=== PATIENT | male | born 1960 | race Caucasian/White ===

== ENCOUNTER 2020-03-01 09:05 | Outpatient (REF) | payer OTHER, SELFPAY ==
--- NOTE | 2020-03-01 09:21 | US_ITS ---
EXAMINATION: US SCROTUM CLINICAL INFORMATION: Left testicle pain. COMPARISON: None TECHNIQUE: A sonogram of the scrotum was performed assessing estrada-scale appearance and color Doppler flow. Spectral Doppler analysis of the arterial and venous flow were performed in the testes bilaterally. FINDINGS: RIGHT: Right testicle measures 4.5 x 2.3 x 3.1 cm, volume 16 mL. No focal testicular parenchymal lesions are visualized. Spectral Doppler analysis of the arterial and venous flow is normal in the right testis. Right epididymal head is normal in size. There is a small 3 mm right epididymal head cyst. Right epididymal Doppler flow is normal. There is a small right hydrocele. There is no right varicocele. LEFT: Left testicle measures 3.3 x 2.1 x 2.8 cm, volume 10 mL. No focal testicular parenchymal lesions are visualized. Spectral Doppler analysis of the arterial and venous flow is normal in the left testis. Left epididymal head is normal in size. There is a small 3 mm left epididymal head cyst measuring 3 mm. No left hydrocele is seen. Left epididymal Doppler flow is normal. There is a small left hydrocele. There is a left varicocele. US/US scrotum IMPRESSION: Left varicocele. Small bilateral hydroceles, left greater than right. Small bilateral epididymal head cysts.
== END 2020-03-01 09:06 | disposition home or self-care (01) ==
LOC: HO.HMGCX 09:05
PROVIDERS: PCP Internal Medicine; Visit Provider Nurse Practitioner Family
DX: N50.812 Left testicular pain (principal)
CPT/HCPCS: 76870

== ENCOUNTER → 2020-03-03 09:05 | Outpatient (BNVA) | payer OTHER, SELFPAY | PROVIDERS: PCP Internal Medicine; Visit Provider Urology | DX: I86.1 Scrotal varices (principal); N50.812 Left testicular pain | CPT/HCPCS: 99212 ==

== ENCOUNTER 2020-03-13 09:53 | Day surgery (SDC) | payer OTHER, SELFPAY ==
[2020-03-13] VITALS (16 sets, daily range): BP systolic 87–127; BP diastolic 45–79; PULSE 56–84; RESP 16–20; TEMP 36.1–36.6; O2SAT 94–98; BMI 31.0
--- NOTE | 2020-03-13 11:43 | MHC.SHP ---
Pre-Procedural Eval Section A The patient is an INPATIENT: No Changes since office visit: No Cold of Flu in the past 2 weeks, No New Medical Problems, No Changes in Medication and No Patient answered all questions The History & Physical has been completed within 30 days and I have reviewed it.: Yes Section B Chief Complaint: Left Testicular Pain Allergies: Allergies Allergy/AdvReac Type Severity Reaction Status Date / Time No Known Allergies Allergy Unverified 03/01/20 08:40 [No Known Allergies*] Plan Patient has been examined and remains a candidate for the planned procedure
--- NOTE | 2020-03-13 13:10 | P.CONAN_ITS ---
FORMERLY [facility], [facility] Social History Social History Smoking Status: Former smoker Use of substances other than those prescribed or required for medical reasons: No Advance Directives: No Advance Directives Information Provided: Yes Meds Allergies Allergy/AdvReac Type Severity Reaction Status Date / Time No Known Allergies Allergy Unverified 03/01/20 08:40 [No Known Allergies*] Home Medications Medication Instructions Recorded Confirmed Type albuterol sulfate 90 mcg/actuation 0 mcg INHALATION 03/01/20 History aerosol inhaler amoxicillin 500 mg tablet 500 mg PO Q8H 03/01/20 History azithromycin 250 mg tablet mg PO DIRECTED 03/01/20 History betamethasone dipropionate 0.05 % applic TOPICAL DAILY 03/01/20 History topical cream bupropion HCl 100 mg tablet,12 hr 100 mg PO BID 03/01/20 History sustained-release clobetasol 0.05 % topical ointment 1 applic TOPICAL BID 03/01/20 History duloxetine 30 mg capsule,delayed 90 mg PO BEDTIME 03/01/20 History release flu vacc [id number] 6mos up(PF) ml IM 03/01/20 History fluticasone propionate 50 2 spray INTRANASAL DAILY 03/01/20 History mcg/actuation nasal spray,suspension hydrocortisone 2.5 % topical cream applic TOPICAL 03/01/20 History hydrocortisone 2.5 % topical TOPICAL DAILY 03/01/20 History ointment ibuprofen 800 mg tablet 800 mg PO TID 03/01/20 History lamotrigine 100 mg tablet 100 mg PO DAILY 03/01/20 History lamotrigine 200 mg tablet 200 mg PO DAILY 03/01/20 History lorazepam 0.5 mg tablet 0.5 mg PO BID PRN 03/01/20 History methylprednisolone 4 mg tablets in mg PO 03/01/20 History a dose pack prednisone 10 mg tablet 0 mg PO 03/01/20 History tadalafil 20 mg tablet 20 mg PO 03/01/20 History triamcinolone acetonide 0.1 % applic TOPICAL 03/01/20 History topical cream Exam Exam Date and Time: March 13, 2020 1310 Height,Weight and Vital Signs: Height 5 ft 9 in Weight 95.254 kg Last Vital Signs Temp 96.9 F 03/13/20 10:59 Pulse 73 03/13/20 10:59 Resp 18 03/13/20 10:59 BP 124/72 03/13/20 10:59 Pulse Ox 98 03/13/20 10:59 Airway Mallampati Class: II TM Dist: >3cm Neck ROM: Full Assessment and Plan Assessment Anesthesia Assessment: Anesthesia Plan Discussed and Chart Reviewed Final Anesthetic Review NPO: Yes ASA Class: II Final Preanesthetic Review: No Changes in Pt Med Stat, Meds/Allgs Chart Reviewed, Consent Obtained/Reviewed and Anes Risks/Benef Reviewed Patient Risk: Low Procedure Risk: Low Assessment/Block/Sedation in SS: Assess/Block/Sedation-SS Anesthetic Plan Anesthetic Plan: GA Disposition: Standard PACU
--- NOTE | 2020-03-13 13:50 | PM.OP ---
Brief Operative Note Date of Service: 03/13/20 Pre-op diagnosis: 1. left varicocele 2. left testicular pain Post-op diagnosis: same Procedure: 1. left varicocelectomy 2. left denervation of the cord Surgeon: Horace Dudley MD Anesthesia: GLMA Estimated blood loss (mL): 0 Pathology: none sent Condition: stable Disposition: same day
--- NOTE | 2020-03-13 13:51 | W.PM.OPN ---
Operative Note Operative Note Date of Service: 03/13/20 Narrative: PreOperative Diagnosis: 1. Left varicocele, 2. Left testicular pain persistent Post Operative Diagnosis: same Procedure: 1. left varicocelectomy 2. denervation of the left cord Surgeon: Dr Horace Dudley Anesthesia: general Indications for procedure: this is a 59-year-old male. Persistent pain on left testicle. On visits to the office was given a cord block which addressed the pain on the left side for 8-10 hours. Given the findings and response to a cord block there is an 85% chance that had has pain can be controlled with then evaluation of the left cord. In addition he has a left varicocele that male may not be contributing to pain. These procedures will be performed with the operative microscope. Risks and benefits including but not limited to loss of testicle have been discussed. Procedure: After informed consent was verified the patient was brought to the operating room and placed in a supine position. anesthesia was administered per protocol. The patient was prepped and draped in sterile fashion. Safety pause time-out was observed. Site was confirmed. A 1 and 1/2 inch subinguinal incision on the left side was marked. Skin was infiltrated with local anesthetic. Sharp dissection was used through the skin into the subcutaneous tissue. Subcutaneous tissue was dissected down until the cord was found. The cord was elevated and isolated using a Julio drain. It was then placed on top of a blade handle. The operative microscope was brought into position. Using the operative microscope dissection was started. The surrounding invagination of the cremasteric fibers were divided 1st longitudinally and then circumferentially using bipolar cautery and sharp dissection. The cord itself was divided 2 packets. The vas deferens with this associated small vessels. And the rest of the cord along with the fat -around these vessels. Focus was 1st brought to the vas deferens. This packet was thinned down till there were remaining veins in a presume small artery. The vas itself was isolated and using a sharp blade the sheath for a 1 cm distance was scraped to remove surface nerves as part of the denervation procedure. The 2nd packet was examined and muscle fibers divided. There were noted to be 2 large veins. There was noted to be a 3rd structure with a thick wall. Using the Doppler this confirmed to be a cord artery. This was dissected free and isolated. The veins were dissected free and using 4-0 silk ties were isolated and divided. At the completion of the dissection there was a vas deferens with associated vessels and lymphatics. There was also a 2nd cord packet containing the artery and 2 lymphatics. All veins had been divided in the non vas deferens packet. The incision was irrigated. The cord replaced. The deep tissues were closed using interrupted 3-0 Vicryl ties. The skin was closed using a running 4-0 in subcuticular Maxon. Dressing applied. He tolerated the procedure well was extubated in operating room and transferred in stable condition to the recovery area. Recommend ice to area today and 3 days rest before commencing activity. This is the end of the dictation by Pathology: None Drains: none
[2020-03-13] MEDS: Acetaminophen 325 MG TABLET 650 MG PO (14:13)
[2020-03-13] MEDS: oxyCODONE HCl Immed Release 5 MG TABLET PO (14:13)
[2020-03-13] MEDS: ondansetron HCL 4 MG/2 ML VIAL IVPUSH (15:17)
== END 2020-03-13 16:30 | disposition home or self-care (01) ==
PROVIDERS: PCP Internal Medicine; Visit Provider Urology
PROC: (CPT 55530; principal; 2020-03-13 11:50)
PROC: (CPT 55530; 2020-03-13 11:50)
DX: N50.812 Left testicular pain (principal); I86.1 Scrotal varices; N41.1 Chronic prostatitis; Z79.899 Other long term (current) drug therapy; Z79.52 Long term (current) use of systemic steroids; Z79.51 Long term (current) use of inhaled steroids; Z87.891 Personal history of nicotine dependence
CPT/HCPCS: 55530; J1100; J2250; J2405; J3010

== ENCOUNTER 2020-04-19 10:19 | Emergency (ER) | payer OTHER, SELFPAY ==
--- NOTE | 2020-04-19 10:28 | US_ITS ---
EXAMINATION: US SCROTUM CLINICAL INFORMATION: Left testicular pain. COMPARISON: None TECHNIQUE: A sonogram of the scrotum was performed assessing estrada-scale appearance and color Doppler flow. Spectral Doppler analysis of the arterial and venous flow were performed in the testes bilaterally. FINDINGS: RIGHT: Right testicle measures 4.2 x 2.3 x 2.8 cm, volume 13.8 mL. No focal testicular parenchymal lesions are visualized. Spectral Doppler analysis of the arterial and venous flow is normal in the right testis. Right epididymal head is normal in size. There is a small right epididymal head cyst that measures 3 mm. No right hydrocele or varicocele is seen. Right epididymal Doppler flow is normal. LEFT: Left testicle measures 3.6 x 2.6 x 2.8 cm, volume 13.4 mL. No focal testicular parenchymal lesions are visualized. Spectral Doppler analysis of the arterial and venous flow is seen in the left testis however color flow appears slightly decreased compared to the right side. Left epididymal head is normal in size. There is a large left varicocele. There is a small left hydrocele.. Left epididymal Doppler flow is normal. US/US scrotum doppler IMPRESSION: Normal-appearing testicles. Arterial and venous flow is documented to the left testicle however color flow appears slightly decreased on the left compared to the right side. If there is clinical suspicion of torsion, nuclear medicine scan would be recommended. Large left varicocele. Small left hydrocele.
[2020-04-19 10:37] VITALS: BP 131/76; PULSE 103; RESP 16; TEMP 36.2; O2SAT 97; BMI 32.8
--- NOTE | 2020-04-19 10:58 | ED_ITS ---
HPI - Male Genitourinary General Chief complaint: Urogenital-Male Stated complaint: testicular pain Time Seen by Provider: 04/19/20 10:27 Source: patient Mode of arrival: ambulatory Limitations: no limitations History of Present Illness HPI Narrative: 59 y/o male with history of persistent left testicular pain with history of varicocele s/p left varicocelectomy & denervation of the left cord on 03/13/[address] Dudley who presents to the ER with 1 week of worsening left testicular pain, swelling and difficulty voiding. He states the pain has been worsening each day. It started in his left testicle, now involves his entire scrotum, pelvis and low back. He feels like he can't completely empty his bladder and it hurts to pee. He denies fever, chills, N/V, diarrhea, hematuria, penile discharge. MD Complaint: testicle pain and testicle swelling Onset (ago): week(s) (1) Duration: constant Location: left testicle Radiation: abdomen Severity: moderate Severity scale (1-10): 6 Quality: aching and burning Relieving factors: none Exacerbating factors: urination Context: recent surgery Associated symptoms: Reports swelling, urinary retention and dysuria Related Data Sexually active: No Home Medications Medication Instructions Recorded Confirmed albuterol sulfate 90 mcg/actuation 0 mcg INHALATION 03/01/20 aerosol inhaler amoxicillin 500 mg tablet 500 mg PO Q8H 03/01/20 azithromycin 250 mg tablet mg PO DIRECTED 03/01/20 betamethasone dipropionate 0.05 % applic TOPICAL DAILY 03/01/20 topical cream bupropion HCl 100 mg tablet,12 hr 100 mg PO BID 03/01/20 sustained-release clobetasol 0.05 % topical ointment 1 applic TOPICAL BID 03/01/20 duloxetine 30 mg capsule,delayed 90 mg PO BEDTIME 03/01/20 release flu vacc [id number] 6mos up(PF) ml IM 03/01/20 fluticasone propionate 50 2 spray INTRANASAL DAILY 03/01/20 mcg/actuation nasal spray,suspension hydrocortisone 2.5 % topical cream applic TOPICAL 03/01/20 hydrocortisone 2.5 % topical TOPICAL DAILY 03/01/20 ointment ibuprofen 800 mg tablet 800 mg PO TID 03/01/20 lamotrigine 100 mg tablet 100 mg PO DAILY 03/01/20 lamotrigine 200 mg tablet 200 mg PO DAILY 03/01/20 lorazepam 0.5 mg tablet 0.5 mg PO BID PRN 03/01/20 methylprednisolone 4 mg tablets in mg PO 03/01/20 a dose pack prednisone 10 mg tablet 0 mg PO 03/01/20 tadalafil 20 mg tablet 20 mg PO 03/01/20 triamcinolone acetonide 0.1 % applic TOPICAL 03/01/20 topical cream Previous Rx's Medication Instructions Recorded tramadol 50 mg PO Q6H PRN #14 tab 03/13/20 ciprofloxacin HCl 500 mg PO Q12H #14 tab 04/19/20 oxycodone-acetaminophen [Percocet] 1 tab PO Q6H PRN #10 tab 04/19/20 Allergies Allergy/AdvReac Type Severity Reaction Status Date / Time No Known Allergies Allergy Unverified 03/01/20 08:40 [No Known Allergies*] Review of Systems Review of Systems: Constitutional: No Fever, No Chills ENT/Mouth: No sore throat, No Rhinorrhea, No Swallowing Difficulty Eyes: No Eye Pain, No Swelling, No Redness Cardiovascular: No Chest Pain, No SOB, No Orthopnea, No Edema Respiratory: No Cough, No Sputum, No Wheezing, No dyspnea Gastrointestinal: No Nausea, No Vomiting, No Diarrhea, No abdominal Pain, No Hematochezia, No Melena Genitourinary: + Dysuria, No Urinary Frequency, No Hematuria Musculoskeletal: No joint pain, No Myalgias Skin: No Skin Lesions, No rash Neuro: No Weakness, No Numbness, No Dizziness, No Headache Psych: No Anxiety/Panic, No Depression Heme/Lymph: No Bruising, No Lymphadenopathy Endocrine: No Polyuria, No Polydipsia PMFSH Social History Social History Smoking Status: Former smoker Smoked in Last 30 Days: No Use of substances other than those prescribed or required for medical reasons: No Advance Directives: No Advance Directives Information Provided: Yes Physical Exam Vital Signs: Vital Signs: Last Vital Signs Temp 97.2 F 04/19/20 10:37 Pulse 83 04/19/20 12:07 Resp 18 04/19/20 12:07 BP 115/70 04/19/20 12:07 Pulse Ox 96 04/19/20 12:07 Body Mass Index 32.8 Appearance: Alert. Oriented X3. No acute distress. Eyes: Pupils equal, round and reactive to light. ENT: Pharynx normal. Neck: Normal inspection. Neck supple. CVS: Normal heart rate and rhythm. Pulses normal. Respiratory: No respiratory distress. Breath sounds normal. Abdomen: Obses, Soft with suprapubic tenderness, normal +BS x4 Genitalis: left varicocele that extends poseriorly, tender, enlarged and tender epidydimus on the left. normal penis, circumcised. Skin: Skin warm and dry. Normal skin color. Normal skin turgor. No rashes. Extremities: No lower extremity edema. Neuro: Oriented X 3. No motor deficit. No sensory deficit. Course Course Course Narrative: 59 y/o male with history of left varicocelectomy & denervation of the left cord on 03/13 presenting with worsening testicular pain x1 week with difficulty voiding x2 days. US and UA pending. Reevaluation(s) Reevaluation #1: US shows Normal-appearing testicles. Arterial and venous flow is documented to the left testicle however color flow appears slightly decreased on the left compared to the right side. If there is clinical suspicion of torsion, nuclear medicine scan would be recommended. Large left varicocele. Small left hydrocele. Doubt testicular torision given his presentation. UA negative. PVR residual Results were relayed to Dr. Dudley who would like to start antibiotics, give meds for pain control and have him follow up in the office early next week. He was informed of the results and the plan, he agrees. Stable for d/c. [facility] - Male Genitourinary Lab Data Result diagrams: 04/19/20 12:08 04/19/20 12:08 Labs: Lab Results 04/19/20 04/19/20 04/19/20 Range/Units 12:00 12:08 12:08 WBC 7.6 (4.8-10.8) X10*3/uL RBC 4.53 L (4.60-5.80) X10*6/uL Hgb 14.0 (14.0-18.0) g/dl Hct 41.3 L (42-52) % MCV 91.2 (80-98) fL MCH 30.9 (27.0-33.0) pg MCHC 33.9 (31.0-36.0) g/dl RDW 11.6 (11.0-16.0) % Plt Count 299 (160-400) X10*3/uL MPV 9.4 (9.4-12.4) fL Immature Gran % (Auto) 0.3 (0.0-0.4) % Neut % (Auto) 56.7 (45-73) % Lymph % (Auto) 29.9 (20-40) % Stephenson % (Auto) 9.3 (2-11) % Eos % (Auto) 3.1 (0-4) % Baso % (Auto) 0.7 (0-2) % Lymph # (Auto) 2.3 (1.2-4.9) X10*3/uL [place] # (Auto) 0.7 (0.1-1.2) X10*3/uL Eos # (Auto) 0.2 (0.0-0.4) X10*3/uL Baso # (Auto) 0.1 (0.0-0.2) X10*3/uL Abs Immat Gran (auto) 0.02 (0.00-0.03) X10*3/uL Absolute Neuts (auto) 4.3 (2.0-8.3) X10*3/uL Absolute Nucleated RBC 0.000 (0.0-0.012) X10*3/uL Nucleated RBC % (auto) 0.0 (0.0-0.2) /100WBC Sodium 139 (135-145) mmol/L Potassium 4.3 (3.3-5.1) mmol/l Chloride 103 (96-108) mmol/L Carbon Dioxide 30 H (22-29) mmol/L Anion Gap 10 L (12-20) BUN 10 (9-16) mg/dL Creatinine 0.94 (0.5-1.4) mg/dL Estim Creat Clear Calc 101.4 Estimated GFR > 60 Random Glucose 88 (60-115) mg/dL Calcium 9.2 (8.4-10.2) mg/dL Magnesium 2.2 (1.6-2.6) mg/dL Total Bilirubin 0.5 (0.0-1.0) mg/dL Direct Bilirubin 0.2 (0.0-0.5) mg/dL AST 16 (5-37) U/L ALT 21 (0-40) U/L Alkaline Phosphatase 68 (39-117) U/L Total Protein 6.8 (6.5-8.0) g/dL Albumin 4.2 (3.5-5.0) g/dL Urine Color YELLOW Urine Appearance CLEAR Urine pH 7.0 (5.0-8.0) Ur Specific [place] 1.020 (1.005-1.025) Urine Protein NEG (NEG-TRACE) MG/DL Urine Glucose (UA) NEG (NEG) MG/DL Urine Ketones NEG (NEG) MG/DL Urine Blood NEG (NEG) Urine Nitrite NEG (NEG) Ur Leukocyte Esterase NEG (NEG) Discharge Plan Discharge Clinical Impression: Epididymitis, Varicocele Patient Disposition: Home, Self-Care Instructions: Varicocele (ED), Testicle Pain (ED) Additional Instructions: Ultrasound today showed large left varicocele. Your urine test today was normal. Your lab workup was also unremarkable. Dr. Dudley would like to see you in the office early next week, call to make an appointment. Prescriptions: New ciprofloxacin HCl 500 mg tablet 500 mg PO Q12H Qty: 14 RF: 0 oxycodone-acetaminophen [Percocet] 5-325 mg tablet 1 tab PO Q6H PRN (Reason: pain) Qty: 10 RF: 0 No Action tramadol 50 mg tablet 50 mg PO Q6H PRN (Reason: pain) Qty: 14 RF: 0 clobetasol 0.05 % ointment 1 applic topical BID RF: 0 fluticasone propionate 50 mcg/actuation spray,suspension 2 spray intranasal DAILY RF: 0 flu vacc [id number] 6mos up(PF) 60 mcg (15 mcg x 4)/0.5 mL syringe IM RF: 0 lamotrigine 200 mg tablet 200 mg PO DAILY RF: 0 bupropion HCl 100 mg tablet sustained-release 12 hr 100 mg PO BID RF: 0 betamethasone dipropionate 0.05 % cream topical DAILY RF: 0 prednisone 10 mg tablet 0 mg PO RF: 0 duloxetine 30 mg capsule,delayed release(DR/EC) 90 mg PO BEDTIME RF: 0 amoxicillin 500 mg tablet 500 mg PO Q8H RF: 0 ibuprofen 800 mg tablet 800 mg PO TID RF: 0 hydrocortisone 2.5 % ointment topical DAILY RF: 0 albuterol sulfate 90 mcg/actuation HFA aerosol inhaler 0 mcg inhalation RF: 0 azithromycin 250 mg tablet PO DIRECTED RF: 0 lorazepam 0.5 mg tablet 0.5 mg PO BID PRN (Reason: anxiety) RF: 0 tadalafil 20 mg tablet 20 mg PO RF: 0 triamcinolone acetonide 0.1 % cream topical RF: 0 hydrocortisone 2.5 % cream topical RF: 0 methylprednisolone 4 mg tablets,dose pack PO RF: 0 lamotrigine 100 mg tablet 100 mg PO DAILY RF: 0
[2020-04-19 12:07] VITALS: BP 115/70; PULSE 83; RESP 18; O2SAT 96
[2020-04-19 12:18] LABS: Glucose Urine UA NEG (NEG); Leukocyte Esterase Urine NEG (NEG); Nitrite Urine NEG (NEG); Urine Blood NEG (NEG); Urine Ketones NEG (NEG); Urine Protein NEG (NEG-TRACE)
[2020-04-19 12:19] LABS: Appearance Urine CLEAR; Color Urine YELLOW
[2020-04-19 12:25] LABS: Basophils Absolute Auto 0.1 X10*3/uL (0.0-0.2); Basophils Percent Auto 0.7 % (0-2); Eosinophils Absolute Auto 0.2 X10*3/uL (0.0-0.4); Eosinophils Percent Auto 3.1 % (0-4); Hematocrit 41.3 % (42-52); Imm Gran Abs Auto 0.02 X10*3/uL (0.00-0.03); Imm Gran Pct Auto 0.3 % (0.0-0.4); Lymphocytes Absolute Auto 2.3 X10*3/uL (1.2-4.9); Lymphocytes Percent Auto 29.9 % (20-40); MANUAL DIFF FLAG NO; Mean Corpuscular HGB Conc 33.9 g/dl (31.0-36.0); Mean Corpuscular Hemoglobin 30.9 pg (27.0-33.0); Mean Corpuscular Volume 91.2 fL (80-98); Mean Platelet Volume 9.4 fL (9.4-12.4); Monocytes Absolute Auto 0.7 X10*3/uL (0.1-1.2); Monocytes Percent Auto 9.3 % (2-11); Neutrophils Absolute Auto 4.3 X10*3/uL (2.0-8.3); Neutrophils Percent Auto 56.7 % (45-73); Platelet Count 299 X10*3/uL (160-400); Red Blood Count 4.53 X10*6/uL (4.60-5.80); Red Cell Distribution Width 11.6 % (11.0-16.0); White Blood Count 7.6 X10*3/uL (4.8-10.8)
[2020-04-19 13:02] LABS: Alanine Aminotransferase 21 U/L (0-40); Albumin Level 4.2 g/dL (3.5-5.0); Alkaline Phosphatase 68 U/L (39-117); Anion Gap 10 (12-20); Aspartate Amino Transferase 16 U/L (5-37); Bilirubin Direct 0.2 mg/dL (0.0-0.5); Bilirubin Total 0.5 mg/dL (0.0-1.0); Blood Urea Nitrogen 10 mg/dL (9-16); Calcium 9.2 mg/dL (8.4-10.2); Carbon Dioxide 30 mmol/L (22-29); Chloride 103 mmol/L (96-108); Creatinine Clr Calc Pharmacy 101.4; Estimated Glomerular Filt Rate > 60; Glucose Random 88 mg/dL (60-115); Magnesium 2.2 mg/dL (1.6-2.6); Potassium 4.3 mmol/l (3.3-5.1); Sodium 139 mmol/L (135-145); Total Protein 6.8 g/dL (6.5-8.0)
[2020-04-20 20:17] LABS: C. trachomatis RNA TMA NOT DETECTED (NOT DETECTED); N. gonorrhoeae RNA TMA NOT DETECTED (NOT DETECTED)
== END 2020-04-19 13:37 | disposition home or self-care (01) ==
PROVIDERS: Physician Assistant; Emergency Provider Emergency Medicine; PCP Internal Medicine
DX: N45.1 Epididymitis (principal); I86.1 Scrotal varices
CPT/HCPCS: 36415; 51798; 76870; 80048; 80076; 81003; 83735; 85025; 87491; 87591; 93975; 99284

== ENCOUNTER 2020-04-19 15:21 | Emergency (ER) | payer OTHER, SELFPAY ==
[2020-04-19 15:34] VITALS: BP 149/75; PULSE 106; RESP 16; TEMP 36.5; O2SAT 93; BMI 32.8
[2020-04-19 16:19] VITALS: BP 129/68; PULSE 23; RESP 124; TEMP 37.1; O2SAT 95
--- NOTE | 2020-04-19 16:26 | ED.ALLEREA ---
HPI - Allergic Reaction General Chief complaint: Allergic Reaction Stated complaint: med reaction Time Seen by Provider: 04/19/20 16:24 Source: patient Mode of arrival: ambulatory Limitations: no limitations History of Present Illness HPI narrative: 59-year-old male walked into the emergency department with allergic reaction, patient was seen earlier today with left testicular pain, workup showed patient had varicocele with epididymitis, UA not reflect infection however after discussing the case with Dr. Dudley from Urology who requested to cover the patient with several and he will see him next week. Patient took the 1st pill of Cipro and the 1st pill of oxycodone then started to have allergic reaction, itching, rash, wheezing, difficulty breathing, no voice change, no stridor. Related Data Home Medications Medication Instructions Recorded Confirmed albuterol sulfate 90 mcg/actuation 0 mcg INHALATION 03/01/20 aerosol inhaler amoxicillin 500 mg tablet 500 mg PO Q8H 03/01/20 azithromycin 250 mg tablet mg PO DIRECTED 03/01/20 betamethasone dipropionate 0.05 % applic TOPICAL DAILY 03/01/20 topical cream bupropion HCl 100 mg tablet,12 hr 100 mg PO BID 03/01/20 sustained-release clobetasol 0.05 % topical ointment 1 applic TOPICAL BID 03/01/20 duloxetine 30 mg capsule,delayed 90 mg PO BEDTIME 03/01/20 release flu vacc [id number] 6mos up(PF) ml IM 03/01/20 fluticasone propionate 50 2 spray INTRANASAL DAILY 03/01/20 mcg/actuation nasal spray,suspension hydrocortisone 2.5 % topical cream applic TOPICAL 03/01/20 hydrocortisone 2.5 % topical TOPICAL DAILY 03/01/20 ointment ibuprofen 800 mg tablet 800 mg PO TID 03/01/20 lamotrigine 100 mg tablet 100 mg PO DAILY 03/01/20 lamotrigine 200 mg tablet 200 mg PO DAILY 03/01/20 lorazepam 0.5 mg tablet 0.5 mg PO BID PRN 03/01/20 methylprednisolone 4 mg tablets in mg PO 03/01/20 a dose pack prednisone 10 mg tablet 0 mg PO 03/01/20 tadalafil 20 mg tablet 20 mg PO 03/01/20 triamcinolone acetonide 0.1 % applic TOPICAL 03/01/20 topical cream Previous Rx's Medication Instructions Recorded tramadol 50 mg PO Q6H PRN #14 tab 03/13/20 ciprofloxacin HCl 500 mg PO Q12H #14 tab 04/19/20 oxycodone-acetaminophen [Percocet] 1 tab PO Q6H PRN #10 tab 04/19/20 Allergies Allergy/AdvReac Type Severity Reaction Status Date / Time No Known Allergies Allergy Verified 04/19/20 15:41 [No Known Allergies*] Review of Systems Review of Systems: All other systems are reviewed and are negative Constitutional: Reports as per HPI and Reports no additional constitutional complaints Eyes: Reports as per HPI and Reports no additional eye complaints Reports system reviewed and no additional complaints, except as documented Cardiovascular: Reports as per HPI and Reports no additional cardiovascular complaints Respiratory: Reports as per HPI and Reports no additional respiratory complaints Gastrointestinal: Reports as per HPI and Reports no additional gastrointestinal complaints Genitourinary: Reports no additional female genitourinary complaints Musculoskeletal: Reports no additional musculoskeletal complaints Skin/Breast: Reports system reviewed and no additional complaints, except as docu Psychiatric: Reports no additional psychiatric complaints Endocrine: Reports no additional endocrine complaints Hematologic/Lymphatic: Reports no additional hematologic/lymphatic complaints Allergic/Immunologic: Reports no additional allergic/immunologic complaints Reports system reviewed and no additional complaints, except as documented and Reports Abnormal speech present [facility] Past Medical History Medical History Asthma Varicocele present on ultrasound of scrotum Social History Social History Smoking Status: Former smoker Advance Directives: No Advance Directives Information Provided: Yes Physical Exam Vital Signs: Vital Signs: Last Vital Signs Temp 97.7 F 04/19/20 15:34 Pulse 102 H 04/19/20 16:53 Resp 16 04/19/20 15:34 BP 149/75 H 04/19/20 15:34 Pulse Ox 93 04/19/20 15:34 Body Mass Index 32.8 Vital signs have been reviewed as normal and appeared to be correct. Blood pressure on the high range. Tachycardic. Respiration rate normal. Temperature normal. Oxygen saturation normal. Appearance: Alert. Oriented X3. No acute distress. Head: Normal external exam. Normocephalic. Atraumatic. No Sharp signs noted. No raccoon eyes noted Eyes: PERRLA. EOMI. Conjunctiva and sclera normal. Eyelids normal. ENT: EAC normal. TM's Normal. Pharynx normal. Uvula midline. Moist mucous membranes. No trismus noted. No drooling noted. No muffled voice noted. Neck: Normal inspection. Neck supple. FROM. No adenopathy. Thyroid Normal. No meningeal signs. No neck mass noted. CVS: Tachycardic, Normal heart rate rhythm. Heart sound normal. No murmurs noted. Pulses normal throughout. Respiratory: No respiratory distress. Painless inspiration. Breath sounds normal. Mild expiratory wheezes/no rales/rhonchi noted. Chest nontender. No accessory muscle usage noted or decreased air movement noted. Abdomen: Soft and nontender. Bowel sounds normal in all 4 quadrants. No distention noted. No organomegaly noted. No visible injury noted. Back: No CVA tenderness. Full range of motion noted. Skin: Skin warm and dry. Normal skin color. Normal skin turgor. Diffuse hives on 4 extremities and trunk./lesions/lacerations noted. Extremities: No lower extremity edema. Extremities exhibit normal range of motion. Extremities nontender. Neuro: Oriented X 3. No motor deficit. No sensory deficit. Reflexes normal. MDM - Allergic Reaction MDM Narrative Medical decision making narrative: Assessment and plan. 59-year-old male who was seen here today for left testicular pain and diagnosed with varicocele/epididymitis on the left side, patient declined any a risk for STDs, patient also has very clear UA not indicated for infection, clinically patient do not need antibiotic coverage with a clear UA patient was advised to drink plenty of fluids and use NSAIDs for pain. Patient is a ready having an appointment with next week. Discharge Plan Discharge Clinical Impression: Allergic reaction, Adverse reaction to drug Patient Disposition: Home, Self-Care Instructions: General Allergic Reaction (ED) Additional Instructions: Drink plenty of fluids, use Motrin 200 mg by mouth every 6 hours if needed for pain. Keep your appointment with Dr. Dudley as scheduled next week. Do not take ciprofloxacin seen because you are allergic to it. Prescriptions: No Action tramadol 50 mg tablet 50 mg PO Q6H PRN (Reason: pain) Qty: 14 RF: 0 ciprofloxacin HCl 500 mg tablet 500 mg PO Q12H Qty: 14 RF: 0 oxycodone-acetaminophen [Percocet] 5-325 mg tablet 1 tab PO Q6H PRN (Reason: pain) Qty: 10 RF: 0 clobetasol 0.05 % ointment 1 applic topical BID RF: 0 fluticasone propionate 50 mcg/actuation spray,suspension 2 spray intranasal DAILY RF: 0 flu vacc [id number] 6mos up(PF) 60 mcg (15 mcg x 4)/0.5 mL syringe IM RF: 0 lamotrigine 200 mg tablet 200 mg PO DAILY RF: 0 bupropion HCl 100 mg tablet sustained-release 12 hr 100 mg PO BID RF: 0 betamethasone dipropionate 0.05 % cream topical DAILY RF: 0 prednisone 10 mg tablet 0 mg PO RF: 0 duloxetine 30 mg capsule,delayed release(DR/EC) 90 mg PO BEDTIME RF: 0 amoxicillin 500 mg tablet 500 mg PO Q8H RF: 0 ibuprofen 800 mg tablet 800 mg PO TID RF: 0 hydrocortisone 2.5 % ointment topical DAILY RF: 0 albuterol sulfate 90 mcg/actuation HFA aerosol inhaler 0 mcg inhalation RF: 0 azithromycin 250 mg tablet PO DIRECTED RF: 0 lorazepam 0.5 mg tablet 0.5 mg PO BID PRN (Reason: anxiety) RF: 0 tadalafil 20 mg tablet 20 mg PO RF: 0 triamcinolone acetonide 0.1 % cream topical RF: 0 hydrocortisone 2.5 % cream topical RF: 0 methylprednisolone 4 mg tablets,dose pack PO RF: 0 lamotrigine 100 mg tablet 100 mg PO DAILY RF: 0 Referrals: Horace Dudley MD [Physician] - 2 days
[2020-04-19] MEDS: diphenhydrAMINE HCL 50 MG/ML VIAL 25 MG IVPUSH (16:39)
[2020-04-19] MEDS: 0.9 % Sodium Chloride 1,000 ML 999 ML IVCONT (16:40)
[2020-04-19] MEDS: Famotidine/PF 20 MG/2 ML VIAL IVPUSH (16:43)
[2020-04-19] MEDS: Albuterol/Iprat 2.5/0.5MG 3 ML AMPUL.NEB INHALE (16:49)
[2020-04-19 16:53] VITALS: PULSE 102; O2SAT 93
[2020-04-19 18:04] VITALS: BP 113/69; PULSE 95; RESP 16; TEMP 37.1; O2SAT 96
== END 2020-04-19 18:20 | disposition home or self-care (01) ==
PROVIDERS: Emergency Provider Emergency Medicine; PCP Internal Medicine
DX: L50.9 Urticaria, unspecified (principal); T36.8X5A Adverse effect of other systemic antibiotics, initial encounter; Y92.009 Unspecified place in unspecified non-institutional (private) residence as the place of occurrence of the external cause
CPT/HCPCS: 96365; 96375; 99284; J1200; J2930

== ENCOUNTER → 2020-04-25 14:50 | Outpatient (BNVA) | payer OTHER, SELFPAY | PROVIDERS: PCP Internal Medicine; Visit Provider Urology | DX: Z13.89 Encounter for screening for other disorder (principal) | CPT/HCPCS: 99212; Q3014 ==

== ENCOUNTER → 2020-05-26 14:18 | Outpatient (BNVA) | payer OTHER, SELFPAY | PROVIDERS: Visit Provider Urology | DX: N41.9 Inflammatory disease of prostate, unspecified (principal); N50.812 Left testicular pain | CPT/HCPCS: 99212; Q3014 ==

== ENCOUNTER 2020-08-09 08:03 | Outpatient (REF) | payer OTHER, SELFPAY ==
[2020-08-09 09:19] LABS: Glucose Urine UA NEG (NEG); Leukocyte Esterase Urine NEG (NEG); Nitrite Urine NEG (NEG); PH 6.5 (5.0-8.0); Specific Gravity - Urine 1.025 (1.005-1.025); Urine Blood NEG (NEG); Urine Ketones NEG (NEG); Urine Protein NEG (NEG-TRACE)
[2020-08-09 09:20] LABS: Appearance Urine HAZY; Color Urine YELLOW
[2020-08-09 09:38] LABS: Cholesterol 172 mg/dL; HDL Cholesterol 39 mg/dL; LDL Cholesterol Calculated 113 mg/dl; Triglycerides 102 mg/dL
== END 2020-08-09 08:04 | disposition home or self-care (01) ==
LOC: HO.LAB 08:03
PROVIDERS: PCP Internal Medicine; Visit Provider Internal Medicine
DX: Z00.00 Encounter for general adult medical examination without abnormal findings (principal); E78.00 Pure hypercholesterolemia, unspecified
CPT/HCPCS: 36415; 80061; 81003

== ENCOUNTER 2020-09-11 08:45 | Outpatient (REF) | payer OTHER, SELFPAY ==
--- NOTE | ~2020-09-11 | XR_ITS ---
EXAMINATION: XR SHOULDER, LEFT CLINICAL INFORMATION: Pain COMPARISON: None TECHNIQUE: AP external rotation, Grashey, scapular Y, and axillary views of the left shoulder. FINDINGS: There is a soft tissue calcification superior to the greater tuberosity likely calcific bursitis. No visible acute fracture or dislocation seen. The glenohumeral joint space is maintained normal. There is loss of left AC joint space. The soft tissues are normal. XR/XR shoulder LT min 2V IMPRESSION: Likely calcific bursitis left shoulder. No visible acute fracture or dislocation seen.
== END 2020-09-11 08:46 | disposition home or self-care (01) ==
LOC: HO.HMGCX 08:45
PROVIDERS: PCP Internal Medicine; Visit Provider Hospitalist
DX: M25.512 Pain in left shoulder (principal)
CPT/HCPCS: 73030

== ENCOUNTER → 2020-09-29 12:57 | Outpatient (BNVA) | payer OTHER, SELFPAY | PROVIDERS: PCP Internal Medicine | DX: N52.9 Male erectile dysfunction, unspecified (principal); N41.9 Inflammatory disease of prostate, unspecified; I86.1 Scrotal varices | CPT/HCPCS: 51798; 99212 ==

== ENCOUNTER → 2020-12-19 10:49 | Outpatient (BNVA) | payer OTHER, SELFPAY | PROVIDERS: PCP Hospitalist; Visit Provider Orthopaedic Surgery | DX: M75.40 Impingement syndrome of unspecified shoulder (principal) | CPT/HCPCS: 99202 ==

== ENCOUNTER → 2020-12-29 11:45 | Outpatient (BNVA) | payer OTHER, SELFPAY | PROVIDERS: Visit Provider Urology | DX: I86.1 Scrotal varices (principal); N50.812 Left testicular pain | CPT/HCPCS: Q3014 ==

== ENCOUNTER 2021-01-05 13:34 | Outpatient (REF) | payer OTHER, SELFPAY ==
--- NOTE | ~2021-01-05 | US_ITS ---
EXAMINATION: US SCROTUM CLINICAL INFORMATION: Hydrocele, unspecified. COMPARISON: Ultrasound scrotum 04/19/2020. TECHNIQUE: A sonogram of the scrotum was performed assessing estrada-scale appearance and color Doppler flow. Spectral Doppler analysis of the arterial and venous flow were performed in the testes bilaterally. FINDINGS: RIGHT: Right testicle measures 4.6 x 2.3 x 2.9 cm, volume 16.0 mL. No focal testicular parenchymal lesions are visualized. Spectral Doppler analysis of the arterial and venous flow is normal in the right testis. There are 3 mm and 4 mm cysts in the right epididymal head. Small right hydrocele. Right epididymal Doppler flow is normal. LEFT: Left testicle measures 4.1 x 2.1 x 2.8 cm, volume 12.6 mL. No focal testicular parenchymal lesions are visualized. Spectral Doppler analysis of the arterial and venous flow is normal in the left testis. 3 mm cyst in the left epididymal head. Left epididymal Doppler flow is normal. Small left hydrocele. There are prominent paratesticular veins bilaterally, 3 to 4 mm, which may represent small varicoceles. US/US scrotum IMPRESSION: Small bilateral hydroceles. Bilateral epididymal head cysts.
== END 2021-01-05 13:35 | disposition home or self-care (01) ==
LOC: HO.HMGCX 13:34
PROVIDERS: PCP Internal Medicine; Visit Provider Urology
DX: N43.3 Hydrocele, unspecified (principal); I86.1 Scrotal varices
CPT/HCPCS: 76870

== ENCOUNTER → 2021-01-17 14:05 | Outpatient (BNVA) | payer OTHER, SELFPAY | PROVIDERS: PCP Internal Medicine; Visit Provider Urology | DX: N52.9 Male erectile dysfunction, unspecified (principal); I86.1 Scrotal varices | CPT/HCPCS: Q3014 ==

== ENCOUNTER 2021-03-12 10:25 | Day surgery (SDC) | payer OTHER, SELFPAY ==
[2021-03-05 12:17] VITALS: BMI 31.0
[2021-03-12] VITALS (9 sets, daily range): BP systolic 107–133; BP diastolic 66–85; PULSE 65–85; RESP 14–16; TEMP 36.1–36.7; O2SAT 94–99
[2021-03-12] MEDS: Albuterol Sulfate (0.083%) 2.5 MG/3 ML VIAL.NEB INHALE (11:05)
[2021-03-12] MEDS: Lactated Ringers 1,000 ML 50 ML IVCONT (11:12)
--- NOTE | 2021-03-12 11:46 | HO.ANESPROP2 ---
HPI - Anesthesia Eval Consult details Narrative: 60 yo male patient for Left varicocelectomy, recurrent PMFSH Active Problems Active Problems: All Active Problems (Updated 03/05/21 @ 12:11 by Jennifer Babin RN) Testicular pain, left (Acute) Varicocele (Acute) Acute epididymitis (Acute) Prostatitis (Acute) Hypercholesterolemia (Acute) Annual physical exam (Acute) Shoulder pain (Acute) Bilateral shoulder bursitis (Acute) Rotator cuff impingement syndrome (Acute) Erectile dysfunction (Acute) Major depression (Acute) Eczema craquele (Acute) Past Medical History Medical History (Updated 03/05/21 @ 12:11 by Jennifer Babin RN) Asthma Chronic prostatitis Eczema craquele Erectile dysfunction due to arterial insufficiency History of varicocele Major depression Nocturia Varicocele present on ultrasound of scrotum Family History Family History Mother No problems noted. Father No problems noted. 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 [employer] Allergies Allergy/AdvReac Type Severity Reaction Status Date / Time No Known Allergies Allergy Verified 01/17/21 14:10 [No Known Allergies*] Active Medications: Current Medications Lactated Ringer's (Lr) 1,000 mls @ 50 mls/hr IVCONT .Q20H ARTURO Last Admin: 03/12/21 11:12 Dose: 50 mls/hr Documented by: Cefazolin Sodium/Dextrose (Ancef) 2 gm in 50 mls @ 100 mls/hr IV PREOP ONE Stop: 03/12/21 11:48 Home Medications Medication Instructions Recorded Confirmed Last Taken Type betamethasone dipropionate 0.05 % applic TOPICAL DAILY 03/01/20 09/11/20 Unknown History topical cream clobetasol 0.05 % topical ointment 1 applic TOPICAL BID 03/01/20 08/07/20 Unknown History duloxetine 30 mg capsule,delayed 90 mg PO BEDTIME 03/01/20 08/07/20 Unknown History release flu vacc [id number] 6mos up(PF) ml IM 03/01/20 08/07/20 Unknown History fluticasone propionate 50 2 spray INTRANASAL DAILY 03/01/20 08/07/20 Unknown History mcg/actuation nasal spray,suspension lorazepam 0.5 mg tablet 0.5 mg PO BID PRN 03/01/20 09/11/20 Unknown History methylprednisolone 4 mg tablets in mg PO 03/01/20 08/07/20 Unknown History a dose pack albuterol sulfate 90 mcg/actuation 2 inh INHALATION Q6-8H PRN g 01/17/21 Unknown History aerosol inhaler azithromycin 250 mg tablet 250 mg PO DIRECTED 01/17/21 Unknown History bupropion HCl 150 mg tablet,12 hr 150 mg PO BID 01/17/21 Unknown History sustained-release lamotrigine 200 mg tablet 200 mg PO DAILY 01/17/21 Unknown History tadalafil 20 mg tablet 20 mg PO DAILY PRN tab 01/17/21 Unknown History Exam Exam Date and Time: March 12, 2021 1146 Height,Weight and Vital Signs: Height 5 ft 9 in Weight 95.254 kg Last Vital Signs Temp 97.0 F 03/12/21 10:40 Pulse 74 03/12/21 11:08 Resp 16 03/12/21 10:40 BP 133/83 03/12/21 10:40 Pulse Ox 98 03/12/21 10:40 Airway Mallampati Class: III TM Dist: >3cm Neck ROM: Full Heart: RRR Lungs: CTAB Assessment and Plan Assessment Anesthesia Assessment: Anesthesia Plan Discussed and Chart Reviewed Final Anesthetic Review Family History of Problems with Anesthesia: No History of Problems with Anesthesia: No NPO: Yes ASA Class: II Final Preanesthetic Review: No Changes in Pt Med Stat, Meds/Allgs Chart Reviewed, Consent Obtained/Reviewed and Anes Risks/Benef Reviewed Patient Risk: Low Procedure Risk: Low Assessment/Block/Sedation in SS: Assess/Block/Sedation-SS Anesthetic Plan Anesthetic Plan: GA Disposition: Standard PACU
--- NOTE | 2021-03-12 12:30 | P.HPSUR_ITS ---
Pre-Procedural Eval Section A Date of Service: 03/12/21 Section B Chief Complaint: Scrotal varicocele Details of Present Illness: Left scrotal varicocele. Microscopic subinguinal varicocelectomy Relevant Family History (Specify if Yes): No Relevant Social History: None Present Medications: see Short Stay Collaborative assessment Medical History: No relevant PMH History of Previous Operations: Relevant previous surgery/procedure and date(s) Allergies: Allergies Allergy/AdvReac Type Severity Reaction Status Date / Time No Known Allergies Allergy Verified 01/17/21 14:10 [No Known Allergies*] Review of Systems Sugical H&P ROS: Negative: Constitution, Cardiovascular, Respiratory, Neurological, Psychiatric, Hem-Onc, Allergic/Immunologic, Gastrointestinal, Genitourinary, Musculoskeletal, Integumentary, Endocrine and Eyes/Ear s/Nose/Throat Exam Surgical H&P Exam: Normal: HEENT, Normal: Heart, Normal: Lungs, Normal: Extremities, Normal: Abdomen, Normal: Skin and Normal: Neurological Plan Diagnosis/Plan: Unchanged (Left microscopic subinguinal varicocelectomy) I have reviewed the history and physical and performed a pertinent physical examination on my patient. No changes have occurred unless specified.
--- NOTE | 2021-03-12 14:48 | W.PM.OPN ---
Operative Note Operative Note Date of Service: 03/12/21 Narrative: PreOperative Diagnosis: Left persistent testicular varicocele Post Operative Diagnosis: Same Procedure: Left microscopic varicocelectomy Surgeon: Dr Horace Dudley Anesthesia: General Indications for procedure: Persistent left varicocele associated with crumbling left testicular discomfort. Prior denervation procedure. Wished to undergo formal varicocelectomy. Is aware that primary risk is one of testicular loss with devascularization. Procedure: After informed consent was verified the patient was brought to the operating room and placed in a supine position. Anesthesia was administered per protocol. The patient was shaved and prepped and draped in a sterile fashion. Safety pause time-out was performed. Antibiotics had been given. The left inguinal canal was palpated. The prior skin incision was palpated. The incision was infiltrated with local anesthetic. Using a 15 blade skin was incised and dissection was performed in the subcutaneous tissue. Dissection was performed until inguinal cord was isolated. There was some degree of scarring over the top of the cord. Palpation was performed on the symphysis pubis in order to maintain landmarks. After the cord was isolated. The cord was delivered through the incision to the skin surface. A tongue depressor was then used to elevate the cord from the incision. The operating microscope was brought into place. Dissection was then performed on the cord. Muscle fibers surrounding the cord were all dissected. This was performed using bipolar cautery and scissors. The overlying tissue was removed and the cord packets exposed. Fascia was cauterized and dissected from the packet. Working circumferentially around the packet from superior to lateral structures were gently dissected and veins were tied using 4-0 silk suture. The cord itself was identified and had some degree of inflammation from prior procedure. A small vessel could be seen with the cord consistent cord artery. A number of lymphatic channels were left. Medially a large vein was isolated and the testicular artery identified using a Doppler and preserved. When this was complete the cord was examined. The tongue depressor was removed and the cord allowed to sit in its normal position. The area was irrigated with saline. Reapproximation of deep tissue was performed using interrupted 3-0 Vicryl. Skin was reapposed using a 4-0 running Monocryl. Incisions were closed with Dermabond He tolerated the procedure well and was extubated in operating room and transferred in stable condition to the recovery area.
[2021-03-12] MEDS: Acetaminophen 325 MG TABLET 650 MG PO (15:09)
== END 2021-03-12 15:45 | disposition home or self-care (01) ==
PROVIDERS: PCP Internal Medicine; Visit Provider Urology
PROC: (CPT 55530; principal; 2021-03-12 12:50)
DX: I86.1 Scrotal varices (principal); N52.01 Erectile dysfunction due to arterial insufficiency; N41.9 Inflammatory disease of prostate, unspecified; R35.1 Nocturia; J45.909 Unspecified asthma, uncomplicated; F32.9 Major depressive disorder, single episode, unspecified; Z79.899 Other long term (current) drug therapy; F17.200 Nicotine dependence, unspecified, uncomplicated
CPT/HCPCS: 55530; 94640; J0690; J1100; J2405; J3010

== ENCOUNTER 2021-04-16 06:35 | Day surgery (SDC) | payer OTHER, SELFPAY ==
[2021-04-10 10:35] VITALS: BMI 30.5
[2021-04-16 06:44] VITALS: BMI 29.8
[2021-04-16 06:46] VITALS: BP 117/79; PULSE 87; RESP 16; TEMP 36; O2SAT 94
[2021-04-16] MEDS: Lactated Ringers 1,000 ML 50 ML IVCONT (06:55)
--- NOTE | 2021-04-16 07:22 | HO.ANESPROP2 ---
[facility] Active Problems Active Problems: All Active Problems (Updated 03/05/21 @ 12:11 by Jennifer Babin RN) Testicular pain, left (Acute) Varicocele (Acute) Acute epididymitis (Acute) Prostatitis (Acute) Hypercholesterolemia (Acute) Annual physical exam (Acute) Shoulder pain (Acute) Bilateral shoulder bursitis (Acute) Rotator cuff impingement syndrome (Acute) Erectile dysfunction (Acute) Major depression (Acute) Eczema craquele (Acute) Past Medical History Medical History Asthma Chronic prostatitis Eczema craquele Erectile dysfunction due to arterial insufficiency History of varicocele Major depression Nocturia Varicocele present on ultrasound of scrotum Functional capacity: independent ambulation Family History Family History Mother No problems noted. Father No problems noted. Family history of problems with anesthesia: No Surgical History Surgical History (Updated 03/05/21 @ 12:10 by Jennifer Babin RN) H/O colonoscopy Hx of sinus surgery S/P scrotal varicocelectomy History of Problems with Anesthesia: No Social History Social History (Updated 01/17/21 @ 14:11 by GUZMAN Acosta) Alcohol intake: never Patient Tobacco Use Status: Former Tobacco user Tobacco use type: Cigarette Use of substances other than those prescribed or required for medical reasons: No Are you DNR?: No Advance Directives: No Advance Directives Information Provided: Yes Recently lost weight without trying: No Nutrition Risks: No Nutritional Risk Current occupational status: retired 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 occupation: [employer]er [id number] Allergies Allergy/AdvReac Type Severity Reaction Status Date / Time No Known Allergies Allergy Verified 01/17/21 14:10 [No Known Allergies*] Active Medications: Current Medications Sodium Biphosphate/Sodium Phosphate (Sodium Phosphate,[place]-Dibasic 133 Ml Enema) 133 ml NC ONCE PRN PRN Reason: Poor Colonoscopy Prep Results Home Medications Medication Instructions Recorded Confirmed Last Taken Type betamethasone dipropionate 0.05 % applic TOPICAL DAILY 03/01/20 09/11/20 Unknown History topical cream clobetasol 0.05 % topical ointment 1 applic TOPICAL BID 03/01/20 08/07/20 Unknown History duloxetine 30 mg capsule,delayed 90 mg PO BEDTIME 03/01/20 08/07/20 Unknown History release flu vacc [id number] 6mos up(PF) ml IM 03/01/20 08/07/20 Unknown History fluticasone propionate 50 2 spray INTRANASAL DAILY 03/01/20 08/07/20 Unknown History mcg/actuation nasal spray,suspension lorazepam 0.5 mg tablet 0.5 mg PO BID PRN 03/01/20 09/11/20 Unknown History methylprednisolone 4 mg tablets in mg PO 03/01/20 08/07/20 Unknown History a dose pack albuterol sulfate 90 mcg/actuation 2 inh INHALATION Q6-8H PRN g 01/17/21 Unknown History aerosol inhaler azithromycin 250 mg tablet 250 mg PO DIRECTED 01/17/21 Unknown History bupropion HCl 150 mg tablet,12 hr 150 mg PO BID 01/17/21 Unknown History sustained-release lamotrigine 200 mg tablet 200 mg PO DAILY 01/17/21 Unknown History tadalafil 20 mg tablet 20 mg PO DAILY PRN tab 01/17/21 Unknown History Exam Exam Date and Time: April 16, 2021 0722 Height,Weight and Vital Signs: Height 5 ft 9 in Weight 91.626 kg Last Vital Signs Temp 96.8 F 04/16/21 06:46 Pulse 87 04/16/21 06:46 Resp 16 04/16/21 06:46 BP 117/79 04/16/21 06:46 Pulse Ox 94 04/16/21 06:46 Airway Mallampati Class: IV TM Dist: >3cm Neck ROM: Full Heart: RRR Lungs: CTA Assessment and Plan Final Anesthetic Review Family History of Problems with Anesthesia: No History of Problems with Anesthesia: No ASA Class: II Final Preanesthetic Review: No Changes in Pt Med Stat Patient Risk: Low Procedure Risk: Low Anesthetic Plan Anesthetic Plan: MAC: Disposition: Standard PACU
[2021-04-16 08:21] VITALS: BP 106/54; PULSE 90; RESP 16; TEMP 36.4; O2SAT 96
--- NOTE | 2021-04-16 08:24 | PM.OP ---
Brief Operative Note Date of Service: 04/16/21 Pre-op diagnosis: Screening Post-op diagnosis: other (Colon polyp) Procedure: Colonoscopy to the cecum and TI with bx/removal of polyp Surgeon: Fermin Lopez Anesthesia: MAC Was an Second Vp Hr Assessment used for this Procedure?: No Estimated blood loss (mL): 2.0 Pathology: other (A. Polyp at 20cm) Condition: stable Disposition: PACU
[2021-04-16 08:36] VITALS: BP 121/49; PULSE 84; RESP 16; TEMP 36.4; O2SAT 95
--- NOTE | 2021-04-16 09:05 | OP_ITS ---
SURGEON: Fermin Lopez MD INDICATIONS: The patient presents for evaluation of personal history of colon polyps and colorectal cancer screening. Full consent has been obtained from him for this, including risks of bleeding and perforation. PREOPERATIVE DIAGNOSIS: POSTOPERATIVE DIAGNOSIS: PROCEDURE PERFORMED: Colonoscopy to the cecum and terminal ileum with biopsy and removal of polyp. ESTIMATED BLOOD LOSS: COMPLICATIONS: ANESTHESIA: Medication used, monitored anesthesia care. ASSISTANTS: SPECIMENS: PREOPERATIVE DIAGNOSES: Colorectal cancer screening and personal history of colon polyps. POSTOPERATIVE DIAGNOSES: Colorectal cancer screening and personal history of colon polyps, colon polyp, mild diverticulosis, and internal and external hemorrhoids. DESCRIPTION OF PROCEDURE: The patient was placed in the left lateral decubitus position. The digital rectal exam revealed a small external hemorrhoid. The Olympus video pediatric colonoscope was entered into the rectum and advanced easily to the cecum. Once in the cecum, I did identify normal-appearing cecal pouch with appendiceal orifice and a normal-appearing ileocecal valve. The terminal ileum was cannulated and appeared normal. Scope was withdrawn back in the colon. The entire cecum and ileocecal valve appeared normal. The scope was slowly withdrawn, assessing all mucosal surfaces carefully. Preparation was excellent. At 20 cm was a flat approximately 5 or 6 mm probable hyperplastic polyp, which was biopsied and completely removed with the cold biopsy forceps. I did not visualize any other polyps, colitis, nor angiodysplasia. There was a mild amount of sigmoid diverticulosis. In the rectum, scope was retroflexed visualizing small internal hemorrhoids, but no other pathology. The rectal mucosa appeared normal. The scope was straightened and withdrawn from the patient. He tolerated the procedure well, and was returned to the recovery area in stable condition. IMPRESSION: 1. Small colon polyp, status post biopsy removal. 2. Mild diverticulosis. 3. Internal and external hemorrhoids. PLAN: The results of the biopsies will be checked. I would recommend a repeat colonoscopy in 5 years for further surveillance. He will otherwise see me on a p.r.n. basis. MD MIKALA Walton/PITER / [id number] MTDD
--- NOTE | 2021-04-16 13:35 | HO.POSTANES ---
Post Anesthesia Evaluation Post Anesthesia Evaluation Vital Signs: Vital Signs Temp Pulse Resp BP Pulse Ox 04/16/21 08:36 97.6 F 84 16 121/49 L 95 04/16/21 08:21 97.6 F 90 16 106/54 L 96 04/16/21 06:46 96.8 F 87 16 117/79 94 Anesthesia: Monitored Mental Status: Awake Pain Control: Satisfactory Nausea/Vomiting: None Hydration: Adequate Anesthesia-Related Issues: No Anes. Related Issues
== END 2021-04-16 09:35 | disposition home or self-care (01) ==
PROVIDERS: PCP Internal Medicine; Visit Provider Internal Medicine
PROC: 0DJD8ZZ Inspection of Lower Intestinal Tract, Via Natural or Artificial Opening Endoscopic (ICD-10-PCS; CPT 45378; principal; 2021-04-16 07:30)
DX: Z12.11 Encounter for screening for malignant neoplasm of colon (principal); Z86.010 Personal history of colon polyps; K63.5 Polyp of colon; K57.30 Diverticulosis of large intestine without perforation or abscess without bleeding; K64.8 Other hemorrhoids; K64.4 Residual hemorrhoidal skin tags; K21.9 Gastro-esophageal reflux disease without esophagitis; J45.909 Unspecified asthma, uncomplicated; F32.9 Major depressive disorder, single episode, unspecified; Z79.899 Other long term (current) drug therapy; Z87.891 Personal history of nicotine dependence
CPT/HCPCS: 45380; 88305

== ENCOUNTER 2021-04-20 10:52 | Outpatient (REF) | payer OTHER, SELFPAY ==
--- NOTE | ~2021-04-20 | XR_ITS ---
EXAMINATION: XR SHOULDER, RIGHT CLINICAL INFORMATION: Muscle strain COMPARISON: None TECHNIQUE: Three views of the right shoulder. XR/XR shoulder RT min 2V FINDINGS/IMPRESSION: No acute fracture or dislocation. Moderate degenerative changes of the acromioclavicular joint with loss of joint space and degenerative spurring. Glenohumeral joint space is maintained. Soft tissues are unremarkable.
== END 2021-04-20 10:53 | disposition home or self-care (01) ==
LOC: HO.HMGCX 10:52
PROVIDERS: PCP Internal Medicine; Visit Provider Internal Medicine
DX: S46.911D Strain of unspecified muscle, fascia and tendon at shoulder and upper arm level, right arm, subsequent encounter (principal)
CPT/HCPCS: 73030

== ENCOUNTER 2021-05-17 08:04 | Outpatient (REF) | payer OTHER, SELFPAY ==
--- NOTE | ~2021-05-17 | XR_ITS ---
EXAMINATION: XR SINUSES CLINICAL INFORMATION: Right-sided pain. COMPARISON: None. TECHNIQUE: 4 views submitted. FINDINGS: The maxillary sphenoid and ethmoid sinuses are grossly clear. Cannot exclude some mild thickening in the frontal sinuses. There is certainly no air-fluid level here. XR/XR sinus min 3V IMPRESSION: Cannot exclude some frontal sinus mucosal thickening. Sinuses are otherwise grossly clear. No air-fluid level.
== END 2021-05-17 08:05 | disposition home or self-care (01) ==
LOC: HO.XRAY 08:04
PROVIDERS: PCP Internal Medicine; Visit Provider Otolaryngology
DX: J32.9 Chronic sinusitis, unspecified (principal)
CPT/HCPCS: 70220

== ENCOUNTER → 2021-05-29 13:14 | Outpatient (BNVA) | payer OTHER, SELFPAY | PROVIDERS: PCP Internal Medicine; Visit Provider Urology | DX: I86.1 Scrotal varices (principal); N41.1 Chronic prostatitis; N40.1 Benign prostatic hyperplasia with lower urinary tract symptoms; N13.8 Other obstructive and reflux uropathy; R35.1 Nocturia | CPT/HCPCS: 51798; 99212 ==

== ENCOUNTER 2022-04-02 10:09 | Outpatient (REF) | payer OTHER, SELFPAY | END 2022-04-02 10:10 | disposition home or self-care (01) | LOC: HO.LAB 10:09 | PROVIDERS: Visit Provider Nurse Practitioner Family | DX: N50.812 Left testicular pain (principal) | CPT/HCPCS: 87086 ==

== ENCOUNTER 2022-04-02 10:35 | Outpatient (REF) | payer OTHER, SELFPAY ==
--- NOTE | ~2022-04-02 | US_ITS ---
EXAMINATION: US SCROTUM CLINICAL INFORMATION: Left testicle pain. COMPARISON: Previous exams from 2019 and 2020 TECHNIQUE: A sonogram of the scrotum was performed assessing estrada-scale appearance and color Doppler flow. Spectral Doppler analysis of the arterial and venous flow were performed in the testes bilaterally. FINDINGS: RIGHT: Right testicle measures 4.6 x 2.1 x 3 cm, volume 15 mL. No focal testicular parenchymal lesions are visualized. Spectral Doppler analysis of the arterial and venous flow is normal in the right testis. Right epididymal head is normal in size. Small right epididymal head cysts measuring 2 x 3 mm. Small right hydrocele. Right varicocele. Right epididymal Doppler flow is normal. LEFT: Left testicle measures 2.9 x 1.6 x 2 cm, volume 5 mL. Echotexture is slightly heterogeneous. No focal testicular parenchymal lesions are visualized. Spectral Doppler analysis of the arterial and venous flow is normal in the left testis. Left epididymal head is normal in size. There is a 2 mm left epididymal head cyst. Small left hydrocele. Left varicocele. Left epididymal Doppler flow is normal. US/US scrotum IMPRESSION: No evidence of torsion. The left testicle is smaller than the right and slightly heterogeneous in echotexture. No focal testicular lesion seen. Bilateral small hydroceles. Bilateral varicoceles. Small bilateral head cysts.
== END 2022-04-02 10:36 | disposition home or self-care (01) ==
LOC: HO.US 10:35
PROVIDERS: Visit Provider Nurse Practitioner Family
DX: N50.812 Left testicular pain (principal)
CPT/HCPCS: 76870

== ENCOUNTER 2022-04-25 10:59 | Outpatient (REF) | payer OTHER, SELFPAY ==
[2022-04-25 11:21] LABS: Mean Corpuscular HGB Conc 33.3 g/dl (31.0-36.0); Mean Corpuscular Hemoglobin 30.4 pg (27.0-33.0); Mean Corpuscular Volume 91.1 fL (80.0-98.0); Mean Platelet Volume 9.4 fL (9.4-12.4); Platelet Count 334 X10*3/uL (160-400); Red Blood Count 4.94 X10*6/uL (4.60-5.80); Red Cell Distribution Width 11.2 % (11.0-16.0); White Blood Count 6.1 X10*3/uL (4.8-10.8)
[2022-04-25 12:32] LABS: Alanine Aminotransferase 23 U/L (0-40); Albumin Level 4.5 g/dL (3.5-5.0); Alkaline Phosphatase 78 U/L (39-117); Anion Gap 11 (12-20); Aspartate Amino Transferase 17 U/L (5-37); Bilirubin Direct 0.2 mg/dL (0.0-0.5); Bilirubin Total 0.7 mg/dL (0.0-1.0); Blood Urea Nitrogen 13 mg/dL (9-16); Calcium 9.9 mg/dL (8.4-10.2); Carbon Dioxide 30 mmol/L (22-29); Chloride 103 mmol/L (96-108); Cholesterol 197 mg/dL; Estimated Glomerular Filt Rate > 60; Glucose Random 109 mg/dL (60-115); HDL Cholesterol 44 mg/dL; LDL Cholesterol Calculated 133 mg/dl; Potassium 4.8 mmol/L (3.3-5.1); Sodium 139 mmol/L (135-145); Thyroid Stimulating Hormone 1.15 uIU/mL (0.32-4.0); Triglycerides 103 mg/dL
[2022-04-26 16:36] LABS: Prostate Specific Antigen Scr 0.66 ng/mL (<0.05-4.0)
== END 2022-04-25 11:00 | disposition home or self-care (01) ==
LOC: HO.LAB 10:59
PROVIDERS: PCP Internal Medicine; Visit Provider Internal Medicine
DX: Z12.5 Encounter for screening for malignant neoplasm of prostate (principal); E78.00 Pure hypercholesterolemia, unspecified; N41.9 Inflammatory disease of prostate, unspecified
CPT/HCPCS: 36415; 80048; 80061; 80076; 84153; 84443; 85027

== ENCOUNTER 2022-05-06 14:13 | Outpatient (REF) | payer OTHER, SELFPAY ==
--- NOTE | ~2022-05-06 | XR_ITS ---
EXAMINATION: XR CHEST CLINICAL INFORMATION: Dyspnea COMPARISON: 05/01/2017 TECHNIQUE: 2 views of the chest were obtained. FINDINGS: The cardiomediastinal silhouette is within normal limits. The lungs are well expanded. There is no focal consolidation, edema, or effusion. Mild bronchial wall thickening present. No pneumothorax. Multilevel dorsal spine degeneration. XR/XR chest 2V IMPRESSION: Bronchial wall thickening can be seen with a small airway process such as asthma or atypical/viral infections. No focal consolidation.
== END 2022-05-06 14:14 | disposition home or self-care (01) ==
LOC: HO.XRAY 14:13
PROVIDERS: PCP Internal Medicine; Visit Provider Internal Medicine
DX: J45.909 Unspecified asthma, uncomplicated (principal); R06.00 Dyspnea, unspecified
CPT/HCPCS: 71046; 99202

== ENCOUNTER 2022-05-17 09:00 | Outpatient (REF) | payer OTHER, SELFPAY ==
--- NOTE | 2022-05-17 12:02 | PFT_ITS ---
Forced vital capacity is 95%, FEV1 101%, FEV1/FVC ratio is 80. [id number] is 124% and MVV 90%. Post bronchodilator therapy, there is no significant change. Total lung capacity 97%. Residual volume 103%. Diffusion capacity 103%. CONCLUSION: Normal pulmonary function test, and there is no evidence of obstructive or restrictive pulmonary disorder. MD LISSY Villarreal/PITER / [phone]
== END 2022-05-17 09:01 | disposition home or self-care (01) ==
LOC: HO.RESP 09:00
PROVIDERS: PCP Internal Medicine; Visit Provider Internal Medicine
DX: J45.909 Unspecified asthma, uncomplicated (principal); R06.00 Dyspnea, unspecified
CPT/HCPCS: 94060; 94727; 94729

== ENCOUNTER 2022-05-18 20:06 | Emergency (ER) | payer OTHER, SELFPAY ==
--- NOTE | ~2022-05-18 | CT_ITS ---
EXAMINATION: CT HEAD WITHOUT CONTRAST CLINICAL INFORMATION: Head pain. Status post fall. COMPARISON: None TECHNIQUE: Contiguous axial imaging was performed from the skull base to vertex without intravenous administration of contrast. This CT examination was performed using dose optimization techniques as appropriate, variously including the following: *Automated exposure control *Adjustment of mA and/or kV according to patient size (this includes techniques or standardized protocols for targeted exams where dose is matched to indication/reason for exam; i.e. extremities or head) *Use of iterative reconstruction technique DLP: 706.92 mGy-cm FINDINGS: There is no evidence of acute intracranial hemorrhage or territorial infarction. No abnormal mass effect or midline shift is seen. Alfonso to white matter differentiation is well preserved. No extra-axial fluid collections are identified. No significant volume loss. No hydrocephalus. There is no abnormal attenuation within the brain parenchyma. The osseous structures and soft tissues are normal. The mastoid air cells and visualized portions of the paranasal sinuses are well aerated. CT/CT head/brain wo IV con IMPRESSION: No acute intracranial pathology.
[2022-05-18 20:17] VITALS: BP 120/76; PULSE 90; RESP 18; TEMP 36.4; O2SAT 95; BMI 28.8
[2022-05-18 20:22] VITALS: BP 130/60; PULSE 100; O2SAT 96
--- NOTE | 2022-05-18 20:28 | ECG_ITS ---
Test Reason : SYNCOPE Blood Pressure : / mmHG Vent. Rate : 091 BPM Atrial Rate : 091 BPM P-R Int : 132 ms QRS Dur : 074 ms QT Int : 340 ms P-R-T Axes : 047 036 058 degrees QTc Int : 418 ms Normal sinus rhythm Normal ECG When compared with ECG of 09-MAY-2017 00:46, No significant change was found Referred By: Juan Roberts Electronically Signed By:KAR FAN MD
[2022-05-18 21:22] LABS: MANUAL DIFF FLAG NO
[2022-05-18 21:24] LABS: Basophils Percent Auto 0.2 % (0-2); Eosinophils Absolute Auto 0.1 X10*3/uL (0.0-0.4); Eosinophils Percent Auto 0.9 % (0-4); Hematocrit 39.6 % (42.0-52.0); Hemoglobin 13.6 g/dl (14.0-18.0); Imm Gran Abs Auto 0.02 X10*3/uL (0.00-0.03); Imm Gran Pct Auto 0.3 % (0.0-0.4); Lymphocytes Absolute Auto 0.4 X10*3/uL (1.2-4.9); Lymphocytes Percent Auto 6.3 % (20-40); Mean Corpuscular HGB Conc 34.3 g/dl (31.0-36.0); Mean Corpuscular Hemoglobin 30.4 pg (27.0-33.0); Mean Corpuscular Volume 88.4 fL (80.0-98.0); Monocytes Absolute Auto 0.5 X10*3/uL (0.1-1.2); Monocytes Percent Auto 7.2 % (2-11); Neutrophils Absolute Auto 5.5 x10*3/uL (2.0-8.3); Neutrophils Percent Auto 85.1 % (45-73); Platelet Count 253 X10*3/uL (160-400); Red Blood Count 4.48 X10*6/uL (4.60-5.80); Red Cell Distribution Width 11.3 % (11.0-16.0); White Blood Count 6.5 X10*3/uL (4.8-10.8)
--- NOTE | 2022-05-18 21:38 | ED_ITS ---
HPI - General Adult General Chief complaint: Fall Stated complaint: anxiety Time Seen by Provider: 05/18/22 20:17 Source: patient Mode of arrival: EMS Limitations: no limitations History of Present Illness HPI narrative: Patient with History of anxiety/panic attacks while at rest room waiting for the food got anxious after having small amount of soup went to the bathroom hyperventilating started vomiting and passed out and fell hitting his head to the ground patient vomited 2 times after arrival patient been feeling much better now also has small abrasion on the right knee. No chest pain or palpitation patient does get panic attacks very often but never passed out like this Related Data Home Medications Medication Instructions Recorded Confirmed betamethasone dipropionate 0.05 % applic topical DAILY 03/01/20 04/02/22 topical cream clobetasol 0.05 % topical ointment 1 applic topical BID 03/01/20 04/02/22 flu vacc [id number] 6mos up(PF) 60 ml IM 03/01/20 04/02/22 mcg(15 mcgx4)/0.5 mL IM syringe fluticasone propionate 50 2 spray intranasal DAILY 03/01/20 04/02/22 mcg/actuation nasal spray,suspension lorazepam 0.5 mg tablet 0.5 mg PO BID PRN anxiety 03/01/20 04/02/22 lamotrigine 200 mg tablet 200 mg PO DAILY 01/17/21 04/02/22 tadalafil 20 mg tablet 20 mg PO DAILY PRN 01/17/21 04/02/22 bupropion HCl 100 mg tablet,12 hr 100 mg PO BID 05/29/21 04/02/22 sustained-release budesonide-formoterol HFA 160 2 puff inhalation BID 02/19/22 04/02/22 mcg-4.5 mcg/actuation aerosol inhaler (Symbicort) [id number] 50 1 cap PO Q12H PRN 05/06/22 mg-325 mg-40 mg capsule Previous Rx's Medication Instructions Recorded tamsulosin 0.4 mg capsule (Flomax) 0.4 mg PO DAILY #90 caps 04/26/22 meloxicam 15 mg tablet 15 mg PO DAILY 30 days #30 tabs 05/10/22 prednisone 20 mg tablet 20 mg PO DAILY 5 days #5 tabs 05/10/22 sulfamethoxazole 800 1 tab PO BID 14 days #28 tabs 05/10/22 mg-trimethoprim 160 mg tablet (Bactrim DS) albuterol sulfate 90 mcg/actuation 2 inh inhalation Q6-8H PRN 05/13/22 aerosol inhaler shortness of breath or wheezing 1 month #8.5 grams Allergies Allergy/AdvReac Type Severity Reaction Status Date / Time levofloxacin Allergy Severe Difficulty Verified 05/10/22 11:08 Breathing Review of Systems Review of Systems: Yes all other systems are reviewed and are negative [facility] Past Medical History Medical History Allergic rhinitis Asthma Chronic prostatitis Dyspnea Eczema craquele Erectile dysfunction due to arterial insufficiency History of varicocele Major depression Nocturia Varicocele present on ultrasound of scrotum Surgical History H/O colonoscopy Hx of sinus surgery S/P scrotal varicocelectomy Family History Family History Mother No problems noted. Father No problems noted. Social History Social History Alcohol intake: never Patient Tobacco Use Status: Former Tobacco user Tobacco use type: Cigarette Smoked in Last 30 Days: No e-Cigarette/Vaping Use: Never Used Use of substances other than those prescribed or required for medical reasons: No Advance Directives: No Advance Directives Information Provided: No service: No Current occupational status: retired Current occupation: [employer] at [employer] Cognitive needs: No Hearing needs: No Vision needs: No Physical Exam ED Vital Signs: Vital Signs - 24 hr 05/18/22 20:17 05/18/22 22:55 05/18/22 23:08 Temperature 97.6 F 98.3 F Pulse Rate 90 91 Respiratory Rate 18 16 16 Blood Pressure 120/76 97/67 Pulse Oximetry 95 97 Oxygen Delivery Method Room Air Room Air BMI result Body Mass Index 28.8 Appearance: Alert. Oriented X3. No acute distress. Anxious Eyes: PERRLA, No Nystagmus ENT: Pharynx normal. Oral Mucosa moist Neck: Normal inspection. Neck supple. CVS: Normal heart rate and rhythm. Pulses normal. Respiratory: No respiratory distress. Equal air entry bilateral, no wheezing/rales/rhonchi Abdomen: Soft and nontender. Bowel sounds are present, no mass palpable, no CVA tenderness Skin: Skin warm and dry. Normal skin color. Normal skin turgor. Extremities: No lower extremity edema. No calf tenderness right knee superficial abrasion good range of movement Neuro: Oriented X 3. No motor deficit. No sensory deficit.No cerebellar signs , cranial nerves II-XII intact Medications Administered Discontinued Medications Generic Name Dose Route Start Last Admin Trade Name Freq PRN Reason Stop Dose Admin Bacitracin 1 appl 05/18/22 22:44 05/18/22 23:08 Bacitracin Oint 14 Gm Tube TOPICAL 05/18/22 22:45 1 appl ONCE ONE Administration Protocol Medical Decision Making Medical Decision Making [facility] Narrative: Patient with panic attack with vasovagal syncope workup negative feeling much better will discharge patient home Differential Diagnosis Cardiac arrhythmias/ACS/vasovagal/panic attack Lab Data [facility] Lab Attestation statement: I reviewed the patient's lab results. 05/18/22 21:18 05/18/22 21:18 Labs: Lab Results 05/18/22 05/18/22 05/18/22 Range/Units 21:18 21:18 21:18 WBC 6.5 (4.8-10.8) X10*3/uL RBC 4.48 L (4.60-5.80) X10*6/uL Hgb 13.6 L (14.0-18.0) g/dl Hct 39.6 L (42.0-52.0) % MCV 88.4 (80.0-98.0) fL MCH 30.4 (27.0-33.0) pg MCHC 34.3 (31.0-36.0) g/dl RDW 11.3 (11.0-16.0) % Plt Count 253 (160-400) X10*3/uL MPV 9.0 L (9.4-12.4) fL Immature Gran % (Auto) 0.3 (0.0-0.4) % Neut % (Auto) 85.1 H (45-73) % Lymph % (Auto) 6.3 L (20-40) % [place] % (Auto) 7.2 (2-11) % Eos % (Auto) 0.9 (0-4) % Baso % (Auto) 0.2 (0-2) % Lymph # (Auto) 0.4 L (1.2-4.9) X10*3/uL [place] # (Auto) 0.5 (0.1-1.2) X10*3/uL Eos # (Auto) 0.1 (0.0-0.4) X10*3/uL Baso # (Auto) 0.0 (0.0-0.2) X10*3/uL Abs Immat Gran (auto) 0.02 (0.00-0.03) X10*3/uL Absolute Neuts (auto) 5.5 (2.0-8.3) x10*3/uL Absolute Nucleated RBC 0.000 (0.0-0.012) X10*3/uL Nucleated RBC % (auto) 0.0 (0.0-0.2) /100WBC Sodium 136 (135-145) mmol/L Potassium 4.4 (3.3-5.1) mmol/L Chloride 100 (96-108) mmol/L Carbon Dioxide 27 (22-29) mmol/L Anion Gap 13 (12-20) BUN 18 H (9-16) mg/dL Creatinine 1.10 (0.5-1.4) mg/dL Estim Creat Clear Calc 79.5 Estimated GFR > 60 Random Glucose 128 H (60-115) mg/dL Calcium 9.3 D (8.4-10.2) mg/dL Total Bilirubin 0.8 (0.0-1.0) mg/dL AST 18 (5-37) U/L ALT 24 (0-40) U/L Alkaline Phosphatase 56 (39-117) U/L Troponin I High Sens < 3.5 (<3.5-35.0) ng/L Total Protein 6.0 L (6.5-8.0) g/dL Albumin 4.0 (3.5-5.0) g/dL Independent Interpretation I performed an independent interpretation of an: EKG Interpretation: Normal sinus rhythm heart rate 91 beats per minute normal axis normal interval no acute ST changes no acute ischemia Discharge Plan Discharge Clinical Impression: Panic attack, Vasovagal syncope Patient Disposition: Home, Self-Care Instructions: Syncope (ED), Panic Attack (ED) Additional Instructions: Continue to take your lorazepam for anxiety Follow-up with PCP as needed Prescriptions: No Action tamsulosin [Flomax] 0.4 mg capsule 0.4 mg PO DAILY Qty: 90 1RF prednisone 20 mg tablet 20 mg PO DAILY 5 Days Qty: 5 0RF meloxicam 15 mg tablet 15 mg PO DAILY 30 Days Qty: 30 0RF sulfamethoxazole-trimethoprim [Bactrim DS] 800-160 mg tablet 1 tab PO BID 14 Days Qty: 28 0RF albuterol sulfate 90 mcg/actuation HFA aerosol inhaler 2 inh inhalation Q6-8H PRN (Reason: shortness of breath or wheezing) 30 Days Qty: 8.5 0RF clobetasol 0.05 % ointment 1 applic topical BID fluticasone propionate 50 mcg/actuation spray,suspension 2 spray intranasal DAILY flu vacc [id number] 6mos up(PF) 60 mcg (15 mcg x 4)/0.5 mL syringe IM betamethasone dipropionate 0.05 % cream topical DAILY lorazepam 0.5 mg tablet 0.5 mg PO BID PRN (Reason: anxiety) tadalafil 20 mg tablet 20 mg PO DAILY PRN budesonide-formoterol [Symbicort] 160-4.5 mcg/actuation HFA aerosol inhaler 2 puff inhalation BID bupropion HCl 100 mg tablet sustained-release 12 hr 100 mg PO BID lamotrigine 200 mg tablet 200 mg PO DAILY [id number]-jvqiqvq-iimwehsx 50-325-40 mg capsule 1 cap PO Q12H PRN Interventions: ED Discharge Assessment Last Done: 05/18/22 23:09 Discharge Date/Time: 05/18/22 23:11
[2022-05-18 21:44] LABS: Alanine Aminotransferase 24 U/L (0-40); Alkaline Phosphatase 56 U/L (39-117); Anion Gap 13 (12-20); Aspartate Amino Transferase 18 U/L (5-37); Bilirubin Total 0.8 mg/dL (0.0-1.0); Blood Urea Nitrogen 18 mg/dL (9-16); Calcium 9.3 mg/dL (8.4-10.2); Carbon Dioxide 27 mmol/L (22-29); Chloride 100 mmol/L (96-108); Creatinine Clr Calc Pharmacy 79.5; Estimated Glomerular Filt Rate > 60; Glucose Random 128 mg/dL (60-115); Potassium 4.4 mmol/L (3.3-5.1); Sodium 136 mmol/L (135-145)
[2022-05-18 21:52] LABS: Troponin-I High Sensitivity < 3.5 ng/L (<3.5-35.0)
[2022-05-18 22:55] VITALS: BP 97/67; PULSE 91; RESP 16; TEMP 36.8
[2022-05-18 23:08] VITALS: RESP 16; O2SAT 97
[2022-05-18] MEDS: Bacitracin Oint 14 GM TUBE 1 APPL TOPICAL (23:08)
--- NOTE | 2022-05-18 23:09 | PC.NURSE ---
Pt HUMPHREYS x4 and ambulatory. Rn applied bacitracin to L knee per Mar. Pt verbalized understanding of discharge instructions.
== END 2022-05-18 23:11 | disposition home or self-care (01) ==
PROVIDERS: Emergency Provider Internal Medicine; PCP Internal Medicine
DX: R55 Syncope and collapse (principal); F41.9 Anxiety disorder, unspecified; Z79.899 Other long term (current) drug therapy; Z87.891 Personal history of nicotine dependence
CPT/HCPCS: 36415; 70450; 80053; 84484; 85025; 93005; 99284

== ENCOUNTER 2022-05-20 07:13 | Outpatient (REF) | payer OTHER, SELFPAY ==
[2022-05-20 09:00] LABS: Prostate Specific Antigen 0.62 ng/mL (<0.05-4.0)
== END 2022-05-20 07:14 | disposition home or self-care (01) ==
LOC: HO.LAB 07:13
PROVIDERS: PCP Internal Medicine; Visit Provider Urology
DX: Z12.5 Encounter for screening for malignant neoplasm of prostate (principal); N40.1 Benign prostatic hyperplasia with lower urinary tract symptoms; N41.9 Inflammatory disease of prostate, unspecified; N13.8 Other obstructive and reflux uropathy
CPT/HCPCS: 36415; 84153

== ENCOUNTER → 2022-05-31 08:47 | Outpatient (BNVA) | payer OTHER, SELFPAY | PROVIDERS: PCP Internal Medicine; Visit Provider Urology | DX: N41.1 Chronic prostatitis (principal); N40.1 Benign prostatic hyperplasia with lower urinary tract symptoms; R35.0 Frequency of micturition; N52.01 Erectile dysfunction due to arterial insufficiency; Z79.899 Other long term (current) drug therapy | CPT/HCPCS: 99212 ==

== ENCOUNTER → 2022-06-03 10:32 | Outpatient (BNVA) | payer OTHER, SELFPAY | PROVIDERS: PCP Internal Medicine; Visit Provider Internal Medicine | DX: J44.9 Chronic obstructive pulmonary disease, unspecified (principal); J30.9 Allergic rhinitis, unspecified; F41.9 Anxiety disorder, unspecified; Z79.899 Other long term (current) drug therapy | CPT/HCPCS: 99212 ==

== ENCOUNTER 2022-06-14 08:13 | Emergency (ER) | payer OTHER, SELFPAY ==
--- NOTE | ~2022-06-14 | XR_ITS ---
EXAMINATION: XR CHEST CLINICAL INFORMATION: Shortness of breath. COMPARISON: 05/06/2022 chest radiographs. TECHNIQUE: Frontal view of the chest was obtained. FINDINGS: No significant abnormality is noted involving the heart, lungs, mediastinum, bony thorax or soft tissues. XR/XR chest 1V IMPRESSION: No acute cardiopulmonary process.
[2022-06-14 08:34] VITALS: BP 121/85; PULSE 90; RESP 18; TEMP 35.8; O2SAT 98; BMI 28.8
--- NOTE | 2022-06-14 08:34 | ECG_ITS ---
Test Reason : CHEST TIGHTNESS Blood Pressure : / mmHG Vent. Rate : 079 BPM Atrial Rate : 079 BPM P-R Int : 140 ms QRS Dur : 066 ms QT Int : 358 ms P-R-T Axes : 060 037 063 degrees QTc Int : 410 ms Normal sinus rhythm Normal ECG When compared with ECG of 18-MAY-2022 20:51, No significant change was found Referred By: Generic ED Physician Electronically Signed By:Cristobal Gastelum
--- NOTE | 2022-06-14 09:38 | ED_ITS ---
HPI - Asthma General Chief Complaint: Asthma Stated Complaint: Asthma Time Seen by Provider: 06/14/22 09:34 Source: patient Mode of arrival: ambulatory Limitations: no limitations History of Present Illness HPI Narrative: 61-year-old male with a history of asthma, anxiety, depression who presents with complaints of shortness of breath the last 2 weeks with dry cough. No fevers, chills, palpitations, dizziness, leg swelling or leg pain. Patient reports today he felt more short of breath and had some left-sided chest discomfort while driving. This was described as a aching pain and is now resolved. Patient reports about a month ago he was seen by Dr. Trivedi his firearms model maker. He tells me that his pulmonary function tests were good and so they discontinued his Symbicort and albuterol. Approximately 4-5 days later he started to have symptoms of cough and wheezing. He did restart all of his inhalers 1 week ago. He does take Symbicort and albuterol. Patient also concerned that he may have GERD and describes this as belching, discomfort in his throat like something is stuck. Takes OTC tums No recent travel or sick contact Related Data Home Medications Medication Instructions Recorded Confirmed betamethasone dipropionate 0.05 % applic topical DAILY 03/01/20 05/31/22 topical cream lamotrigine 200 mg tablet 200 mg PO DAILY 01/17/21 05/31/22 budesonide-formoterol HFA 160 2 puff inhalation BID 02/19/22 05/31/22 mcg-4.5 mcg/actuation aerosol inhaler (Symbicort) aqlhlhhowv-dqricvn-zljokrlw 50 1 cap PO Q12H PRN 05/06/22 05/31/22 mg-325 mg-40 mg capsule clobetasol 0.05 % topical cream g topical 05/31/22 05/31/22 propranolol 10 mg tablet 10 - 20 mg PO DAILY PRN panic 05/31/22 05/31/22 attack Previous Rx's Medication Instructions Recorded sulfamethoxazole 800 1 tab PO BID 14 days #28 tabs 05/10/22 mg-trimethoprim 160 mg tablet (Bactrim DS) albuterol sulfate 90 mcg/actuation 2 inh inhalation Q6-8H PRN 05/13/22 aerosol inhaler shortness of breath or wheezing 1 month #8.5 grams tadalafil 20 mg tablet 20 mg PO ONCE PRN sexual activity 05/31/22 30 days #30 tabs tadalafil 5 mg tablet 5 mg PO DAILY sexual activity 90 05/31/22 days #90 tabs terazosin 5 mg capsule 5 mg PO BEDTIME 30 days #30 caps 05/31/22 bupropion HCl 100 mg tablet,12 hr 100 mg PO BID #180 tabs 06/10/22 sustained-release omeprazole 40 mg capsule,delayed 40 mg PO DAILY #14 caps 06/14/22 release prednisone 20 mg tablet 40 mg PO DAILY #10 tabs 06/14/22 Allergies Allergy/AdvReac Type Severity Reaction Status Date / Time levofloxacin Allergy Severe Difficulty Verified 06/03/22 10:39 Breathing Review of Systems Review of Systems: Yes all other systems are reviewed and are negative Constitutional: Constitutional: Reports no additional constitutional complaints, Denies body ache(s), Denies chills, Denies fever(s), Denies headache(s) and Denies weakness Eyes: Eyes: Reports no additional eye complaints and Denies change in vision ENT: Reports system reviewed and no additional complaints, except as documented, Denies dizziness, Denies headache(s), Denies nasal congestion, Denies nasal discharge and Denies neck pain Cardiovascular: Cardiovascular: Reports no additional cardiovascular complaints, Reports chest pain, Denies leg edema and Reports dyspnea Respiratory: Respiratory: Reports no additional respiratory complaints, Reports cough, Reports dyspnea and Reports wheezing Gastrointestinal: Gastrointestinal: Reports no additional gastrointestinal complaints, Denies abdominal pain, Denies diarrhea, Denies nausea and Denies vomiting Genitourinary: Genitourinary: Denies urinary incontinence Musculoskeletal: Musculoskeletal: Reports no additional musculoskeletal complaints, Denies back pain, Denies arthralgias, Denies joint swelling, Denies neck pain, Denies numbness and Denies tingling Integumentary/Breasts: Skin/Breast: Reports system reviewed and no additional complaints, except as docu and Denies rash Neurologic: Reports system reviewed and no additional complaints, except as documented, Denies Abnormal speech present, Denies dizziness, Denies headache(s), Denies numbness, Denies tingling and Denies weakness Allergic/Immunologic: Allergic/Immunologic: Reports wheezing PMFSH Past Medical History Attestation statement: The following information was validated with the patient. Source: old records reviewed and nursing notes reviewed Medical History Allergic rhinitis Anxiety Asthma Chronic prostatitis Dyspnea Eczema craquele Erectile dysfunction due to arterial insufficiency History of varicocele Major depression Nocturia Varicocele present on ultrasound of scrotum Surgical History H/O colonoscopy Hx of sinus surgery S/P scrotal varicocelectomy Family History Family History Mother No problems noted. Father No problems noted. 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 [employer] Cognitive needs: No Hearing needs: No Vision needs: No Physical Exam Vital Signs: Vital Signs: Last Vital Signs Temp 97.9 F 06/14/22 11:37 Pulse 89 06/14/22 13:43 Resp 20 06/14/22 13:43 BP 131/87 06/14/22 11:37 Pulse Ox 98 06/14/22 13:43 O2 Del Method 06/14/22 13:43 BMI result Body Mass Index 28.8 Const: General: cooperative, healthy appearing, comfortable and no acute distress Orientation/consciousness: patient oriented x3 Limitations: no limitations HEENT: Head: Yes normal to inspection Ears: hearing grossly normal bilaterally General nose exam: Normal external nose present Face and sinus: Yes normal facial exam Mouth: Normal oral and palatal mucosa present Throat: Yes posterior oropharynx normal Eyes: General: appearance normal, both eyes and all related structures Pupils: Equal, round and reactive pupils present Neck: Neck: Yes normal visual inspection Chest: Chest palpation & inspection: normal inspection of the chest Resp: Effort & Inspection: normal respiratory effort Auscultation: wheezes (mild ) expiratory wheezes Cardio: Rate: regular rate Rhythm: regular rhythm Peripheral pulses: Peripheral pulses 2+ throughout GI: Inspection: Yes normal to inspection Palpation (GI): Soft to palpation and nontender Auscultation: normal bowel sounds Back/Spine/Pelvis: Thoracic/Lumbar Spine: thoracic and lumbar spine normal to inspection Skin: General skin exam: no rashes or lesions noted Neuro: General: patient oriented x3, no focal motor deficits and normal sensation to monofilament Cranial nerves: Yes Equal, round and reactive pupils present Cognition (Neuro): normal cognition Speech: No Abnormal speech present Gait exam (Neuro): Normal gait present Motor exam (neuro): 5/5 motor strength present throughout Extrem: General: Yes normal to inspection, Yes no pedal edema and Yes no calf tenderness Course Course Course Narrative: Viral testing is negative. A chest x-ray shows no acute finding. Troponin x2 are negative. EKG shows no ischemic changes. Patient still has some mild expiratory his saturations are normal. Likely asthma exacerbation as his inhalers were recently discontinued. Patient did restart these by himself about a week ago so I recommended continuing this. Using the albuterol as needed. Will at prednisone for several days. Patient also with some likely underlying GERD. Will give PPI for 14 days. Recommend patient follow-up with primary care. Reviewed worrisome signs and symptoms of when to return to the emergency room. Comfortable plan for discharge home. Medications Administered Discontinued Medications Generic Name Dose Route Start Last Admin Trade Name Freq PRN Reason Stop Dose Admin Albuterol Sulfate 5 mg/ 0 mg 06/14/22 09:48 06/14/22 10:21 Ipratropium [place] 0.5 mg INHALE 06/14/22 09:49 1 each ONCE ONE Administration Medical Decision Making Medical Decision Making [facility] Narrative: 61-year-old male with history of asthma here with cough and wheezing and shortness of breath over the last 2 weeks with some chest discomfort and increasing shortness of breath today while driving prompting him to seek care in the emergency room. Chest pain now resolved. Patient reports a month ago all of his asthma medications were discontinued by his firearms model maker as they felt that he was doing well. The patient reports he did resume his Symbicort and albuterol about 1 week ago but having continued symptoms. Also complaining of GERD symptoms described as belching, sore throat and things get stuck Will obtain labs, EKG, chest x-ray, viral testing Differential Diagnosis Differential Diagnoses: The differential diagnosis associated with the pre sentation includes Asthma exacerbation Less likely PE, ACS -perc score 0 Lab Data [facility] Lab Attestation statement: I reviewed the patient's lab results. 06/14/22 10:07 06/14/22 10:07 Labs: Lab Results 06/14/22 06/14/22 06/14/22 Range/Units 10:07 10:07 10:07 WBC 5.0 (4.8-10.8) X10*3/uL RBC 4.63 (4.60-5.80) X10*6/uL Hgb 14.2 (14.0-18.0) g/dl Hct 41.6 L (42.0-52.0) % MCV 89.8 (80.0-98.0) fL MCH 30.7 (27.0-33.0) pg MCHC 34.1 (31.0-36.0) g/dl RDW 11.5 (11.0-16.0) % Plt Count 276 (160-400) X10*3/uL MPV 9.0 L (9.4-12.4) fL Immature Gran % (Auto) 0.2 (0.0-0.4) % Neut % (Auto) 60.0 (45-73) % Lymph % (Auto) 26.6 (20-40) % [place] % (Auto) 10.8 (2-11) % Eos % (Auto) 1.6 (0-4) % Baso % (Auto) 0.8 (0-2) % Lymph # (Auto) 1.3 (1.2-4.9) X10*3/uL [place] # (Auto) 0.5 (0.1-1.2) X10*3/uL Eos # (Auto) 0.1 (0.0-0.4) X10*3/uL Baso # (Auto) 0.0 (0.0-0.2) X10*3/uL Abs Immat Gran (auto) 0.01 (0.00-0.03) X10*3/uL Absolute Neuts (auto) 3.0 (2.0-8.3) x10*3/uL Absolute Nucleated RBC 0.000 (0.0-0.012) X10*3/uL Nucleated RBC % (auto) 0.0 (0.0-0.2) /100WBC PT 11.7 (10.0-13.1) SEC INR 1.0 (0.9-1.1) Sodium 140 (135-145) mmol/L Potassium 4.4 (3.3-5.1) mmol/L Chloride 106 (96-108) mmol/L Carbon Dioxide 25 (22-29) mmol/L Anion Gap 13 (12-20) BUN 19 H (9-16) mg/dL Creatinine 0.80 (0.5-1.4) mg/dL Estim Creat Clear Calc 109.4 Estimated GFR > 60 Random Glucose 108 (60-115) mg/dL Calcium 9.3 (8.4-10.2) mg/dL Total Bilirubin 0.6 (0.0-1.0) mg/dL Direct Bilirubin 0.2 (0.0-0.5) mg/dL AST 15 (5-37) U/L ALT 17 (0-40) U/L Alkaline Phosphatase 88 (39-117) U/L Troponin I High Sens (<3.5-35.0) ng/L B-Natriuretic Peptide (<100) pg/mL Total Protein 6.6 (6.5-8.0) g/dL Albumin 4.4 (3.5-5.0) g/dL Influenza Type A (PCR) (Negative) Influenza Type B (PCR) (Negative) RSV RNA Qual (PCR) (Negative) SARS-CoV-2 RNA (RT-PCR) (Negative) 06/14/22 06/14/22 06/14/22 Range/Units 10:07 10:07 10:07 WBC (4.8-10.8) X10*3/uL RBC (4.60-5.80) X10*6/uL Hgb (14.0-18.0) g/dl Hct (42.0-52.0) % MCV (80.0-98.0) fL MCH (27.0-33.0) pg MCHC (31.0-36.0) g/dl RDW (11.0-16.0) % Plt Count (160-400) X10*3/uL MPV (9.4-12.4) fL Immature Gran % (Auto) (0.0-0.4) % Neut % (Auto) (45-73) % Lymph % (Auto) (20-40) % [place] % (Auto) (2-11) % Eos % (Auto) (0-4) % Baso % (Auto) (0-2) % Lymph # (Auto) (1.2-4.9) X10*3/uL [place] # (Auto) (0.1-1.2) X10*3/uL Eos # (Auto) (0.0-0.4) X10*3/uL Baso # (Auto) (0.0-0.2) X10*3/uL Abs Immat Gran (auto) (0.00-0.03) X10*3/uL Absolute Neuts (auto) (2.0-8.3) x10*3/uL Absolute Nucleated RBC (0.0-0.012) X10*3/uL Nucleated RBC % (auto) (0.0-0.2) /100WBC PT (10.0-13.1) SEC INR (0.9-1.1) Sodium (135-145) mmol/L Potassium (3.3-5.1) mmol/L Chloride (96-108) mmol/L Carbon Dioxide (22-29) mmol/L Anion Gap (12-20) BUN (9-16) mg/dL Creatinine (0.5-1.4) mg/dL Estim Creat Clear Calc Estimated GFR Random Glucose (60-115) mg/dL Calcium (8.4-10.2) mg/dL Total Bilirubin (0.0-1.0) mg/dL Direct Bilirubin (0.0-0.5) mg/dL AST (5-37) U/L ALT (0-40) U/L Alkaline Phosphatase (39-117) U/L Troponin I High Sens < 3.5 (<3.5-35.0) ng/L B-Natriuretic Peptide < 10 (<100) pg/mL Total Protein (6.5-8.0) g/dL Albumin (3.5-5.0) g/dL Influenza Type A (PCR) NEGATIVE (Negative) Influenza Type B (PCR) NEGATIVE (Negative) RSV RNA Qual (PCR) NEGATIVE (Negative) SARS-CoV-2 RNA (RT-PCR) NEGATIVE (Negative) 06/14/22 Range/Units 12:42 WBC (4.8-10.8) X10*3/uL RBC (4.60-5.80) X10*6/uL Hgb (14.0-18.0) g/dl Hct (42.0-52.0) % MCV (80.0-98.0) fL MCH (27.0-33.0) pg MCHC (31.0-36.0) g/dl RDW (11.0-16.0) % Plt Count (160-400) X10*3/uL MPV (9.4-12.4) fL Immature Gran % (Auto) (0.0-0.4) % Neut % (Auto) (45-73) % Lymph % (Auto) (20-40) % [place] % (Auto) (2-11) % Eos % (Auto) (0-4) % Baso % (Auto) (0-2) % Lymph # (Auto) (1.2-4.9) X10*3/uL [place] # (Auto) (0.1-1.2) X10*3/uL Eos # (Auto) (0.0-0.4) X10*3/uL Baso # (Auto) (0.0-0.2) X10*3/uL Abs Immat Gran (auto) (0.00-0.03) X10*3/uL Absolute Neuts (auto) (2.0-8.3) x10*3/uL Absolute Nucleated RBC (0.0-0.012) X10*3/uL Nucleated RBC % (auto) (0.0-0.2) /100WBC PT (10.0-13.1) SEC INR (0.9-1.1) Sodium (135-145) mmol/L Potassium (3.3-5.1) mmol/L Chloride (96-108) mmol/L Carbon Dioxide (22-29) mmol/L Anion Gap (12-20) BUN (9-16) mg/dL Creatinine (0.5-1.4) mg/dL Estim Creat Clear Calc Estimated GFR Random Glucose (60-115) mg/dL Calcium (8.4-10.2) mg/dL Total Bilirubin (0.0-1.0) mg/dL Direct Bilirubin (0.0-0.5) mg/dL AST (5-37) U/L ALT (0-40) U/L Alkaline Phosphatase (39-117) U/L Troponin I High Sens < 3.5 (<3.5-35.0) ng/L B-Natriuretic Peptide (<100) pg/mL Total Protein (6.5-8.0) g/dL Albumin (3.5-5.0) g/dL Influenza Type A (PCR) (Negative) Influenza Type B (PCR) (Negative) RSV RNA Qual (PCR) (Negative) SARS-CoV-2 RNA (RT-PCR) (Negative) Independent Interpretation I performed an independent interpretation of an: EKG and Plain X-Ray Interpretation: Independently reviewed the EKG shows normal sinus rhythm with rate of 79, normal NH, normal QRS, normal QT Independently reviewed the CXR and agree with radiologist report Radiology Impression Discussion of test interpretation with radiology: I have reviewed the radiologist's reading. Radiologist Impression: [place] [id number] XRay Report Signed Patient: Froilan Bartlett MR#: [id number] : 1960 Acct:[id number] Age/Sex: 61 / M ADM Date: 06/14/22 Loc: .ED Attending Dr: Ordering Physician: Generic ED Physician Date of Service: 06/14/22 Procedure(s): XR chest 1V Accession Number(s): [id number] cc: Generic ED Physician~ EXAMINATION: XR CHEST CLINICAL INFORMATION: Shortness of breath. COMPARISON: 05/06/2022 chest radiographs. TECHNIQUE: Frontal view of the chest was obtained. FINDINGS: No significant abnormality is noted involving the heart, lungs, mediastinum, bony thorax or soft tissues. XR/XR chest 1V IMPRESSION: No acute cardiopulmonary process. ? Discharge Plan Discharge Clinical Impression: Asthma exacerbation Patient Disposition: Home, Self-Care Instructions: Asthma (ED) Additional Instructions: Your blood work, EKG and chest x-ray are reassuring. Your viral testing is all negative Start your medications today Continue your asthma medication Follow-up up with firearms model maker Prescriptions: New omeprazole 40 mg capsule,delayed release(DR/EC) 40 mg PO DAILY Qty: 14 0RF prednisone 20 mg tablet 40 mg PO DAILY Qty: 10 0RF No Action sulfamethoxazole-trimethoprim [Bactrim DS] 800-160 mg tablet 1 tab PO BID 14 Days Qty: 28 0RF albuterol sulfate 90 mcg/actuation HFA aerosol inhaler 2 inh inhalation Q6-8H PRN (Reason: shortness of breath or wheezing) 30 Days Qty: 8.5 0RF bupropion HCl 100 mg tablet sustained-release 12 hr 100 mg PO BID Qty: 180 1RF betamethasone dipropionate 0.05 % cream topical DAILY budesonide-formoterol [Symbicort] 160-4.5 mcg/actuation HFA aerosol inhaler 2 puff inhalation BID lamotrigine 200 mg tablet 200 mg PO DAILY propranolol 10 mg tablet 10 - 20 mg PO DAILY PRN (Reason: panic attack) clobetasol 0.05 % cream topical tadalafil 20 mg tablet 20 mg PO ONCE PRN (Reason: sexual activity) 30 Days Qty: 30 0RF Rx Instructions: 60 minutes prior activity terazosin 5 mg capsule 5 mg PO BEDTIME 30 Days Qty: 30 1RF tadalafil 5 mg tablet 5 mg PO DAILY 90 Days Qty: 90 1RF wmflcbwccc-oihngxz-unsfywhe 50-325-40 mg capsule 1 cap PO Q12H PRN Referrals: Adrienne Trivedi MD [Physician] - 1 week Interventions: ED Discharge Assessment Last Done: 06/14/22 13:43 Discharge Date/Time: 06/14/22 13:44
[2022-06-14 10:13] LABS: MANUAL DIFF FLAG NO
[2022-06-14 10:18] LABS: Basophils Percent Auto 0.8 % (0-2); Eosinophils Absolute Auto 0.1 X10*3/uL (0.0-0.4); Eosinophils Percent Auto 1.6 % (0-4); Hematocrit 41.6 % (42.0-52.0); Hemoglobin 14.2 g/dl (14.0-18.0); Imm Gran Abs Auto 0.01 X10*3/uL (0.00-0.03); Imm Gran Pct Auto 0.2 % (0.0-0.4); Lymphocytes Absolute Auto 1.3 X10*3/uL (1.2-4.9); Lymphocytes Percent Auto 26.6 % (20-40); Mean Corpuscular HGB Conc 34.1 g/dl (31.0-36.0); Mean Corpuscular Hemoglobin 30.7 pg (27.0-33.0); Mean Corpuscular Volume 89.8 fL (80.0-98.0); Monocytes Absolute Auto 0.5 X10*3/uL (0.1-1.2); Monocytes Percent Auto 10.8 % (2-11); Platelet Count 276 X10*3/uL (160-400); Red Blood Count 4.63 X10*6/uL (4.60-5.80); Red Cell Distribution Width 11.5 % (11.0-16.0)
[2022-06-14 10:23] VITALS: RESP 18; O2SAT 95
[2022-06-14 10:23] LABS: Prothrombin Time 11.7 SEC (10.0-13.1)
[2022-06-14 10:41] LABS: Alanine Aminotransferase 17 U/L (0-40); Albumin Level 4.4 g/dL (3.5-5.0); Alkaline Phosphatase 88 U/L (39-117); Anion Gap 13 (12-20); Aspartate Amino Transferase 15 U/L (5-37); Bilirubin Direct 0.2 mg/dL (0.0-0.5); Bilirubin Total 0.6 mg/dL (0.0-1.0); Blood Urea Nitrogen 19 mg/dL (9-16); Calcium 9.3 mg/dL (8.4-10.2); Carbon Dioxide 25 mmol/L (22-29); Chloride 106 mmol/L (96-108); Creatinine Clr Calc Pharmacy 109.4; Estimated Glomerular Filt Rate > 60; Glucose Random 108 mg/dL (60-115); Potassium 4.4 mmol/L (3.3-5.1); Sodium 140 mmol/L (135-145); Total Protein 6.6 g/dL (6.5-8.0)
[2022-06-14 10:46] LABS: B Type Natriuretic Peptide < 10 pg/mL (<100)
[2022-06-14 10:57] LABS: Troponin-I High Sensitivity < 3.5 ng/L (<3.5-35.0)
[2022-06-14 11:00] LABS: Influenza A PCR NEGATIVE (Negative); Influenza B PCR NEGATIVE (Negative); Resp Syncy Virus RNA Qual PCR NEGATIVE (Negative); SARS COV2 PCR INHOUSE NEGATIVE (Negative)
[2022-06-14 11:37] VITALS: BP 131/87; PULSE 80; RESP 18; TEMP 36.6; O2SAT 100
[2022-06-14 13:11] LABS: Troponin-I High Sensitivity < 3.5 ng/L (<3.5-35.0)
[2022-06-14 13:43] VITALS: PULSE 89; RESP 20; O2SAT 98
== END 2022-06-14 13:44 | disposition home or self-care (01) ==
PROVIDERS: Nurse Practitioner Family; Emergency Provider Emergency Medicine; PCP Internal Medicine
DX: J45.901 Unspecified asthma with (acute) exacerbation (principal); Z20.822 Contact with and (suspected) exposure to COVID-19; Z20.828 Contact with and (suspected) exposure to other viral communicable diseases; R06.02 Shortness of breath; E78.00 Pure hypercholesterolemia, unspecified; Z87.891 Personal history of nicotine dependence; Z79.899 Other long term (current) drug therapy
CPT/HCPCS: 0241U; 36415; 71045; 80048; 80076; 83880; 84484; 85025; 85610; 93005; 99284

== ENCOUNTER 2022-07-22 10:12 | Day surgery (SDC) | payer OTHER, SELFPAY ==
[2022-07-17 12:32] VITALS: BMI 29.3
[2022-07-22 11:42] VITALS: BP 111/70; PULSE 68; RESP 15; TEMP 36; O2SAT 98
--- NOTE | 2022-07-22 13:22 | HO.ANESPROP2 ---
HPI - Anesthesia Eval Consult details Narrative: for left epididymectomy PMFSH Active Problems Active Problems: All Active Problems (Updated 07/22/22 @ 11:32 by Juli Pitts RN) Testicular pain, left (Acute) Varicocele (Acute) Acute epididymitis (Acute) Prostatitis (Acute) Hypercholesterolemia (Acute) Annual physical exam (Acute) Shoulder pain (Acute) Bilateral shoulder bursitis (Acute) Rotator cuff impingement syndrome (Acute) Erectile dysfunction (Acute) Right shoulder strain (Acute) Lumbar spine pain (Acute) Asthma exacerbation (Acute) Annual physical exam (Acute) Chronic pelvic pain in male (Acute) Anxiety (Acute) Dyspnea (Acute) Allergic rhinitis (Acute) Asthma (Acute) Major depression (Acute) Eczema craquele (Acute) Past Medical History Medical History Allergic rhinitis Anxiety Asthma Chronic prostatitis Dyspnea Eczema craquele Erectile dysfunction due to arterial insufficiency GERD (gastroesophageal reflux disease) History of varicocele Major depression Nocturia Varicocele present on ultrasound of scrotum Family History Family History Mother No problems noted. Father No problems noted. 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[employer] Cognitive needs: No Hearing needs: No Vision needs: No Meds Allergies Allergy/AdvReac Type Severity Reaction Status Date / Time levofloxacin Allergy Severe Difficulty Verified 07/22/22 11:34 Breathing Active Medications: Current Medications Lactated Ringer's (Lr) 1,000 mls @ 50 mls/hr IVCONT .Q20H [facility] Home Medications Medication Instructions Recorded Confirmed Last Taken Type betamethasone dipropionate 0.05 % applic topical DAILY 03/01/20 05/31/22 Unknown History topical cream lamotrigine 200 mg tablet 200 mg PO DAILY 01/17/21 05/31/22 Unknown History budesonide-formoterol HFA 160 2 puff inhalation BID 02/19/22 05/31/22 Unknown History mcg-4.5 mcg/actuation aerosol inhaler (Symbicort) kehtxcoshz-tjziqrv-hlihswyc 50 1 cap PO Q12H PRN 05/06/22 05/31/22 Unknown History mg-325 mg-40 mg capsule clobetasol 0.05 % topical cream g topical 05/31/22 05/31/22 Unknown History propranolol 10 mg tablet 10 - 20 mg PO DAILY PRN panic 05/31/22 05/31/22 Unknown History attack Exam Exam Date and Time: July 22, 2022 1322 Height,Weight and Vital Signs: Height 5 ft 9 in Weight 90.265 kg Last Vital Signs Temp 96.8 F 07/22/22 11:42 Pulse 68 07/22/22 11:42 Resp 15 07/22/22 11:42 BP 111/70 07/22/22 11:42 Pulse Ox 98 07/22/22 11:42 O2 Del Method Room Air 07/22/22 11:42 Airway Mallampati Class: II TM Dist: >3cm Neck ROM: Full Heart: ok Lungs: ok Assessment and Plan Assessment Anesthesia Assessment: Anesthesia Plan Discussed and Chart Reviewed Final Anesthetic Review Family History of Problems with Anesthesia: No History of Problems with Anesthesia: No NPO: Yes ASA Class: II Final Preanesthetic Review: No Changes in Pt Med Stat, Meds/Allgs Chart Reviewed, Consent Obtained/Reviewed and Anes Risks/Benef Reviewed Patient Risk: Intermediate Procedure Risk: Low Anesthetic Plan Anesthetic Plan: GA and Agree w/ Assess. and Plan Disposition: Standard PACU
--- NOTE | 2022-07-22 13:37 | MHC.SHP ---
Pre-Procedural Eval Section A Date of Service: 07/22/22 The patient is an INPATIENT: No Changes since office visit: No Cold of Flu in the past 2 weeks, No New Medical Problems, No Changes in Medication and No Patient answered all questions The History & Physical has been completed within 30 days and I have reviewed it.: No Section B Chief Complaint: Epididymitis Relevant Social History: None Present Medications: see Short Stay Collaborative assessment Medical History: No relevant PMH History of Previous Operations: No relevant previous surgery Allergies: Allergies Allergy/AdvReac Type Severity Reaction Status Date / Time levofloxacin Allergy Severe Difficulty Verified 07/22/22 11:34 Breathing Review of Systems Sugical H&P ROS: Negative: Constitution, Cardiovascular, Respiratory, Neurological, Psychiatric, Hem-Onc, Allergic/Immunologic, Gastrointestinal, Genitourinary, Musculoskeletal, Integumentary, Endocrine and Eyes/Ears/Nose/Throat Exam Surgical H&P Exam: Normal: HEENT, Normal: Heart, Normal: Lungs, Normal: Extremities, Normal: Abdomen, Normal: Skin and Normal: Neurological Plan Diagnosis/Plan: Unchanged ( left epididymectomy) I have reviewed the history and physical and performed a pertinent physical examination on my patient. No changes have occurred unless specified. Time Spent With Patient Time: Total time managing care of this patient today ____ minutes.
--- NOTE | 2022-07-22 14:44 | W.PM.OPN ---
Operative Note Operative Note Date of Service: 07/22/22 Narrative: PreOperative Diagnosis:? persistent left orchalgia Post Operative Diagnosis:? persistent left orchalgia Procedure:? left epididymectomy Surgeon: Dr Horace Dudley Anesthesia:? general Indications for procedure: prior left inguinal denervation procedure.? Persistent left orchalgia particularly on epididymal structures around the testicle.? Plan for left epididymectomy.? He is aware of potential of loss of vascular supply to the testicle and loss of testicle. Procedure: After informed consent was verified the patient was brought to the operating room and placed in a supine position.? Anesthesia was administered per protocol.? The patient was prepped and draped in a sterile fashion.? Safety pause time-out was performed.? Antibiotics being given. 10 cc lidocaine block placed in left scrotal cord. ? Incision made on left? scrotal horizontal incision.? This was taken down onto the testicle itself.? Hydrocele sac was opened. The testicle was delivered through the incision.? Mobilization was continued to allow the testicle and cord structures a to be mobile.? We were able to palpate the head of the epididymis and Vasa.? Dissection was performed carefully around the head of the epididymis.? Stay suture was placed through the head of the epididymis to give us traction.? The epididymis was carefully dissected from the testicle.? The feeding vessels were isolated and controlled with suture.? The dissection was continued and the epididymis released around the curve of the testicle and extended along with the convoluted portion of the Vasa.? The Vasa was followed up to its proximal portion.? A suture was placed through the paravasal tissue around the Vasa before division.? Once the head of the epididymis with laser attachments had been handed off for pathology any bleeding areas were cauterized.? The testicle was replaced back into the scrotum.? Closure was performed using 2-0 Vicryl for deep structures and interrupted 4-0 chromic sutures to reapposed the skin. ? dressing was applied with scrotal support. The patient tolerated the procedure well, was extubated in operating room? And transferred in stable condition recovery area. Pathology: ?epididymis with? Vasa Drains: none
[2022-07-22 14:49] VITALS: BP 107/74; PULSE 77; RESP 14; TEMP 36.2; O2SAT 93
[2022-07-22 14:54] VITALS: BP 104/70; PULSE 69; RESP 14; O2SAT 94
[2022-07-22 14:59] VITALS: BP 111/92; PULSE 82; RESP 16; O2SAT 94
[2022-07-22 15:04] VITALS: BP 106/69; PULSE 60; RESP 16; O2SAT 96
[2022-07-22 15:19] VITALS: BP 124/49; PULSE 67; RESP 18; TEMP 36.6; O2SAT 96
== END 2022-07-22 15:58 | disposition home or self-care (01) ==
PROVIDERS: PCP Internal Medicine; Visit Provider Urology
PROC: (CPT 54860; principal; 2022-07-22 12:10)
DX: N45.1 Epididymitis (principal); N50.812 Left testicular pain; N52.01 Erectile dysfunction due to arterial insufficiency; N41.1 Chronic prostatitis; R35.1 Nocturia; R06.00 Dyspnea, unspecified; L30.8 Other specified dermatitis; F32.A Depression, unspecified; J45.909 Unspecified asthma, uncomplicated; Z79.51 Long term (current) use of inhaled steroids; Z79.899 Other long term (current) drug therapy; Z88.1 Allergy status to other antibiotic agents; Z87.891 Personal history of nicotine dependence
CPT/HCPCS: 54860; 88304; J0131; J0690; J2795; J3010

== ENCOUNTER → 2022-10-03 08:15 | Outpatient (BNVA) | payer OTHER, SELFPAY | PROVIDERS: PCP Internal Medicine; Visit Provider Urology | DX: R68.82 Decreased libido (principal); N50.812 Left testicular pain | CPT/HCPCS: 99212 ==

== ENCOUNTER 2022-10-03 09:39 | Outpatient (REF) | payer OTHER, SELFPAY ==
[2022-10-11 15:48] LABS: Testosterone, Free 35.1 pg/mL (35.0-155.0); Testosterone, Total 439 ng/dL (250-1100)
== END 2022-10-03 09:40 | disposition home or self-care (01) ==
LOC: HO.10HDL 09:39
PROVIDERS: Visit Provider Urology
DX: E11.69 Type 2 diabetes mellitus with other specified complication (principal); N52.1 Erectile dysfunction due to diseases classified elsewhere; R68.82 Decreased libido; R10.2 Pelvic and perineal pain; N41.9 Inflammatory disease of prostate, unspecified; N50.812 Left testicular pain; Z79.899 Other long term (current) drug therapy
CPT/HCPCS: 36415; 84402; 84403

== ENCOUNTER 2022-11-13 09:22 | Outpatient (AMB) | payer OTHER, SELFPAY ==
--- NOTE | 2022-11-13 09:29 | MHC.PC.OV ---
Vital Signs 11/13/22 09:30 Height 5 ft 9 in Weight 198 lb 2 oz BMI 29.3 BP 124/74 Blood Pressure Location Lt brachial Position Sitting Pulse 73 Pulse Source Pulse Oximeter Pulse Oximetry (%) 98 Oxygen Delivery Method Room Air Intake Visit Reasons: LT arm bruise Intake Note: Patient is here today for left arm bruising. Information Technology Account Manager Required: No Infusion Nurse: Not Required per policy Accompanied by: Self / Same As Patient Allergies levofloxacin Allergy (Severe, Verified 11/13/22 09:30) Difficulty Breathing Tobacco use date assessed: 11/13/22 Dental Screening Dental Screen Date: 11/13/22 Did you have a dental visit in the last 12 months?: Yes Did you have a dental problem in the last 6 months where you did not have access to dental care?: No Was dental information given to patient?: Patient has dentist HPI LT arm bruise HPI Details 62-year-old male presents to the office for a sick visit. Patient is having few bruises on the arm that he would like examined. Minimal trauma it causes skin bruising for him. [facility] Medical History (Updated 11/13/22 @ 10:14 by Bandar Chavarria MD) Allergic rhinitis Anxiety Asthma Chronic prostatitis Dyspnea Eczema craquele Erectile dysfunction due to arterial insufficiency GERD (gastroesophageal reflux disease) History of varicocele Major depression Nocturia Varicocele present on ultrasound of scrotum Surgical History H/O colonoscopy History of testicular surgery Hx of sinus surgery S/P scrotal varicocelectomy Family History Mother No problems noted. Father No problems noted. 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 Fermin Quiñonez, Sara Gonzalez, Nish Hernandez and colleagues, with an educational isiah from [employer]. Physical exam (Primary Care) Vital Signs: Last Vital Signs Pulse 73 11/13/22 09:30 BP 124/74 11/13/22 09:30 Pulse Ox 98 11/13/22 09:30 Oxygen Delivery Method Room Air 11/13/22 09:30 BMI result Body Mass Index 29.3 Tobacco/Smoking Status: Tobacco use Status Tobacco use date assessed 11/13/22 11/13/22 09:33 Patient Tobacco Use Status Former Tobacco user 11/13/22 09:33 Tobacco use type Cigarette 11/13/22 09:33 e-Cigarette/Vaping Use Never Used 11/13/22 09:33 Thrive Assessment: Date of Thrive Assessment Date Thrive assessed 10/17/22 11/13/22 09:33 Const General: cooperative, healthy appearing and comfortable HENMT Head: Yes normal to inspection and Yes atraumatic Eyes General: appearance normal, both eyes and all related structures Neck Neck: Yes normal visual inspection and Yes full ROM Chest Chest palpation & inspection: normal inspection of the chest Resp Effort & Inspection: normal respiratory effort Auscultation: clear to auscultation bilaterally Cardio Jugular venous distension: no JVD Palpation: normal PMI Rate: regular rate Heart sounds: S1 normal heart sound present and S2 normal heart sound present GI Palpation (GI): Soft to palpation and No hepatosplenomegaly present Skin Other: Right forearm: Superficial bruising, 3 centimetres in size. No tenderness. Smaller lesions on the left forearm and the right ear lobe. Extrem General: Yes normal to inspection and Yes full ROM Assessment and Plan Assessment & Plan (1) Hematoma: Code(s): T14.8XXA - Other injury of unspecified body region, initial encounter Plan: Reassurance. Previous blood work was unremarkable. Coding Level of Care Code Est Pt Level 3 (42048) Diagnoses Hematoma T14.8XXA
[2022-11-13 09:30] VITALS: BP 124/74; PULSE 73; O2SAT 98; BMI 29.3
== END 2022-11-13 10:33 | disposition home or self-care (01) ==
PROVIDERS: PCP Internal Medicine; Visit Provider Internal Medicine
DX: T14.8XXA Other injury of unspecified body region, initial encounter (principal)
CPT/HCPCS: 99213

== ENCOUNTER 2022-12-25 08:00 | Outpatient (RCR) | payer OTHER, SELFPAY ==
--- NOTE | 2022-06-27 09:08 | MHC.PT.EP ---
[facility] [place] Office [place] Office [place] Office [address] Moreno Whitt [address] [phone] F: [phone] F: [phone] F: [phone] F: [phone] Physical Therapy Plan of Care Date of Evaluation: Date of Surgery: NA Diagnosis: Pelvic and perineal pain Assessment: Froilan is a 61 year old male who is referred to PT for pelvic and perineal pain . He reports of having h/o chronic pelvic pain for 4 years. His recent flare up was 4 months back and it has not resolved. In addition to this he has had 2 surgeries for varicocele on L side and is scheduled to have epididymitis in 3 weeks. He currently reports having constant pain in perineum, difficulty with ejaculation, urinary frequency and urgency. He denies having any bowel issues. In addition he also presented with limited lumbar ROM and stiffness in low back. He is independent with all ADLS. However reports of feeling very depressed and anxious. Is currently awaiting an appointment with a counselor. He would benefit from skilled PT to address the aforementioned impairments and improve tolerance to functional activities. Frequency and Duration: The patient will be seen 1/week for 6 weeks Short Term Goals: 1. Internal pelvic exam will be done in 2 weeks. 2. Pt will have 50% decrease in pain with sitting in 3 weeks. Side Gluer Goals: 1. Pt will present with decreased night voiding from 3 to 1 in 4 weeks. 2. Pt will be independent with [facility] for symptom management and maintenance following d/c in 6 weeks. Treatment Plan: Modalities to reduce pain, spasms and effusion. Manual therapy to restore motion and function. Therapeutic exercise to improve strength and flexibility. Neuromuscular re-education for posture and balance. Therapeutic activities to return to functional activities of daily living. Electronically signed by: Please sign and return to therapist. Thank you for your referral.
--- NOTE | 2022-12-25 10:52 | MHC.PT.DC ---
[facility] [place] Office [place] Office [place] Office [address] Moreno Whitt [address] [phone] F: [phone] F: [phone] F: [phone] F: [phone] Physical Therapy Discharge Report Diagnosis: Pelvic and perineal pain Date of Surgery: NA Date of Evaluation: 05/31/22 Date of Discharge: 12/25/22 Treatments to Date: 13 Cancellations to Date: 2 No Shows to Date: Discharge Status: Achieved Goals Improved Function Independent with HEP Discharge Summary: Froilan complete 13 PT visits. He has made significant improvements with PT. He has complete resolution of pain associated with his bladder, prostatis, anal pain, and urinary urgency and frequency symptoms. The only pain he currently has is small area of pain over the L testicle on the L side. Per pt the pain is provoked with prolonged standing and pressure. This pain has not changed since we started PT. At this time Froilan has made 90% improvements and is independent with HEP. He is therefore being d/c from PT. Electronically signed by: Rose Goldman, PT DPT Please sign and return to therapist. Thank you for your referral.
== END 2022-12-25 10:53 | disposition home or self-care (01) ==
LOC: HO.PT 08:00
PROVIDERS: Visit Provider Urology
DX: R10.2 Pelvic and perineal pain (principal)
CPT/HCPCS: 97110; 97112; 97140; 97162

== ENCOUNTER 2023-01-02 07:58 | Outpatient (REF) | payer OTHER, SELFPAY ==
[2023-01-16 11:38] LABS: Testosterone, Total 327 ng/dL (250-1100)
== END 2023-01-02 07:59 | disposition home or self-care (01) ==
LOC: HO.LAB 07:58
PROVIDERS: Visit Provider Urology
DX: R68.82 Decreased libido (principal)
CPT/HCPCS: 36415; 84402; 84403

== ENCOUNTER 2023-01-10 09:52 | Outpatient (AMB) | payer OTHER, SELFPAY ==
--- NOTE | 2023-01-10 09:53 | MHC.OFFVIS ---
Intake Intake Visit Reasons: 3m/PSA(set) Intake Note: Patient presents for tele visit follow up PSA/labs Urology Medications: none Blood Thinner: none Electronics Manufacturer Required: No Allergies levofloxacin Allergy (Severe, Verified 01/10/23 09:53) Difficulty Breathing HPI HPI Comments History of Present Illness Details Froilan VALLEJO is a very pleasant male. He is a patient of Dr Suggs. He is seen for the following urologic conditions. - prostatitis - left orchalgia - left varicocele - erectile dysfunction Telemedicine Evaluation 15 min Consultation Evaneos Damien Video attempted Left epididymectomy follow-up 07/18 - Pain on left testicle on exam - Mild scarring of surrounding tissues - good response physical therapy Reports rash which resolved after stopping daily tadalafil Would like to continue with on demand 20 mg Prescription provided 6 month follow-up Chronic pelvic floor pain Para-Prostatic pain bilateral Pelvic floor physical therapy - Interventions - left testicular denervation, 07/18 left epididymectomy Prostatitis/CPPS: Continued response to on demand Cialis They present for further evaluation of, chronic prostatitis. He is currently being treated with has been on abx and NSAID's - good effect - minimal pelvic pressure. Symptoms have been present 05/15 - had urge for many years. Laboratory testing included 09/12 PSA 0.8, 11/14 0.6, 05/20 0.6, 10/18 T 440 Type of prostatitis III - noninflammatory. Erectile dysfunction Progressive Associated conditions include dyslipidemia, hypertension Good response to daily tadalafil PFSH Medical History GERD (gastroesophageal reflux disease) Anxiety Dyspnea Allergic rhinitis Nocturia Erectile dysfunction due to arterial insufficiency Chronic prostatitis Major depression Eczema craquele History of varicocele Asthma Varicocele present on ultrasound of scrotum Surgical History History of testicular surgery Hx of sinus surgery H/O colonoscopy S/P scrotal varicocelectomy Family History Mother No problems noted. Father No problems noted. 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[employer] Cognitive needs: No Hearing needs: No Vision needs: No Review of Systems Const All systems reviewed & are unremarkable except as noted in HPI and below Reports no additional complaints Resp Reports no additional complaints GI Reports no additional complaints Reports as per HPI Musc Reports no additional complaints Physical Exam Telemedicine evaluation Appropriate responses Regular breathing rate and rhythm HEENT Head: Yes normal to inspection Ears: hearing grossly normal bilaterally Eyes General: appearance normal, both eyes and all related structures Neck Neck: Yes normal visual inspection Chest Chest palpation & inspection: normal inspection of the chest Resp Effort & Inspection: normal respiratory effort and able to speak in complete sentences Assessment & Plan Assessment & Plan (1) Testicular pain, left: Code(s): N50.812 - Left testicular pain (2) Erectile dysfunction: Code(s): N52.9 - Male erectile dysfunction, unspecified Plan Six month follow-up Medications: New tadalafil On demand medication take 60 minutes before intended activity 20 mg PO ONCE 30 days PRN 30 tabs 0RF sexual activity N52.9 - Male erectile dysfunction, unspecified Patient Instructions: Imaging studies, laboratory and physical exam results were discussed and reviewed in detail. No major barriers to patient understanding were identified. An opportunity to ask questions regarding the treatment plan was provided. All questions were answered. The patient expressed understanding and agreement with the above treatment plan. The patient is aware they should contact our office by phone for worsening of their current condition or the appearance of new urologic symptoms. Compliance is encouraged with any medications and followup testing that is ordered. It is a privilege to participate in the urologic care of your patient. If you have any questions or concerns regarding treatment for the above conditions, or other urologic issues, please do not hesitate to contact me. The office telephone contact is [phone]. This note is constructed using voice recognition software. While every effort has been made to ensure accuracy circulation representative errors may have been included. Yours sincerely, Dr Horace Dudley MD, [facility] - Urology Providers of Expert, Compassionate Care for the Genitourinary System Telehealth Telehealth Location of provider rendering services: practice address Location of patient: address on file Patient Identification confirmed using: Name, : Yes Telehealth method: video Patient verbally consented to treatment: Yes Patient verbally consented to billing insurance company: Yes Patient informed of any privacy concerns related to visit: Yes Coding Level of Care Code Tele Est Pt Level 3 (40219) Diagnoses Testicular pain, left N50.812 Erectile dysfunction N52.9
== END 2023-01-10 10:22 | disposition home or self-care (01) ==
LOC: HO.HUSH 09:52
PROVIDERS: PCP Internal Medicine; Visit Provider Urology
DX: N50.812 Left testicular pain (principal); N52.9 Male erectile dysfunction, unspecified
CPT/HCPCS: 99213

== ENCOUNTER → 2023-01-10 09:52 | Outpatient (BNVA) | payer OTHER, SELFPAY | PROVIDERS: PCP Internal Medicine; Visit Provider Urology ==

== ENCOUNTER 2023-03-17 08:04 | Outpatient (AMB) | payer OTHER, SELFPAY ==
--- NOTE | 2023-03-17 08:14 | MHC.OFFWIV ---
Intake Vital Signs 03/17/23 08:16 Height 5 ft 9 in Weight 203 lb BMI 30.0 BP 120/70 Blood Pressure Location Rt brachial Position Sitting Pulse 77 Pulse Source Pulse Oximeter Temp 97.9 F Temp Source Temporal Artery Scan Pulse Oximetry (%) 98 Intake Visit Reasons: EP 3 weeks sinus infection/congestion Intake Note: pt is here for c/o sinus infection 3x weeks Patient Tobacco Use Status: Former Tobacco user Quit Date: 8 months ago Allergies levofloxacin Allergy (Severe, Verified 03/17/23 08:32) Difficulty Breathing Medication List - Last Reconciled 03/17/23 by Bandar Chavarria MD albuterol sulfate 90 mcg/actuation 2 inhalations inhalation Q6-8H PRN 1 month budesonide-formoterol 160-4.5 mcg/actuation (Symbicort) 2 puffs inhalation BID jtoocbbsla-rxbosxq-irnxsenv 50-325-40 mg 1 cap PO Q12H PRN lamotrigine 25 mg PO DAILY lorazepam 0.5 mg PO BID PRN sertraline 25 mg PO DAILY tadalafil 20 mg PO ONCE PRN 30 days Do you need a note to return to daycare/school/sports/work: Yes HPI EP 3 weeks sinus infection/congestion HPI Details Patient presents for a sick visit. Reporting symptoms of sinus congestion, sore throat and difficulty swallowing. Low-grade fever. No family member is sick. No recent travel. Patient reports symptoms of malaise and fatigue. [facility] Medical History GERD (gastroesophageal reflux disease) Anxiety Dyspnea Allergic rhinitis Nocturia Erectile dysfunction due to arterial insufficiency Chronic prostatitis Major depression Eczema craquele History of varicocele Asthma Varicocele present on ultrasound of scrotum Surgical History History of testicular surgery Hx of sinus surgery H/O colonoscopy S/P scrotal varicocelectomy Family History Mother No problems noted. Father No problems noted. 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[employer] Cognitive needs: No Hearing needs: No Vision needs: No Physical Exam Vital Signs: Last Vital Signs Temp 97.9 F 03/17/23 08:16 Pulse 77 03/17/23 08:16 BP 120/70 03/17/23 08:16 Pulse Ox 98 03/17/23 08:16 BMI result Body Mass Index 30.0 Const General: cooperative and healthy appearing Nutritional Appearance: well nourished Orientation/consciousness: patient oriented x3 Limitations: no limitations HEENT Head: Yes normal to inspection Eyes General: appearance normal, both eyes and all related structures Neck Neck: Yes normal visual inspection Chest Chest palpation & inspection: normal palpation of entire chest wall Resp Effort & Inspection: normal respiratory effort Neuro General: patient oriented x3 Assessment & Plan Assessment & Plan (1) Upper respiratory tract infection: Code(s): J06.9 - Acute upper respiratory infection, unspecified Plan: Antibiotics ordered. Increase fluid intake. Tylenol for aches and pains. If symptoms worsen, follow-up here for a recheck. Coding Level of Care Code Est Pt Level 3 (34376) Diagnoses Upper respiratory tract infection J06.9
[2023-03-17 08:16] VITALS: BP 120/70; PULSE 77; TEMP 36.6; O2SAT 98
== END 2023-03-17 08:46 | disposition home or self-care (01) ==
PROVIDERS: PCP Internal Medicine; Visit Provider Internal Medicine
DX: J06.9 Acute upper respiratory infection, unspecified (principal)
CPT/HCPCS: 99213

== ENCOUNTER 2023-05-01 08:36 | Outpatient (AMB) | payer OTHER, SELFPAY ==
--- NOTE | 2023-05-01 08:49 | MHC.PC.OV ---
Vital Signs 05/01/23 08:50 Height 5 ft 9 in Weight 211 lb 2 oz BMI 31.2 BP 100/64 Blood Pressure Location Lt brachial Position Sitting Pulse 81 Pulse Source Pulse Oximeter Pulse Oximetry (%) 96 Oxygen Delivery Method Room Air Intake Visit Reasons: Annual exam Intake Note: Patient is here today for a physical. Assigner Required: No Real Estate Job Titles: Not Required per policy Accompanied by: Self / Same As Patient Allergies levofloxacin Allergy (Severe, Verified 05/01/23 09:50) Difficulty Breathing Medication List - Last Reconciled 05/01/23 by Bandar Chavarria MD albuterol sulfate 90 mcg/actuation 2 inhalations inhalation Q6-8H PRN 1 month budesonide-formoterol 160-4.5 mcg/actuation (Symbicort) 2 puffs inhalation BID jnytgiadqn-rlfxbcc-phglszuf 50-325-40 mg 1 cap PO Q12H PRN lamotrigine 50 mg PO DAILY lorazepam 0.5 mg PO BID PRN sertraline 25 mg PO DAILY Tobacco use date assessed: 05/01/23 Dental Screening Dental Screen Date: 05/01/23 Did you have a dental visit in the last 12 months?: Yes Did you have a dental problem in the last 6 months where you did not have access to dental care?: No Was dental information given to patient?: Patient has dentist HPI Annual exam HPI Details 62-year-old male presents to the office requesting an annual physical. The rash symptoms have resolved. The various muscle aches and shoulder pain that he had have diminished. His main issues are depression and low libido. Patient despite using Viagra is unable to maintain any erections. Is on Zoloft, Lamictal and lorazepam for his depression. Patient is in a single relationship which is stable. He is also requesting refill on a few of his medications. [facility] Medical History GERD (gastroesophageal reflux disease) Anxiety Dyspnea Allergic rhinitis Nocturia Erectile dysfunction due to arterial insufficiency Chronic prostatitis Major depression Eczema craquele History of varicocele Asthma Varicocele present on ultrasound of scrotum Surgical History History of testicular surgery Hx of sinus surgery H/O colonoscopy S/P scrotal varicocelectomy Family History Mother No problems noted. Father No problems noted. 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 1. Little interest or pleasure in doing things: more than half the days 2. Feeling down, depressed, or hopeless: more than half the days 3. Trouble falling or staying asleep, or sleeping too much: not at all 4. Feeling tired or having little energy: nearly every day 5. Poor appetite or overeating: not at all 6. Feeling bad about yourself - or that you are a failure or have let yourself or your family down: several days 7. Trouble concentrating on things, such as reading the newspaper or watching television: not at all 8. Moving or speaking so slowly that other people could have noticed. Or the opposite - being so fidgety or restless that you have been moving around a lot more than usual: several days 9. Thoughts that you would be better off or of hurting yourself in some way: not at all Total score: 9 Source: Developed by Drs. Fermin Quiñonez, Sara Gonzalez, Nish Hernandez and colleagues, with an educational isiah from [employer]. Thrive Questionnaire Date Thrive assessed: 05/01/23 I am a: Patient What is your living situation today?: I have a steady place to live Within the past 12 months, did the food you bought not last and you didn't have the money to get more?: Never true Within the past 12 months, did you worry whether your food would run out before you got money to buy more?: Never true Do you have trouble paying for medicines?: No Do you have trouble getting transportation to medical appointments?: No Do you have trouble paying your heating and electricity bill?: No Do you have trouble taking care of your child, family member or friend?: No Do you have trouble with day-to-day activities such as bathing, preparing meals, shopping, managing finances, etc.?: No Are you currently unemployed and looking for a job?: No Are you interested in more education?: No Currently or been in a relationship where the following occur: no concerns reported AUDIT C Alcohol Use Questionnaire (AUDIT-C) 1. How often do you have a drink containing alcohol?: Never Total Score: 0 SHAJI-7 AMB Questionnaire SHAJI-7 Date SHAJI - 7 assessed: 05/01/23 Feeling nervous, anxious, or on edge: 2 = More than half the days Not being able to stop or control worryin = More than half the days Worrying too much about different things: 2 = More than half the days Trouble relaxin = More than half the days Being so restless that it is hard to sit still: 0 = Not at all Becoming easily annoyed or irritable: 0 = Not at all Feeling afraid as if something awful might happen: 0 = Not at all Total SHAJI-7 score (0-4 normal; 5-9 mild; 10-14 moderate; 15-21 severe): 8 Source: Developed by Drs. Fermin Quiñonez, Sara Gonzalez, Nish Hernandez and colleagues, with an educational isiah from [employer]. Physical exam (Primary Care) Vital Signs: Last Vital Signs Pulse 81 05/01/23 08:50 BP 100/64 05/01/23 08:50 Pulse Ox 96 05/01/23 08:50 Oxygen Delivery Method Room Air 05/01/23 08:50 BMI result Body Mass Index 31.2 Tobacco/Smoking Status: Tobacco use Status Tobacco use date assessed 05/01/23 05/01/23 08:59 Patient Tobacco Use Status Former Tobacco user 05/01/23 08:59 Tobacco use type Cigarette 05/01/23 08:59 e-Cigarette/Vaping Use Never Used 05/01/23 08:59 PHQ-9: PHQ-9 Score PHQ-9: Total score 9 05/01/23 09:07 Thrive Assessment: Date of Thrive Assessment Date Thrive assessed 05/01/23 05/01/23 09:07 Currently or been in a relationship where the following occur: no concerns reported Const General: cooperative and healthy appearing Nutritional Appearance: well nourished Orientation/consciousness: patient oriented x3 Limitations: no limitations HENMT Head: Yes normal to inspection Eyes General: appearance normal, both eyes and all related structures Neck Neck: Yes normal visual inspection Chest Chest palpation & inspection: normal palpation of entire chest wall Resp Effort & Inspection: normal respiratory effort Neuro General: patient oriented x3 Assessment and Plan Assessment & Plan (1) Annual physical exam: Code(s): Z00.00 - Encounter for general adult medical examination without abnormal findings Plan: Blood work has been ordered. Will call with the results. He is up-to-date on all his immunizations. (2) Hypercholesterolemia: Code(s): E78.00 - Pure hypercholesterolemia, unspecified Coding Level of Care Code Est Pt Prev Care 40-64y(41411) Diagnoses Annual physical exam Z00.00 Hypercholesterolemia E78.00
[2023-05-01 08:50] VITALS: BP 100/64; PULSE 81; O2SAT 96; BMI 31.2
== END 2023-05-01 09:48 | disposition home or self-care (01) ==
PROVIDERS: Visit Provider Internal Medicine
DX: Z00.00 Encounter for general adult medical examination without abnormal findings (principal); E78.00 Pure hypercholesterolemia, unspecified
CPT/HCPCS: 99396

== ENCOUNTER 2023-05-02 07:27 | Outpatient (REF) | payer OTHER, SELFPAY ==
[2023-05-02 08:04] LABS: Hematocrit 42.8 % (42.0-52.0); Hemoglobin 14.5 g/dl (14.0-18.0); Mean Corpuscular HGB Conc 33.9 g/dl (31.0-36.0); Mean Corpuscular Hemoglobin 31.4 pg (27.0-33.0); Mean Corpuscular Volume 92.6 fL (80.0-98.0); Platelet Count 258 X10*3/uL (160-400); Red Blood Count 4.62 X10*6/uL (4.60-5.80); Red Cell Distribution Width 11.5 % (11.0-16.0); White Blood Count 6.9 X10*3/uL (4.8-10.8)
== END 2023-05-02 07:28 | disposition home or self-care (01) ==
LOC: HO.LAB 07:27
PROVIDERS: PCP Internal Medicine; Visit Provider Internal Medicine
DX: Z12.5 Encounter for screening for malignant neoplasm of prostate (principal); R68.82 Decreased libido; F32.9 Major depressive disorder, single episode, unspecified; E78.00 Pure hypercholesterolemia, unspecified
CPT/HCPCS: 36415; 80048; 80061; 80076; 84153; 84443; 85027

== ENCOUNTER 2023-07-16 07:14 | Outpatient (REF) | payer OTHER, SELFPAY ==
--- NOTE | ~2023-07-16 | CT_ITS ---
CT SINUS WITHOUT CONTRAST HISTORY: Sinonasal polyps TECHNIQUE: CT images of the paranasal sinuses were acquired without contrast. This CT examination was performed using dose optimization techniques as appropriate, variously including the following: *Automated exposure control *Adjustment of mA and/or kV according to patient size (this includes techniques or standardized protocols for targeted exams where dose is matched to indication/reason for exam; i.e. extremities or head) *Use of iterative reconstruction technique DLP: 108 mGy-cm COMPARISON: Sinus CT 07/20/2019 FINDINGS: Again noted prior functional endoscopic sinus surgery with bilateral uncinectomies/middle meatal antrostomies with contiguous postsurgical defect versus accessory sinus ostium on the right and two focal postsurgical defects versus accessory sinus ostia along the more posterior left maxillary sinus wall. Bilateral partial ethmoidectomies noted. The nasal cavity remains well aerated with similar appearance of polypoid soft tissue thickening along the right middle nasal turbinate/vertical lamella. A right odt lamella is seen. Stable somewhat medial positioning of the left middle nasal turbinate abutting the left aspect of the nasal septum for which intranasal synechiae are not excluded. New mucosal contact between the left middle and inferior nasal turbinates. Redemonstrated soft tissue opacification within the far anterior olfactory recesses/upper nasal cavities. The olfactory fossae are symmetric. The frontal sinuses are well aerated with resolved previously seen mucosal disease on the left. Patent bilateral frontal sinus drainage outflow tracts, previously opacified on the left. Similar mild polypoid mucosal disease along the roofs of the bilateral maxillary sinuses and mild mucosal disease within the dependent right alveolar recess. Resolved tiny retention cyst along the medial left maxillary sinus wall. The bilateral maxillary antrostomies remain widely patent. Decreased mild polypoid mucosal disease throughout the ethmoidectomy cavities/air cells. The right sphenoid sinus remains clear with patent right sphenoid sinus ostium and sphenoethmoidal recess. Redemonstrated significantly hypoplastic left sphenoid sinus with mild mucosal disease severely narrowing the ostium and patent sphenoethmoidal recess. A prominent left [place] air cell cell is seen with pneumatization extending into the left optic strut and anterior clinoid process. The sphenoid septum inserts onto the left paraclinoid carotid canal. Normal appearance of the orbits. The carotid canals are covered by bone. The temporomandibular joints are normal. The mastoid air cells and middle ear cavities are well aerated. Partially imaged mild age-appropriate generalized cerebral volume loss. Mild calcific plaque along the carotid siphons. CT/CT sinus wo IV con IMPRESSION: Redemonstrated prior functional endoscopic sinus surgery with decreased paranasal sinus mucosal disease as above, now most pronounced and mild throughout the ethmoidectomy cavity/ethmoid air cells. Stable polypoid mucosal disease along the right middle nasal turbinate/vertical lamella.
== END 2023-07-16 07:15 | disposition home or self-care (01) ==
LOC: HO.CT 07:14
PROVIDERS: PCP Internal Medicine; Visit Provider Otolaryngology
DX: J33.0 Polyp of nasal cavity (principal)
CPT/HCPCS: 70486

== ENCOUNTER 2023-08-01 14:26 | Outpatient (REF) | payer OTHER, SELFPAY ==
[2023-08-01 15:58] LABS: PSA,Total (Free>4and<10) 1.07 ng/mL (0.00-4.00)
== END 2023-08-01 14:27 | disposition home or self-care (01) ==
LOC: HO.LAB 14:26
PROVIDERS: PCP Internal Medicine; Visit Provider Urology
DX: Z12.5 Encounter for screening for malignant neoplasm of prostate (principal); N41.9 Inflammatory disease of prostate, unspecified
CPT/HCPCS: 36415; 84153

== ENCOUNTER 2023-08-12 15:21 | Outpatient (AMB) | payer OTHER, SELFPAY ==
--- NOTE | 2023-08-12 15:46 | MHC.OFFVIS ---
Intake Intake Visit Reasons: 6M PSA(set)Confirmed Intake Note: Patient is present for psa follow up Allergies levofloxacin Allergy (Severe, Verified 05/01/23 09:50) Difficulty Breathing Medication List - Last Reconciled 08/12/23 by Horace Dudley MD albuterol sulfate 90 mcg/actuation 2 inhalations inhalation Q6-8H PRN 1 month budesonide-formoterol 160-4.5 mcg/actuation (Symbicort) 2 puffs inhalation BID zpguswuuih-tuoiyra-dqkmaflv 50-325-40 mg 1 cap PO .Q 12 hours PRN lamotrigine 50 mg PO DAILY lorazepam 0.5 mg PO BID PRN sertraline 25 mg PO DAILY HPI HPI Comments History of Present Illness Details Froilan VALLEJO is a very pleasant male. He is a patient of Dr Suggs. He is seen for the following urologic conditions. - prostatitis - left orchalgia - left varicocele - erectile dysfunction On demand 20 mg tadalafil successful Minimal issues from left testicle Does have questions regarding libido Prior T mid 2022 440 Will repeat Chronic pelvic floor pain Para-Prostatic pain bilateral Pelvic floor physical therapy - Interventions - left testicular denervation, 07/18 left epididymectomy - good response to physical therapy Prostatitis/CPPS: Continued response to on demand Cialis They present for further evaluation of, chronic prostatitis. He is currently being treated with has been on abx and NSAID's - good effect - minimal pelvic pressure. Symptoms have been present 05/15 - had urge for many years. Laboratory testing included 09/12 PSA 0.8, 11/14 0.6, 05/20 0.6, 10/18 T 440, 08/19 1.1 Type of prostatitis III - noninflammatory. Erectile dysfunction Progressive Associated conditions include dyslipidemia, hypertension Good response to daily tadalafil PFSH Medical History GERD (gastroesophageal reflux disease) Anxiety Dyspnea Allergic rhinitis Nocturia Erectile dysfunction due to arterial insufficiency Chronic prostatitis Major depression Eczema craquele History of varicocele Asthma Varicocele present on ultrasound of scrotum Surgical History History of testicular surgery Hx of sinus surgery H/O colonoscopy S/P scrotal varicocelectomy Family History Mother No problems noted. Father No problems noted. 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[employer] Cognitive needs: No Hearing needs: No Vision needs: No Review of Systems Const Denies chills and Denies fever(s) Card Reports no additional complaints and Denies syncope Resp Denies cough GI Denies abdominal pain and Denies heartburn Reports as per HPI and Denies change in libido Neuro Denies syncope Psych Denies change in libido Endo Denies change in libido Physical Exam Const General: cooperative, healthy appearing, comfortable and no acute distress Orientation/consciousness: patient oriented x3 HEENT Face and sinus: Yes normal facial exam Mouth: moist mucous membranes Neck Neck: Yes normal visual inspection, Yes full ROM and Yes trachea midline Chest Chest palpation & inspection: normal inspection of the chest Resp Effort & Inspection: normal respiratory effort, able to speak in complete sentences and no respiratory distress GI Inspection: Yes normal to inspection Back/Spine/Pelvis Cervical Spine: normal cervical lordosis Thoracic/Lumbar Spine: thoracic and lumbar spine normal to inspection Skin General skin exam: no rashes or lesions noted Neuro General: patient oriented x3, gait normal, tone normal and moves all extremities Extrem General: Yes normal to inspection and Yes capillary refill normal Assessment & Plan Assessment & Plan (1) Testicular pain, left: Code(s): N50.812 - Left testicular pain (2) Erectile dysfunction: Code(s): N52.9 - Male erectile dysfunction, unspecified Plan Six-month follow-up testosterone Orders: Orders Testosterone, Free/Total Today R68.82 - Decreased libido Medications: New tadalafil Use 60 minutes prior to intended activity 20 mg PO ONCE PRN 30 tabs 0RF sexual activity 30 days N52.9 - Male erectile dysfunction, unspecified Patient Instructions: Imaging studies, laboratory and physical exam results were discussed and reviewed in detail. No major barriers to patient understanding were identified. An opportunity to ask questions regarding the treatment plan was provided. All questions were answered. The patient expressed understanding and agreement with the above treatment plan. The patient is aware they should contact our office by phone for worsening of their current condition or the appearance of new urologic symptoms. Compliance is encouraged with any medications and followup testing that is ordered. It is a privilege to participate in the urologic care of your patient. If you have any questions or concerns regarding treatment for the above conditions, or other urologic issues, please do not hesitate to contact me. The office telephone contact is [phone]. This note is constructed using voice recognition software. While every effort has been made to ensure accuracy rehabilitation engineer errors may have been included. Yours sincerely, Dr Horace Dudley MD, [facility] U[facility] Providers of Expert, Compassionate Care for the Genitourinary System Coding Level of Care Code Est Pt Level 3 (57305) Diagnoses Testicular pain, left N50.812 Erectile dysfunction N52.9
== END 2023-08-12 16:10 | disposition home or self-care (01) ==
PROVIDERS: PCP Internal Medicine; Visit Provider Urology
DX: N50.812 Left testicular pain (principal); N52.9 Male erectile dysfunction, unspecified
CPT/HCPCS: 99213

== ENCOUNTER → 2023-08-12 15:21 | Outpatient (BNVA) | payer OTHER, SELFPAY | PROVIDERS: PCP Internal Medicine; Visit Provider Urology | DX: N50.812 Left testicular pain (principal); N52.9 Male erectile dysfunction, unspecified | CPT/HCPCS: 99212 ==

== ENCOUNTER 2023-08-13 06:27 | Outpatient (REF) | payer OTHER, SELFPAY ==
[2023-08-17 16:34] LABS: Testosterone, Free 53.9 pg/mL (35.0-155.0); Testosterone, Total 435 ng/dL (250-1100)
== END 2023-08-13 06:28 | disposition home or self-care (01) ==
LOC: HO.LAB 06:27
PROVIDERS: Visit Provider Urology
DX: R68.82 Decreased libido (principal)
CPT/HCPCS: 36415; 84402; 84403

== ENCOUNTER 2023-10-07 10:44 | Outpatient (REF) | payer OTHER, SELFPAY | END 2023-10-07 10:45 | disposition home or self-care (01) | LOC: HO.HMGCLNP 10:44 | PROVIDERS: Visit Provider Nurse Practitioner Primary Care | DX: Z13.89 Encounter for screening for other disorder (principal) ==

== ENCOUNTER 2023-10-07 15:09 | Outpatient (AMB) | payer OTHER, SELFPAY ==
--- NOTE | 2023-10-07 15:10 | AM.OFFWIN_ITS ---
Intake Vital Signs 10/07/23 15:11 Height 5 ft 9 in Weight 201 lb BMI 29.7 BP 110/80 Blood Pressure Location Rt brachial Position Sitting Pulse 87 Pulse Source Pulse Oximeter Temp 98.5 F Temp Source Oral Pulse Oximetry (%) 98 Oxygen Delivery Method Room Air Intake Visit Reasons: Wheezing/Chest suzan Intake Note: pt here for wheezing and chest congestion, started 8 days ago Patient Tobacco Use Status: Former Tobacco user Allergies levofloxacin Allergy (Severe, Verified 10/07/23 15:30) Difficulty Breathing Medication List - Last Reconciled 10/07/23 by CASA Ovalle albuterol sulfate 90 mcg/actuation 2 inhalations inhalation Q6-8H PRN 1 month budesonide-formoterol 160-4.5 mcg/actuation (Symbicort) 2 puffs inhalation BID bupropion HCl XL 150 mg PO DAILY zyikvqsehr-xeangij-bpyxgoay 50-325-40 mg 1 cap PO .Q 12 hours PRN dupilumab (Dupixent) mg subcut lamotrigine 50 mg PO DAILY lorazepam 0.5 mg PO BID PRN methylprednisolone 0 mg PO omeprazole 40 mg PO DAILY tadalafil 20 mg PO ONCE PRN 30 days Do you need a note to return to daycare/school/sports/work: Yes HPI HPI Comments History of Present Illness Details Patient is a 63-year-old male in today for a sick visit. Patient reports that for the past 8 days he has developed symptoms of chest tightness, sinus tenderness, chills. Has utilized his albuterol inhaler with mild edema effect. States that he feels like he is getting progressively worse over the past 8 days. Denies chest pain or shortness of breath, denies nausea, vomiting, diarrhea. He is currently taking methylprednisolone for rotator cuff. Does have Symbicort inhaler however he has not been using it. Patient took albuterol inhaler 2 hours prior to this appointment. Will obtain URI swab in office today [facility] Medical History GERD (gastroesophageal reflux disease) Anxiety Dyspnea Allergic rhinitis Nocturia Erectile dysfunction due to arterial insufficiency Chronic prostatitis Major depression Eczema craquele History of varicocele Asthma Varicocele present on ultrasound of scrotum Surgical History History of testicular surgery Hx of sinus surgery H/O colonoscopy S/P scrotal varicocelectomy Family History Mother No problems noted. Father No problems noted. 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 Oriented X3.? No acute distress.? Head: Normocephalic. Eyes: Pupils equal, round and reactive to light.?Sclera white. ENT: Pharynx normal.?+ sinus tenderness. Neck: Normal inspection.? Neck supple.? CVS: Normal heart rate and rhythm.? Pulses normal.? Respiratory: No respiratory distress.? Wheeze of bilateral upper lobes. Neuro: Oriented X 3.? No motor deficit.? No sensory deficit. CN 2-12 intact Assessment & Plan Assessment & Plan (1) Sinusitis: Comment: patient has been instructed to start using his Symbicort inhaler. Will be given azithromycin. Has been educated on signs of worsening symptoms when to report to the walk-in clinic or when to present to the ED. Code(s): J32.9 - Chronic sinusitis, unspecified Qualifiers: Sinusitis location: unspecified location Chronicity: unspecified Qualified Code(s): J32.9 - Chronic sinusitis, unspecified Plan: Take your medications as prescribed. If you were prescribed antibiotics today, it is important that you take your medication to their entirety, do not skip any doses, do not finish them early. Follow-up with your primary care provider this week. Return to the emergency department with new or worsening symptoms. Such as fevers, chills, chest pain, shortness of breath, nausea, vomiting, dizziness, headache, vision changes, lethargy In case of emergency call 911 Orders: Orders SARS-CoV2/FLU/RSV Today J06.9 - Acute upper respiratory infection, unspecified Medications: New azithromycin For 250 mg dose pack: take 500 mg today (day 1), then 250 mg for 4 days (days 2-5) PO 6 tabs 0RF Coding Level of Care Code Est Pt Level 3 (65973) Diagnoses Sinusitis, unspecified chronicity, unspecified location J32.9 Sinusitis location: unspecified location Chronicity: unspecified Time Spent (min) 24
[2023-10-07 15:11] VITALS: BP 110/80; PULSE 87; TEMP 36.9; O2SAT 98; BMI 29.7
== END 2023-10-07 15:44 | disposition home or self-care (01) ==
PROVIDERS: PCP Internal Medicine; Visit Provider Nurse Practitioner Primary Care
DX: J32.9 Chronic sinusitis, unspecified (principal)
CPT/HCPCS: 99213

== ENCOUNTER 2023-11-18 14:58 | Outpatient (AMB) | payer OTHER, SELFPAY ==
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
[2023-11-18 15:03] VITALS: BP 140/90; PULSE 80; O2SAT 99; BMI 29.3
[2023-11-18 15:10] VITALS: BP 110/80
== END 2023-11-18 15:57 | disposition home or self-care (01) ==
PROVIDERS: PCP Internal Medicine; Visit Provider Internal Medicine
DX: E78.00 Pure hypercholesterolemia, unspecified (principal); S46.911A Strain of unspecified muscle, fascia and tendon at shoulder and upper arm level, right arm, initial encounter
CPT/HCPCS: 99214; G2211

== ENCOUNTER 2023-11-19 06:58 | Outpatient (REF) | payer OTHER, SELFPAY ==
[2023-11-19 08:23] LABS: Appearance Urine Clear; Color Urine Yellow; Glucose Urine UA Negative (Negative); Leukocyte Esterase Urine Negative (Negative); Nitrite Urine Negative (Negative); PH 7.5 (5.0-9.0); Urine Blood Negative (Negative); Urine Ketones Negative (Negative); Urine Protein Negative (Neg-Trace)
[2023-11-19 09:00] LABS: Alanine Aminotransferase 17 U/L (0-40); Albumin Level 4.2 g/dL (3.5-5.0); Alkaline Phosphatase 64 U/L (39-117); Anion Gap 14 (12-20); Aspartate Amino Transferase 15 U/L (5-37); Bilirubin Direct 0.2 mg/dL (0.0-0.5); Bilirubin Total 0.4 mg/dL (0.0-1.0); Blood Urea Nitrogen 14 mg/dL (9-16); Calcium 9.5 mg/dL (8.4-10.2); Carbon Dioxide 25 mmol/L (22-29); Chloride 105 mmol/L (96-108); Cholesterol 185 mg/dL (<200); Estimated Glomerular Filt Rate > 60; Glucose Random 98 mg/dL (60-115); HDL Cholesterol 49 mg/dL (>40); LDL Cholesterol Calculated 123 mg/dL (<100); Sodium 140 mmol/L (135-145); Total Protein 6.9 g/dL (6.5-8.0); Triglycerides 67 mg/dL (<150)
[2023-11-19 09:19] LABS: Thyroid Stimulating Hormone 0.79 uIU/mL (0.32-4.0)
== END 2023-11-19 06:59 | disposition home or self-care (01) ==
LOC: HO.LAB 06:58
PROVIDERS: PCP Internal Medicine; Visit Provider Internal Medicine
DX: E78.00 Pure hypercholesterolemia, unspecified (principal); S46.911A Strain of unspecified muscle, fascia and tendon at shoulder and upper arm level, right arm, initial encounter; X58.XXXA Exposure to other specified factors, initial encounter; Y93.9 Activity, unspecified; Y92.9 Unspecified place or not applicable; Y99.9 Unspecified external cause status
CPT/HCPCS: 36415; 80048; 80061; 80076; 81003; 84443

== ENCOUNTER 2024-01-09 15:13 | Outpatient (AMB) | payer OTHER, SELFPAY ==
--- NOTE | 2024-01-09 15:18 | AM.OFFWIN_ITS ---
Intake Vital Signs 01/09/24 15:19 Height 5 ft 9 in Weight 197 lb BMI 29.1 BP 108/66 Blood Pressure Location Lt brachial Position Sitting Pulse 76 Pulse Source Pulse Oximeter Temp 98.3 F Temp Source Oral Pulse Oximetry (%) 97 Oxygen Delivery Method Room Air Intake Visit Reasons: EP SOB, inhaler not working. Intake Note: pt c/o SOB, wheezing, inhaler not effective. Started 1 week ago Patient Tobacco Use Status: Former Tobacco user Allergies levofloxacin Allergy (Severe, Verified 01/09/24 15:23) Difficulty Breathing Do you need a note to return to daycare/school/sports/work: No HPI HPI Comments History of Present Illness Details Patient is a 63-year-old male complaining of 1 week of an itchy throat, cough and increased shortness of breath. He states he has an inhaler and he has been using it but it does not help his symptoms. He denies any fevers, headaches, sinus pain or ear pain. He states he does use Zyn nicotine pouches and is wondering if that is what is irritating the back of his throat. He does have another maintenance medication that he uses for his asthma but he only uses it seasonally. He has not been taking it. [facility] Medical History GERD (gastroesophageal reflux disease) Anxiety Dyspnea Allergic rhinitis Nocturia Erectile dysfunction due to arterial insufficiency Chronic prostatitis Major depression Eczema craquele History of varicocele Asthma Varicocele present on ultrasound of scrotum Surgical History History of testicular surgery Hx of sinus surgery H/O colonoscopy S/P scrotal varicocelectomy Family History Mother No problems noted. Father No problems noted. 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 Cognitive needs: No Hearing needs: No Vision needs: No Review of Systems Const All systems reviewed & are unremarkable except as noted in HPI and below Physical Exam Vital Signs: Last Vital Signs Temp 98.3 F 01/09/24 15:19 Pulse 76 01/09/24 15:19 BP 108/66 01/09/24 15:19 Pulse Ox 97 01/09/24 15:19 Oxygen Delivery Method Room Air 01/09/24 15:19 BMI result Body Mass Index 29.1 Const General: cooperative, healthy appearing, comfortable and no acute distress Orientation/consciousness: patient oriented x3 Limitations: no limitations HEENT Head: Yes normal to inspection Ears: hearing grossly normal bilaterally, external ears normal and TM's normal bilaterally General nose exam: Normal external nose present, Normal nares present and No nasal discharge present Face and sinus: Yes normal facial exam and Yes sinuses nontender Mouth: Normal oral and palatal mucosa present and moist mucous membranes Throat: Yes tonsils normal, Yes uvula midline and Yes posterior oropharynx abnormal (Erythema) Eyes General: appearance normal, both eyes and all related structures Neck Neck: Yes normal visual inspection Resp Effort & Inspection: normal respiratory effort, able to speak in complete se ntences, no respiratory distress, not tachypneic, no tripod positioning and no use of accessory muscles Auscultation: wheezes expiratory wheezes and scattered wheezes Cardio Rate: regular rate Rhythm: regular rhythm Heart sounds: normal S1 and S2 Skin General skin exam: no rashes or lesions noted Neuro General: patient oriented x3 Extrem General: Yes normal to inspection and Yes no clubbing, cyanosis or edema Assessment & Plan Assessment & Plan (1) Asthma exacerbation: Code(s): J45.901 - Unspecified asthma with (acute) exacerbation Qualifiers: Asthma severity: mild Asthma persistence: unspecified Qualified Code(s): J45.901 - Unspecified asthma with (acute) exacerbation Plan: Recommended he stop using the in nicotine pouches as they are likely irritating the back of his throat but he also probably has seasonal allergies and should st art taking an allergy medication such as Xyzal daily. Also because of the expiratory wheezes, I will send over 20mg prednisone for 5 days. Recommended if his shortness of breath is not improving or symptoms get worse that he should go to the emergency department. Plan See above Medications: New prednisone 20 mg PO DAILY 5 tabs 0RF Coding Level of Care Code Est Pt Level 3 (19048) Diagnoses Mild asthma with exacerbation, unspecified whether persistent J45.901 Asthma severity: mild Asthma persistence: unspecified
[2024-01-09 15:19] VITALS: BP 108/66; PULSE 76; TEMP 36.8; O2SAT 97; BMI 29.1
== END 2024-01-09 15:58 | disposition home or self-care (01) ==
PROVIDERS: PCP Internal Medicine; Visit Provider Physician Assistant
DX: J45.901 Unspecified asthma with (acute) exacerbation (principal)
CPT/HCPCS: 99213

== ENCOUNTER 2024-01-22 08:02 | Outpatient (AMB) | payer OTHER, SELFPAY ==
[2024-01-22 08:06] VITALS: BP 120/78; PULSE 96; TEMP 36.9; O2SAT 96; BMI 29.3
--- NOTE | 2024-01-22 08:06 | MHC.OFFWIV ---
Intake Vital Signs 01/22/24 08:06 Height 5 ft 9 in Weight 198 lb 8 oz BMI 29.3 BP 120/78 Blood Pressure Location Lt brachial Position Sitting Pulse 96 Pulse Source Pulse Oximeter Temp 98.4 F Temp Source Oral Pulse Oximetry (%) 96 Oxygen Delivery Method Room Air Intake Visit Reasons: EP Chest congestion Patient Tobacco Use Status: Former Tobacco user Allergies levofloxacin Allergy (Severe, Verified 01/22/24 08:12) Difficulty Breathing Do you need a note to return to daycare/school/sports/work: No HPI EP Chest congestion HPI Details This note is constructed using voice recognition software. While every effort has been made to ensure accuracy, c++ professor errors may have been included. The patient is a 63 year old male who presents to the clinic today with 1 month history of cough and wheeze. He notes that he has a history of seasonal allergies, this is the time of year that they act up. He had been seen in the clinic approximately 2 weeks ago and put on a prednisone burst however it did not seem to improve his symptoms. He is using his inhaler about 3 times per day. He denies fever, chills, dyspnea. He has had no new sick contacts. He has been able to work throughout the event. [facility] Medical History GERD (gastroesophageal reflux disease) Anxiety Dyspnea Allergic rhinitis Nocturia Erectile dysfunction due to arterial insufficiency Chronic prostatitis Major depression Eczema craquele History of varicocele Asthma Varicocele present on ultrasound of scrotum Surgical History History of testicular surgery Hx of sinus surgery H/O colonoscopy S/P scrotal varicocelectomy Family History Mother No problems noted. Father No problems noted. 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[employer] Cognitive needs: No Hearing needs: No Vision needs: No Review of Systems Const All systems reviewed & are unremarkable except as noted in HPI and below Physical Exam Vital Signs: Last Vital Signs Temp 98.4 F 01/22/24 08:06 Pulse 96 01/22/24 08:06 BP 120/78 01/22/24 08:06 Pulse Ox 96 01/22/24 08:06 Oxygen Delivery Method Room Air 01/22/24 08:06 BMI result Body Mass Index 29.3 Const General: cooperative, healthy appearing, comfortable and no acute distress Orientation/consciousness: patient oriented x3 Limitations: no limitations HEENT Head: Yes normal to inspection Ears: hearing grossly normal bilaterally, external ears normal and TM abnormal retracted General nose exam: Normal external nose present, No nasal discharge present and Abnormal mucous membranes and turbinates present boggy and pale Face and sinus: Yes normal facial exam and Yes sinuses nontender Mouth: Normal oral and palatal mucosa present and moist mucous membranes Throat: Yes tonsils normal, Yes uvula midline, Yes posterior oropharynx abnormal (Erythema), Yes postnasal drainage and Yes cobblestoning Eyes General: appearance normal, both eyes and all related structures Neck Neck: Yes normal visual inspection Resp Effort & Inspection: normal respiratory effort, able to speak in complete sentences, Actively coughing, no respiratory distress, not tachypneic, no tripod positioning and no use of accessory muscles Auscultation: wheezes (Partially Clears with cough) Cardio Rate: regular rate Rhythm: regular rhythm Heart sounds: normal S1 and S2 Skin General skin exam: no rashes or lesions noted Neuro General: patient oriented x3 Extrem General: Yes normal to inspection and Yes no clubbing, cyanosis or edema Assessment & Plan Assessment & Plan (1) Bronchitis: Code(s): J40 - Bronchitis, not specified as acute or chronic Plan: Given prolongation of symptoms, we will treat for bacterial infection. Azithromycin sent to requested pharmacy. Additionally given that he had tried a prednisone burst but it did not help resolve the symptoms, we will do a prednisone taper over 10 days. Advised patient to follow up with worsening or failure to resolve. Plan See above for full details and plan. Medications: New prednisone 5 tablets daily for 2 days, then 4 tablets daily for 2 days, then 3 tablets daily for 2 days, then 2 tablets daily for 2 days, then 1 tablet daily for 2 days. 10 mg PO DIRECTED 30 tabs 0RF azithromycin For 250 mg dose pack: take 500 mg today (day 1), then 250 mg for 4 days (days 2-5) PO 6 tabs 0RF Coding Level of Care Code Est Pt Level 3 (55581) Diagnoses Bronchitis J40
== END 2024-01-22 09:00 | disposition home or self-care (01) ==
PROVIDERS: PCP Internal Medicine; Visit Provider Registered Nurse
DX: J40 Bronchitis, not specified as acute or chronic (principal)

== ENCOUNTER → 2024-01-22 08:02 | Outpatient (BNVA) | payer OTHER, SELFPAY | PROVIDERS: PCP Internal Medicine | DX: J40 Bronchitis, not specified as acute or chronic (principal) | CPT/HCPCS: 99212 ==

== ENCOUNTER 2024-01-26 12:25 | Emergency (ER) | payer OTHER, SELFPAY ==
[2024-01-26 13:20] VITALS: BP 135/86; PULSE 82; RESP 18; TEMP 36.7; O2SAT 97; BMI 29.5
--- NOTE | 2024-01-26 13:20 | ED_ITS ---
HPI - General Adult General Stated complaint: Diff breathing Related Data Home Medications ?Medication ?Instructions ?Recorded ?Confirmed budesonide-formoterol HFA 160 2 puff inhalation BID 02/19/22 11/18/23 mcg-4.5 mcg/actuation aerosol inhaler (Symbicort) lorazepam 0.5 mg tablet 0.5 mg PO BID PRN 10/03/22 11/18/23 lamotrigine 25 mg tablet 50 mg PO DAILY 05/01/23 11/18/23 bupropion HCl 150 mg 24 hr tablet, 150 mg PO DAILY 10/07/23 11/18/23 extended release dupilumab 300 mg/2 mL subcutaneous mg subcut Q2W 01/09/24 pen injector (Dupixent) omeprazole 40 mg capsule,delayed 40 mg PO DAILY PRN 01/09/24 release Previous Rx's ?Medication ?Instructions ?Recorded tadalafil 20 mg tablet 20 mg PO ONCE PRN sexual activity 08/20/23 30 days #30 tabs fmfvzkcyin-jvgozdy-btrfobke 50 1 cap PO .Q 12 hours PRN pain #30 11/18/23 mg-325 mg-40 mg capsule caps albuterol sulfate 90 mcg/actuation 2 inh inhalation Q6-8H PRN 01/05/24 aerosol inhaler shortness of breath or wheezing 1 month #8.5 grams tamsulosin 0.4 mg capsule (Flomax) 0.4 mg PO DAILY #90 caps 01/14/24 azithromycin 250 mg tablet See Rx Instructions PO .COMPLEX #6 01/22/24 tabs prednisone 10 mg tablet 10 mg PO DIRECTED #30 tabs 01/22/24 Allergies Allergy/AdvReac Type Severity Reaction Status Date / Time levofloxacin Allergy Severe Difficulty Verified 01/26/24 13:22 Breathing [facility] Past Medical History Medical History GERD (gastroesophageal reflux disease) Anxiety Dyspnea Allergic rhinitis Nocturia Erectile dysfunction due to arterial insufficiency Chronic prostatitis Major depression Eczema craquele History of varicocele Asthma Varicocele present on ultrasound of scrotum Surgical History History of testicular surgery Hx of sinus surgery H/O colonoscopy S/P scrotal varicocelectomy Family History Family History Mother No problems noted. Father No problems noted. 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 He reports finishing 2 courses of prednisone as well as a course of azithromycin and reports continued shortness of breath. Discharge Plan Discharge Prescriptions: No Action tadalafil 20 mg tablet 20 mg PO ONCE PRN (Reason: sexual activity) 30 Days Qty: 30 4RF Rx Instructions: Use 60 minutes prior to intended activity albuterol sulfate 90 mcg/actuation HFA aerosol inhaler 2 inh inhalation Q6-8H PRN (Reason: shortness of breath or wheezing) 30 Days Qty: 8.5 0RF tamsulosin [Flomax] 0.4 mg capsule 0.4 mg PO DAILY Qty: 90 1RF bupropion HCl 150 mg tablet extended release 24 hr 150 mg PO DAILY Dupixent Pen 300 mg/2 mL pen injector subcut Q2W omeprazole 40 mg capsule,delayed release(DR/EC) 40 mg PO DAILY PRN budesonide-formoterol [Symbicort] 160-4.5 mcg/actuation HFA aerosol inhaler 2 puff inhalation BID podwenmplj-wbvouiu-cutldghz 50-325-40 mg capsule 1 cap PO .Q 12 hours PRN (Reason: pain) Qty: 30 0RF lorazepam 0.5 mg tablet 0.5 mg PO BID PRN lamotrigine 25 mg tablet 50 mg PO DAILY azithromycin 250 mg tablet See Rx Instructions PO .COMPLEX Qty: 6 0RF Rx Instructions: For 250 mg dose pack: take 500 mg today (day 1), then 250 mg for 4 days (days 2-5) PO prednisone 10 mg tablet 10 mg PO DIRECTED Qty: 30 0RF Rx Instructions: 5 tablets daily for 2 days, then 4 tablets daily for 2 days, then 3 tablets daily for 2 days, then 2 tablets daily for 2 days, then 1 tablet daily for 2 days. Print Language: Belgian
== END 2024-01-26 13:56 | disposition left against medical advice (07) ==
PROVIDERS: Emergency Provider Emergency Medicine; PCP Internal Medicine
DX: R06.02 Shortness of breath (principal); Z79.899 Other long term (current) drug therapy
CPT/HCPCS: 99212; 99281

== ENCOUNTER 2024-01-26 13:35 | Outpatient (AMB) | payer OTHER, SELFPAY ==
[2024-01-26 13:37] VITALS: BP 136/78; PULSE 76; O2SAT 95; BMI 29.4
--- NOTE | 2024-01-26 13:37 | A.OFFPC_ITS ---
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 Required: No Accompanied by: Self / Same As Patient Allergies levofloxacin Allergy (Severe, Verified 01/26/24 14:38) Difficulty Breathing Medication List - Last Reconciled 01/26/24 by Bandar Chavarria MD albuterol sulfate 90 mcg/actuation 2 inhalations inhalation Q6-8H PRN 1 month azithromycin For 250 mg dose pack: take 500 mg today (day 1), then 250 mg for 4 days (days 2-5) PO budesonide-formoterol 160-4.5 mcg/actuation (Symbicort) 2 puffs inhalation BID bupropion HCl XL 150 mg PO DAILY aolptdjlhe-qiriupg-xlhiohfi 50-325-40 mg 1 cap PO .Q 12 hours PRN dupilumab (Dupixent) mg subcut Q2W lamotrigine 50 mg PO DAILY lorazepam 0.5 mg PO BID PRN omeprazole 40 mg PO DAILY PRN prednisone 10 mg PO DIRECTED tadalafil 20 mg PO ONCE PRN 30 days tamsulosin (Flomax) 0.4 mg PO DAILY Tobacco use date assessed: 11/18/23 Dental Screening Dental Screen Date: 05/01/23 HPI Shortness of breath HPI Details 63-year-old male presents to the office for a sick visit. Patient has been feeling sick for the past month. Reports symptoms of wheezing, nonproductive cough. In addition he feels tired and has malaise. Was seen at the walk-in earlier this month and given prednisone. He returned back to the walk-in and was given a higher dosage on the prednisone along with antibiotics. Patient reports symptoms of wheezing continue to bother him and proceeded to the emergency room today. Because of the long wait he came to the office to be seen. [facility] Medical History GERD (gastroesophageal reflux disease) Anxiety Dyspnea Allergic rhinitis Nocturia Erectile dysfunction due to arterial insufficiency Chronic prostatitis Major depression Eczema craquele History of varicocele Asthma Varicocele present on ultrasound of scrotum Surgical History History of testicular surgery Hx of sinus surgery H/O colonoscopy S/P scrotal varicocelectomy Family History Mother No problems noted. Father No problems noted. 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 1. Little interest or pleasure in doing things: more than half the days 2. Feeling down, depressed, or hopeless: more than half the days 3. Trouble falling or staying asleep, or sleeping too much: not at all 4. Feeling tired or having little energy: nearly every day 5. Poor appetite or overeating: not at all 6. Feeling bad about yourself - or that you are a failure or have let yourself or your family down: several days 7. Trouble concentrating on things, such as reading the newspaper or watching television: not at all 8. Moving or speaking so slowly that other people could have noticed. Or the o pposite - being so fidgety or restless that you have been moving around a lot more than usual: several days 9. Thoughts that you would be better off or of hurting yourself in some way: not at all Total score: 9 Source: Developed by Drs. Fermin Quiñonez, Sara Gonzalez, Nish Hernandez and colleagues, with an educational isiah from [employer]. Thrive Questionnaire Date Thrive assessed: 05/01/23 AUDIT C Alcohol Use Questionnaire (AUDIT-C) 1. How often do you have a drink containing alcohol?: Never Total Score: 0 SHAJI-7 AMB Questionnaire SHAJI-7 Date SHAJI - 7 assessed: 05/01/23 Source: Developed by Sara Wilson B.W. Carlos, Nish Hernandez and colleagues, with an educational isiah from [employer]. Physical exam (Primary Care) Vital Signs: Last Vital Signs Pulse 76 01/26/24 13:37 BP 136/78 01/26/24 13:37 Pulse Ox 95 01/26/24 13:37 Oxygen Delivery Method Room Air 01/26/24 13:37 BMI result Body Mass Index 29.4 Tobacco/Smoking Status: Tobacco use Status Tobacco use date assessed 11/18/23 01/26/24 13:40 Patient Tobacco Use Status Former Tobacco user 01/26/24 13:40 Tobacco use type Cigarette 01/26/24 13:40 e-Cigarette/Vaping Use Never Used 01/26/24 13:40 PHQ-9: PHQ-9 Score PHQ-9: Total score 9 01/26/24 13:44 Thrive Assessment: Date of Thrive Assessment Date Thrive assessed 05/01/23 01/26/24 13:40 Const General: cooperative and healthy appearing Nutritional Appearance: well nourished Orientation/consciousness: patient oriented x3 Limitations: no limitations HENMT Head: Yes normal to inspection Eyes General: appearance normal, both eyes and all related structures Neck Neck: Yes normal visual inspection Chest Other: Scattered wheeze bilaterally Chest palpation & inspection: normal palpation of entire chest wall Resp Effort & Inspection: normal respiratory effort Neuro General: patient oriented x3 Assessment and Plan Assessment & Plan (1) Acute bronchitis: Code(s): J20.9 - Acute bronchitis, unspecified Plan: Chest x-ray has been ordered. Prednisone with a long taper ordered. Complete antibiotic course. Follow-up in 48 hours. Orders: Orders XR chest 2V Today J20.9 - Acute bronchitis, unspecified Medications: New prednisone 6 pills by mouth day 1, 6 pills by mouth day 2, 5 pills by mouth day 3, 4 pills by mouth day 4, 3 pills by mouth day 5, 2 pills by mouth day 6, 1 pill by mouth day 7 and 1 pill by mouth day 8. 10 mg PO DAILY 28 tabs 0RF Discontinued prednisone 5 tablets daily for 2 days, then 4 tablets daily for 2 days, then 3 tablets daily for 2 days, then 2 tablets daily for 2 days, then 1 tablet daily for 2 days. Discontinued Reason: Doctor's Order 10 mg PO DIRECTED 30 tabs 0RF Coding Level of Care Code Est Pt Level 4 (12618) Complex EM visit Add On G2211 Diagnoses Acute bronchitis J20.9
== END 2024-01-26 14:38 | disposition home or self-care (01) ==
PROVIDERS: PCP Internal Medicine; Visit Provider Internal Medicine
DX: J20.9 Acute bronchitis, unspecified (principal)

== ENCOUNTER 2024-01-26 14:51 | Outpatient (REF) | payer OTHER, SELFPAY ==
--- NOTE | ~2024-01-26 | XR_ITS ---
EXAMINATION: XR CHEST CLINICAL INFORMATION: J20.9 - Acute bronchitis, unspecified COMPARISON: None available. TECHNIQUE: 2 views of the chest were obtained. FINDINGS: The cardiac, hilar, and mediastinal contours are normal. The lungs are clear bilaterally. There is no pneumothorax or pleural effusion. There is no focal osseous or soft tissue abnormality. There are mild degenerative changes throughout the spine. XR/XR chest 2V IMPRESSION: No active pulmonary disease. Electronically signed by: Moises Oliver MD 04/04/2024 03:35 PM MAURIZIO
== END 2024-01-26 14:52 | disposition home or self-care (01) ==
LOC: HO.XRAY 14:51
PROVIDERS: PCP Internal Medicine; Visit Provider Internal Medicine
DX: J20.9 Acute bronchitis, unspecified (principal)
CPT/HCPCS: 71046

== ENCOUNTER → 2024-01-26 14:55 | Outpatient (BNV) | payer OTHER, SELFPAY | PROVIDERS: PCP Internal Medicine; Visit Provider Radiology Diagnostic Radiology | DX: J20.9 Acute bronchitis, unspecified (principal) | CPT/HCPCS: 71046 ==

== ENCOUNTER 2024-01-28 10:40 | Outpatient (AMB) | payer OTHER, SELFPAY ==
--- NOTE | 2024-01-28 11:00 | MHC.PC.OV ---
Vital Signs 01/28/24 11:03 Height 5 ft 9 in Weight 199 lb 6 oz BMI 29.4 BP 128/72 Blood Pressure Location Lt brachial Position Sitting Pulse 83 Pulse Source Pulse Oximeter Pulse Oximetry (%) 97 Oxygen Delivery Method Room Air Intake Visit Reasons: F/U Intake Note: Patient is here to follow up on Acute Bronchitis. Information Systems Project Manager Required: No Staff Development Coordinator: Not Required per policy Accompanied by: Self / Same As Patient Allergies levofloxacin Allergy (Severe, Verified 01/28/24 11:02) Difficulty Breathing Tobacco use date assessed: 01/28/24 Dental Screening Dental Screen Date: 05/01/23 HPI HPI Comments History of Present Illness Details 63 yr old male presents to the office for a follow up visit. After last visit, he did not get the prescription of prednisone. Completed the antibiotic course and using the inhalers. Continues to have sx of wheezing and shortness of breath. Symptoms are improving but not fully resolved. No fevers or chills. [facility] Medical History GERD (gastroesophageal reflux disease) Anxiety Dyspnea Allergic rhinitis Nocturia Erectile dysfunction due to arterial insufficiency Chronic prostatitis Major depression Eczema craquele History of varicocele Asthma Varicocele present on ultrasound of scrotum Surgical History History of testicular surgery Hx of sinus surgery H/O colonoscopy S/P scrotal varicocelectomy Family History Mother No problems noted. Father No problems noted. 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 Fermin Quiñonez, Sara Gonzalez, Nish Hernandez and colleagues, with an educational isiah from [employer]. Physical exam (Primary Care) Vital Signs: Last Vital Signs Pulse 83 01/28/24 11:03 BP 128/72 01/28/24 11:03 Pulse Ox 97 01/28/24 11:03 Oxygen Delivery Method Room Air 01/28/24 11:03 BMI result Body Mass Index 29.4 Tobacco/Smoking Status: Tobacco use Status Tobacco use date assessed 01/28/24 01/28/24 11:13 Patient Tobacco Use Status Former Tobacco user 01/28/24 11:00 Tobacco use type Cigarette 01/28/24 11:00 e-Cigarette/Vaping Use Never Used 01/28/24 11:00 Thrive Assessment: Date of Thrive Assessment Date Thrive assessed 05/01/23 01/28/24 11:00 Const General: cooperative and healthy appearing Nutritional Appearance: well nourished Orientation/consciousness: patient oriented x3 Limitations: no limitations HENMT Head: Yes normal to inspection Eyes General: appearance normal, both eyes and all related structures Neck Neck: Yes normal visual inspection Chest Chest palpation & inspection: normal palpation of entire chest wall Resp Other: Scattered wheeze Effort & Inspection: normal respiratory effort Neuro General: patient oriented x3 Coding Level of Care Code Est Pt Level 3 (05527) Complex EM visit Add On G2211 Diagnoses Acute bronchitis J20.9 Assessment & Plan Assessment & Plan (1) Acute bronchitis: Code(s): J20.9 - Acute bronchitis, unspecified Plan: Patient was encouraged to get the prescription for prednisone from the pharmacy. Informed him that the Cxr was read by me and no abnormality detected. Still awaiting the official report.
[2024-01-28 11:03] VITALS: BP 128/72; PULSE 83; O2SAT 97; BMI 29.4
== END 2024-01-28 11:31 | disposition home or self-care (01) ==
PROVIDERS: PCP Internal Medicine; Visit Provider Internal Medicine
DX: J20.9 Acute bronchitis, unspecified (principal)

== ENCOUNTER → 2024-01-28 10:40 | Outpatient (BNVA) | payer OTHER, SELFPAY | PROVIDERS: PCP Internal Medicine; Visit Provider Internal Medicine | DX: J20.9 Acute bronchitis, unspecified (principal) | CPT/HCPCS: 99212 ==

== ENCOUNTER 2024-02-09 06:37 | Outpatient (REF) | payer OTHER, SELFPAY ==
[2024-02-09 06:56] LABS: MANUAL DIFF FLAG NO
[2024-02-09 07:24] LABS: Basophils Percent Auto 0.6 % (0-2); Eosinophils Absolute Auto 0.3 X10*3/uL (0.0-0.4); Hematocrit 41.7 % (42.0-52.0); Hemoglobin 13.9 g/dl (14.0-18.0); Imm Gran Abs Auto 0.02 X10*3/uL (0.00-0.03); Imm Gran Pct Auto 0.3 % (0.0-0.4); Lymphocytes Absolute Auto 1.5 X10*3/uL (1.2-4.9); Lymphocytes Percent Auto 24.3 % (20-40); Mean Corpuscular HGB Conc 33.3 g/dl (31.0-36.0); Mean Corpuscular Hemoglobin 31.5 pg (27.0-33.0); Mean Corpuscular Volume 94.6 fL (80.0-98.0); Mean Platelet Volume 9.7 fL (9.4-12.4); Monocytes Absolute Auto 0.4 X10*3/uL (0.1-1.2); Monocytes Percent Auto 7.1 % (2-11); Neutrophils Percent Auto 63.7 % (45-73); Platelet Count 254 X10*3/uL (160-400); Red Blood Count 4.41 X10*6/uL (4.60-5.80); Red Cell Distribution Width 11.2 % (11.0-16.0); White Blood Count 6.2 X10*3/uL (4.8-10.8)
[2024-02-09 07:51] LABS: Alanine Aminotransferase 20 U/L (0-40); Albumin Level 4.1 g/dL (3.5-5.0); Alkaline Phosphatase 64 U/L (39-117); Anion Gap 12 (12-20); Aspartate Amino Transferase 15 U/L (5-37); Bilirubin Total 0.4 mg/dL (0.0-1.0); Blood Urea Nitrogen 10 mg/dL (9-16); Calcium 9.8 mg/dL (8.4-10.2); Carbon Dioxide 26 mmol/L (22-29); Chloride 106 mmol/L (96-108); Estimated Glomerular Filt Rate > 60; Glucose Random 108 mg/dL (60-115); Potassium 4.2 mmol/L (3.3-5.1); Sodium 140 mmol/L (135-145); Total Protein 6.6 g/dL (6.5-8.0)
[2024-02-09 08:08] LABS: Thyroid Stimulating Hormone 0.97 uIU/mL (0.32-4.0); Vitamin D 25-OH Total 62.6 ng/mL (>30)
[2024-02-09 08:15] LABS: Vitamin B12 537 pg/mL (200-900)
[2024-02-10 07:48] LABS: Immunoglobulin A 230 mg/dL (70-320); Immunoglobulin G 790 mg/dL (600-1540); Immunoglobulin M 46 mg/dL (50-300)
[2024-02-10 07:58] LABS: Triiodothyronine T3 Free 3.4 pg/mL (2.3-4.2); Triiodothyronine T3 Total 102 ng/dL (76-181)
[2024-02-10 11:59] LABS: Thyroglobulin Antibodies <1 IU/mL (< or = 1); Thyroid Peroxidase Antibodies <1 IU/mL (<9)
== END 2024-02-09 06:38 | disposition home or self-care (01) ==
LOC: HO.LAB 06:37
PROVIDERS: PCP Internal Medicine; Visit Provider Nurse Practitioner
DX: F41.1 Generalized anxiety disorder (principal); F33.2 Major depressive disorder, recurrent severe without psychotic features; E56.9 Vitamin deficiency, unspecified
CPT/HCPCS: 36415; 80053; 82306; 82607; 82784; 84436; 84443; 84480; 84481; 85025; 86376; 86800

== ENCOUNTER 2024-02-12 13:21 | Outpatient (REF) | payer OTHER, SELFPAY ==
[2024-02-20 14:33] LABS: Testosterone, Free 54.5 pg/mL (35.0-155.0); Testosterone, Total 398 ng/dL (250-1100)
== END 2024-02-12 13:22 | disposition home or self-care (01) ==
LOC: HO.LAB 13:21
PROVIDERS: PCP Internal Medicine; Visit Provider Urology
DX: R68.82 Decreased libido (principal)
CPT/HCPCS: 36415; 84402; 84403

== ENCOUNTER 2024-02-25 10:42 | Outpatient (AMB) | payer OTHER, SELFPAY ==
--- NOTE | 2024-02-25 10:39 | A.OFFVIS_ITS ---
Intake Visit Reasons: 6M Testosterone(set) Intake Note: Patient is present for 6M TESTOSTERONE Urology Medication:TADALAFIL,TAMSULOSIN Antibiotic Allergy:LEVOFLOXACIN Blood Thinner:NONE Enterprise Integration Architect Required: No Allergies levofloxacin Allergy (Severe, Verified 02/25/24 10:41) Difficulty Breathing HPI Comments Details: Froilan VALLEJO is a very pleasant male. He is a patient of Dr Suggs. He is seen for the following urologic conditions. - prostatitis - with lower urinary tract symptoms - left orchalgia - left varicocele - erectile dysfunction Telemedicine Evaluation 15 min Consultation [employer] Damien Video Trial 3 days naproxen when prostate flare On demand 20 mg tadalafil successful Minimal issues from left testicle Low libido Testosterone - 10/18 440, 02/18 400 Medications renewed tamsulosin Six-month follow-up office Lower urinary tract symptoms Response were altered tamsulosin Chronic pelvic floor pain Para-Prostatic pain bilateral Pelvic floor physical therapy - Interventions - left testicular denervation, 07/18 left epididymectomy - good response to physical therapy Prostatitis/CPPS: Continued response to on demand Cialis They present for further evaluation of, chronic prostatitis. He is currently being treated with has been on abx and NSAID's - good effect - minimal pelvic pressure. Symptoms have been present 05/15 - had urge for many years. Laboratory testing included 09/12 PSA 0.8, 11/14 0.6, 05/20 0.6, 10/18 T 440, 08/19 1.1 Type of prostatitis III - noninflammatory. Erectile dysfunction Progressive Associated conditions include dyslipidemia, hypertension Good response to daily tadalafil [facility] Medical History GERD (gastroesophageal reflux disease) Anxiety Dyspnea Allergic rhinitis Nocturia Erectile dysfunction due to arterial insufficiency Chronic prostatitis Major depression Eczema craquele History of varicocele Asthma Varicocele present on ultrasound of scrotum Surgical History History of testicular surgery Hx of sinus surgery H/O colonoscopy S/P scrotal varicocelectomy Family History Mother No problems noted. Father No problems noted. 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[employer] Cognitive needs: No Hearing needs: No Vision needs: No Telehealth Telehealth Telehealth Platform: [employer] Location of provider rendering services: practice address Location of patient: address on file Patient Identification confirmed using: Name, : Yes Telehealth method: video Patient verbally consented to treatment: Yes Patient verbally consented to billing insurance company: Yes Patient informed of any privacy concerns related to visit: Yes Minutes spent on Phone/Video with Pt.: 15 Assessment & Plan Assessment & Plan (1) Erectile dysfunction: Code(s): N52.9 - Male erectile dysfunction, unspecified Category: Medical (2) Low libido: Code(s): R68.82 - Decreased libido Category: Medical (3) Prostatitis: Code(s): N41.9 - Inflammatory disease of prostate, unspecified Category: Medical Plan Six-month follow-up office Orders: Orders Testosterone, Free/Total 02/12/24 R68.82 - Decreased libido Medications: New naproxen (Naprosyn) Use for 3 days when prostatitis flares 500 mg PO Q12H 30 days PRN 60 tabs 0RF pain N41.9 - Inflammatory disease of prostate, unspecified, S39.91XA - Unspecified injury of abdomen, initial encounter Patient Instructions: Imaging studies, laboratory and physical exam results were discussed and reviewed in detail. No major barriers to patient understanding were identified. An opportunity to ask questions regarding the treatment plan was provided. All questions were answered. The patient expressed understanding and agreement with the above treatment plan. The patient is aware they should contact our office by phone for worsening of their current condition or the appearance of new urologic symptoms. Compliance is encouraged with any medications and followup testing that is ordered. It is a privilege to participate in the urologic care of your patient. If you have any questions or concerns regarding treatment for the above conditions, or other urologic issues, please do not hesitate to contact me. The office telephone contact is [phone]. This note is constructed using voice recognition software. While every effort has been made to ensure accuracy timers inspector errors may have been included. Yours sincerely, Dr Horace Dudley MD, [facility] Providers of Expert, Compassionate Care for the Genitourinary System Coding Level of Care Code Tele Est Pt Level 4 (50196) Diagnoses Erectile dysfunction N52.9 Low libido R68.82 Prostatitis N41.9
== END 2024-02-25 11:24 | disposition home or self-care (01) ==
LOC: HO.HUSH 10:42
PROVIDERS: PCP Internal Medicine; Visit Provider Urology
DX: N52.9 Male erectile dysfunction, unspecified (principal); R68.82 Decreased libido; N41.9 Inflammatory disease of prostate, unspecified
CPT/HCPCS: 99214

== ENCOUNTER → 2024-02-25 10:42 | Outpatient (BNVA) | payer OTHER, SELFPAY | PROVIDERS: PCP Internal Medicine; Visit Provider Urology ==

== ENCOUNTER 2024-05-24 10:19 | Outpatient (REF) | payer OTHER, SELFPAY ==
--- NOTE | ~2024-05-24 | XR_ITS ---
EXAMINATION: XR CHEST 2 VIEWS HISTORY: R05.9 - Cough, unspecified COMPARISON: Comparison is made with the prior examination dated 01/26/2024. FINDINGS: PA and lateral views of the chest are submitted. The lungs are expanded and clear. There is no pleural effusion, pneumothorax, or pulmonary vascular congestion. The heart is normal in size. There is degenerative disc disease of the spine. XR/XR chest 2V IMPRESSION: No acute cardiopulmonary abnormality. Electronically signed by: Fermin Dye MD 05/24/2024 12:49 PM [facility]
--- OUTSIDE RECORDS SUMMARY | 2024-05-24 16:42 | XMS_ITS | Clinical Summary ---
Author Organization [employer] Address [address] [place] [address] Care Team Providers Care Cardiovascular Disease Specialist Name Role Phone Unavailable Primary Care Provider Unavailabl e Social History Tobacco Use Types Packs/Day Years Used Date Smoking Tobacco: Never Assessed Sex and Gender Information Value Date Recorded Sex Assigned at Male 02/25/2022 10:34 AM EDT Legal Sex Male 10:34 AM EDT Gender Identity Male 02/25/2022 10:34 AM EDT Sexual Orientation Straight 02/25/2022 10 :34 AM EDT Plan of Treatment Health Maintenance Due Date Last Done Comments CT Colonography 1962 Colonoscopy 1962 Colorectal Cancer Screening 1962 Depression Screening 1962 FIT DNA/Cologuard 1962 FIT 1962 FOBT 1962 Lipid Panel 1962 Sigmoidoscopy 1962 Alcohol/Substance Use Screening 1974 Tobacco Screening 1974 DTaP/Tdap/Td Vaccines (1 - Tdap) 1981 Zoster Vaccines (1 of 2) 2012 COVID-19 Vaccine ( - 2023-2 5 season) 2023 Influenza Vaccine (#1) 2023 RSV Patients and Pa tients Aged 60 years or older (1 - 1-dose 75+ series) 2037 HIB Vaccines Aged Out No longer eligi ble based on patient's age to complete this topic HPV Vaccines Aged Out No longer eligi ble based on patient's age to complete this topic Hepatitis A Vaccines Aged Out No long er eligible based on patient's age to complete this topic Hepatitis B Vaccines Aged Out No long er eligible based on patient's age to complete this topic IPV Vaccines Aged Out No longer eligi ble based on patient's age to complete this topic Meningococcal Vaccine Aged Out No freddie citlalli eligible based on patient's age to complete this topic Pneumococcal Vaccine: Pediat rics (0 to 5 Years) and At-Risk Patients (6 to 64 Years) Aged Out No longer eligible b ased on patient's age to complete this topic RSV under 20 months Aged Out No longe r eligible based on patient's age to complete this topic Rotavirus Vaccines Aged Out No longer eligible based on patient's age to complete this topic
--- OUTSIDE RECORDS SUMMARY | 2024-05-24 16:42 | XMS_ITS | Encounter Summary ---
Author Organization [employer] Address [address] [place] [address] Care Team Providers Care Retail Support Associate Name Role Phone Unavailable Primary Care Provider Unavailabl e Encounter Details Date Type Department Care Team (Latest Contact Info) Description 02/23/2020 Abstract [facility] CON[facility] Dental, Provider, DDS Social History Tobacco Use Types Packs/Day Years Used Date Smoking Tobacco: Never Assessed Sex and Gender Information Value Date Recorded Sex Assigned at Male 02/25/2022 10:34 AM EDT Legal Sex Male 10:34 AM EDT Gender Identity Male 02/25/2022 10:34 AM EDT Sexual Orientation Straight 02/25/2022 10 :34 AM EDT documented as of this encounter Plan of Treatment Not on file documented as of this encounter Visit Diagnoses Not on filedocumented in this encounter
--- OUTSIDE RECORDS SUMMARY | 2024-05-24 16:42 | XMS_ITS | Encounter Summary ---
Author Organization [employer] Address [address] [place] [address] Care Team Providers Care Drawing Instructor Name Role Phone Unavailable Primary Care Provider Unavailabl e Encounter Details Date Type Department Care Team (Latest Contact Info) Description 01/26/[address] [facility] CONVERSIONS Dental, Provider, DDS Social History Tobacco [...]
== END 2024-05-24 10:20 | disposition home or self-care (01) ==
LOC: HO.XRAY 10:19
PROVIDERS: PCP Internal Medicine; Visit Provider Physician Assistant Medical
DX: J45.909 Unspecified asthma, uncomplicated (principal); R05.9 Cough, unspecified; J40 Bronchitis, not specified as acute or chronic; J30.9 Allergic rhinitis, unspecified; F41.9 Anxiety disorder, unspecified; F32.9 Major depressive disorder, single episode, unspecified
CPT/HCPCS: 71046; 96127; 99212

== ENCOUNTER 2024-05-24 10:19 | Outpatient (AMB) | payer OTHER, SELFPAY ==
--- NOTE | 2024-05-24 11:24 | MHC.PC.OV ---
Vital Signs 05/24/24 11:26 Height 5 ft 9 in Weight 202 lb 8 oz BMI 29.9 BP 110/80 Blood Pressure Location Lt brachial Position Sitting Pulse 81 Pulse Source Pulse Oximeter Temp 96.2 F L Temp Source Skin Pulse Oximetry (%) 97 Oxygen Delivery Method Room Air Intake Visit Reasons: Cough Intake Note: Patient is here to follow up on Cough, wheezing, SOB for three weeks. OTC not helping. Deputy County Clerk Required: No County Coroner: Not Required per policy Accompanied by: Self / Same As Patient Allergies levofloxacin Allergy (Severe, Verified 05/24/24 11:46) Difficulty Breathing Medication List - Last Reconciled 05/24/24 by Nevin Hawkins PA-C albuterol sulfate 90 mcg/actuation 1 inh inhalation QID PRN albuterol sulfate 90 mcg/actuation 2 inhalations inhalation Q6-8H PRN 1 month amoxicillin-pot clavulanate 875-125 mg 1 tab PO BID 10 days budesonide-formoterol 160-4.5 mcg/actuation (Symbicort) 2 puffs inhalation BID bupropion HCl XL 150 mg PO DAILY uijnzhpagk-aqpiqez-riorsdua 50-325-40 mg 1 cap PO .Q 12 hours PRN dupilumab (Dupixent) mg subcut Q2W lamotrigine 50 mg PO DAILY loratadine-pseudoephedrine 5-120 mg ER (Claritin-D 12 Hour) 1 tab PO Q12H PRN lorazepam 0.5 mg PO BID PRN naproxen (Naprosyn) 500 mg PO Q12H PRN 30 days omeprazole 40 mg PO DAILY PRN prednisone 10 mg PO DAILY prednisone 40 mg (2 x 20 mg) PO DAILY 5 days tadalafil 20 mg PO ONCE PRN 30 days tamsulosin (Flomax) 0.4 mg PO DAILY tramadol 50 mg PO Q8H PRN 7 days Tobacco use date assessed: 05/24/24 Dental Screening Dental Screen Date: 05/24/24 Did you have a dental visit in the last 12 months?: Yes Did you have a dental problem in the last 6 months where you did not have access to dental care?: No Was dental information given to patient?: Patient has dentist [facility] Medical History GERD (gastroesophageal reflux disease) Anxiety Dyspnea Allergic rhinitis Nocturia Erectile dysfunction due to arterial insufficiency Chronic prostatitis Major depression Eczema craquele History of varicocele Asthma Varicocele present on ultrasound of scrotum Surgical History History of testicular surgery Hx of sinus surgery H/O colonoscopy S/P scrotal varicocelectomy Family History Mother No problems noted. Father No problems noted. 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 1. Little interest or pleasure in doing things: not at all 2. Feeling down, depressed, or hopeless: several days (currently on medication) 3. Trouble falling or staying asleep, or sleeping too much: not at all 4. Feeling tired or having little energy: not at all 5. Poor appetite or overeating: not at all 6. Feeling bad about yourself - or that you are a failure or have let yourself or your family down: not at all 7. Trouble concentrating on things, such as reading the newspaper or watching television: not at all 8. Moving or speaking so slowly that other people could have noticed. Or the opposite - being so fidgety or restless that you have been moving around a lot more than usual: not at all 9. Thoughts that you would be better off or of hurting yourself in some way: not at all Total score: 1 Depression Screening Interpretation: Negative Depression Screening Done: Yes Source: Developed by Drs. Fermin Quiñonez, Sara Gonzalez, Nish Hernandez and colleagues, with an educational isiah from [employer]. Thrive Questionnaire Date Thrive assessed: 05/24/24 I am a: Patient What is your living situation today?: I have a steady place to live Within the past 12 months, did the food you bought not last and you didn't have the money to get more?: Never true Within the past 12 months, did you worry whether your food would run out before you got money to buy more?: Never true Do you have trouble paying for medicines?: No Do you have trouble getting transportation to medical appointments?: No Do you have trouble paying your heating and electricity bill?: No Do you have trouble taking care of your child, family member or friend?: No Do you have trouble with day-to-day activities such as bathing, preparing meals, shopping, managing finances, etc.?: No Are you currently unemployed and looking for a job?: No Are you interested in more education?: No Please select the resources that you would like help with: None Currently or been in a relationship where the following occur: No concerns reported THRIVE Score: 0 AUDIT C Alcohol Use Questionnaire (AUDIT-C) 1. How often do you have a drink containing alcohol?: Never Total Score: 0 Score Reviewed/Action Taken: Yes (score reviewed) SHAJI-7 AMB Questionnaire SHAJI-7 Date SHAJI - 7 assessed: 05/24/24 Feeling nervous, anxious, or on edge: 1 = Several days (currently on medication) Not being able to stop or control worryin = Not at all Worrying too much about different things: 0 = Not at all Trouble relaxin = Not at all Being so restless that it is hard to sit still: 0 = Not at all Becoming easily annoyed or irritable: 0 = Not at all Feeling afraid as if something awful might happen: 0 = Not at all Total SHAJI-7 score (0-4 normal; 5-9 mild; 10-14 moderate; 15-21 severe): 1 Source: Developed by Drs. Fermin Quiñonez, Sara Gonzalez, Nish Hernandez and colleagues, with an educational isiah from [employer]. Physical exam (Primary Care) Vital Signs: Last Vital Signs Temp 96.2 F L 05/24/24 11:26 Pulse 81 05/24/24 11:26 BP 110/80 05/24/24 11:26 Pulse Ox 97 05/24/24 11:26 Oxygen Delivery Method Room Air 05/24/24 11:26 Care Plan Goal for BP management: at Goal <130/80 BMI result Body Mass Index 29.9 BMI Assessment/Plan discussion: High BMI High, discussed plan: lifestyle, weight reduction, dietary, physical activity and alcohol moderation Tobacco/Smoking Status: Tobacco use Status Tobacco use date assessed 05/24/24 05/24/24 11:33 Patient Tobacco Use Status Former Tobacco user 05/24/24 11:33 Tobacco use type Cigarette 05/24/24 11:33 e-Cigarette/Vaping Use Never Used 05/24/24 11:33 PHQ-9: PHQ-9 Score PHQ-9: Total score 1 05/24/24 11:33 Depression Screening Interpretation: Negative Thrive Assessment: Date of Thrive Assessment Date Thrive assessed 05/24/24 05/24/24 11:33 Currently or been in a relationship where the following occur: No concerns reported Coding Level of Care Code Est Pt Level 4 (49122) Complex EM visit Add On G2211 Diagnoses Asthma J45.909 Bronchitis J40 Allergic rhinitis J30.9 Anxiety F41.9 Major depression F32.9 Assessment & Plan Assessment & Plan (1) Asthma: Comment: HE HAS HAD SYMPTOMS OF CHRONIC BRONCHIAL ASTHMA, GOING ALONG WITH CHRONIC ALLERGIC RHINITIS/SINUSITIS. ADVISED HIM TO USE ALBUTEROL 2 PUFFS Q 4-6 HOURS P.R.N.. BUT ALSO EDUCATED THAT HE SHOULD NOT HAVE TO USE ALBUTEROL JUST FOR ANXIETY ATTACKS. HE WAS EDUCATED AND REASSURED, THOROUGHLY. Code(s): J45.909 - Unspecified asthma, uncomplicated Category: Medical Plan: Patient with history of asthma has albuterol at home. On exam there is no wheezing. Will refer to pulmonology for further evaluation management. Condition is chronic and stable continue to monitor. (2) Bronchitis: Code(s): J40 - Bronchitis, not specified as acute or chronic Category: Medical Plan: Patient with URI symptoms over the past few weeks after traveling from [place]. Patient most likely bronchitis. Will obtain chest x-ray to evaluate for possible pneumonia although less likely. Patient declined COVID/RSV/flu swab. Patient will be started on Augmentin, prednisone, Claritin D. Referral to pulmonology as well. Will continue to monitor. (3) Allergic rhinitis: Comment: CHRONIC ALLERGIC RHINOSINUSITIS. HAS BEEN FOLLOWED UP BY DR. MALLADI FOR MANY YEARS . WAS ON IMMUNOTHERAPY FOR 10-12 YEARS WHICH HAS BEEN OF STOPPED. ADVISED TO CONTINUE USING FLONASE-50 2 SPRAY IN EACH NOSTRIL DAILY Code(s): J30.9 - Allergic rhinitis, unspecified Category: Medical Plan: Patient to be started on Claritin D. Condition is chronic and stable will continue to monitor. (4) Anxiety: Comment: PATIENT DOES HAVE HISTORY OF CHRONIC ANXIETY AND SOME DEPRESSION. I HAVE TRIED TO REASSURE HIM THAT FROM PULMONARY POINT OF VIEW HE IS FINE. TALKED TO HIM ABOUT ANXIETY AND PANIC CONTROL. ADVISE THAT HE SHOULD CONTINUE FOLLOW-UP WITH MENTAL HEALTH TEAM. Code(s): F41.9 - Anxiety disorder, unspecified Category: Medical Plan: Condition is chronic and stable continue to monitor. (5) Major depression: Code(s): F32.9 - Major depressive disorder, single episode, unspecified Category: Medical Plan: Condition is chronic and stable continue to monitor. Plan Plan - Order a chest X-ray to evaluate for possible infection or other respiratory pathology. - Initiate antibiotic therapy with Augmentin. - Prescribe prednisone for inflammation management. - Recommend Claritin D for additional symptom relief. - Provide a referral to pulmonology for further evaluation and management. Orders: Orders XR chest 2V Today R05.9 - Cough, unspecified Referrals Pulmonology Referral J45.909 - Unspecified asthma, uncomplicated Medications: New albuterol sulfate 90 mcg/actuation 1 inh inhalation QID PRN 6.7 grams 0RF shortness of breath or wheezing amoxicillin-pot clavulanate 875-125 mg 1 tab PO BID 20 tabs 0RF 10 days prednisone 40 mg (2 x 20 mg) PO DAILY 10 tabs 0RF 5 days loratadine-pseudoephedrine 5-120 mg ER (Claritin-D 12 Hour) 1 tab PO Q12H PRN 30 tabs 1RF allergy symptoms Patient Instructions: Patient Instructions - Begin taking Augmentin as prescribed for possible bacterial bronchitis infection. - Use prednisone for managing inflammation as directed. - Take Claritin D for three days to help with congestion. - Follow up with a chest X-ray to check for lung infection. - Attend the scheduled appointment with Dr. Vazquez. - Monitor symptoms and seek immediate care if they worsen or fail to improve. Scribe Plan - Not visible on output: History of Present Illness The patient is a 63-year-old male presenting with persistent respiratory symptoms. He has a history of asthma and allergic rhinitis, previously managed with albuterol and Symbicort, which are currently ineffective. Approximately two months ago, he experienced wheezing and was consulted at the urgent care in January. Recently, he reports an uncontrollable cough and the expectoration of thick yellow sputum of a few days' duration. Symptoms include nocturnal and daytime wheezing and dyspnea. There have been no fevers, orthopnea, or peripheral edema. He took leftover antibiotics from a previous prescription, which temporarily improved his symptoms before they returned. He reported recent travel to [place] and exposure to a partner with flu-like illness, though he denies developing similar symptoms himself. Social History - Recent travel: Returned from [place] on the ; partner exhibited flu-like symptoms shortly after. - No additional social determinants of health were discussed. Review of Systems - Respiratory: Reports persistent cough, wheezing, and dyspnea. Denies fever or chest pain. - Gastrointestinal: Denies abnormalities. - Genitourinary: Denies abnormalities. Physical Exam Appearance: Alert. Oriented X3. No acute distress. Head: Normal external exam. Normocephalic. Atraumatic. Eyes: Pupils are equal, round, and reactive to light. Extraocular movements intact. Conjunctiva and sclera normal. Eyelids normal. Ears: External auditory canal normal. Tympanic membranes normal. Throat: Pharynx normal. Uvula midline. Moist mucous membranes. Neck: Normal inspection. Neck supple. Full range of motion. No adenopathy. Thyroid Normal. No meningeal signs. No neck mass noted. Cardiovascular: Normal heart rate and rhythm. Heart sound normal. No murmurs noted. Pulses normal throughout. Respiratory: Wheezing noted. No respiratory distress. Painless inspiration. Breath sounds normal. No rales/rhonchi noted. Chest nontender. No accessory muscle usage noted or decreased air movement noted. Back: Full range of motion noted. Skin: Skin warm and dry. Normal skin color. Normal skin turgor. No rashes/lesions/lacerations noted. Extremities: Extremities exhibit normal range of motion. Extremities nontender. Neuro: Oriented X 3. No motor deficit. No sensory deficit. Reflexes normal. Plan - Order a chest X-ray to evaluate for possible infection or other respiratory pathology. - Initiate antibiotic therapy with Augmentin. - Prescribe prednisone for inflammation management. - Recommend Claritin D for additional symptom relief. - Provide a referral to pulmonology for further evaluation and management. Patient was informed and verbally consented to the use of an ambient scribe for clinic note documentation during this visit. Discussion Notes I discussed with the patient the likely recurrence of respiratory symptoms related to asthma and potential bacterial infection. We agreed on a management plan that includes antibiotic therapy with Augmentin, a course of prednisone, and the use of Claritin D to help alleviate symptoms. I emphasized the importance of the chest X-ray to rule out pneumonia and other infections. The patient was informed of the follow-up appointment with Dr. Vazquez and understood the potential need for further testing, such as pulmonary function tests, if symptoms persist. We also covered how Claritin D might cause dryness but can alleviate sinus congestion. The patient expressed understanding and agreement with the plan of care. Patient Instructions - Begin taking Augmentin as prescribed for possible bacterial bronchitis infection. - Use prednisone for managing inflammation as directed. - Take Claritin D for three days to help with congestion. - Follow up with a chest X-ray to check for lung infection. - Attend the scheduled appointment with Dr. Vazquez. - Monitor symptoms and seek immediate care if they worsen or fail to improve.
[2024-05-24 11:26] VITALS: BP 110/80; PULSE 81; TEMP 35.7; O2SAT 97; BMI 29.9
--- OUTSIDE RECORDS SUMMARY | 2024-05-24 14:57 | XMS_ITS | Patient Health Record ---
Author Organization [facility] Address [address] [place] [address] Care Team Providers Care Chemical Supervisor Name Role Phone KEEGAN BENDER Primary Care Provider Fermin Sandoval Unavailable [phone] ALLERGIES Allergen (clinical drug ingredient) Drug/Non Drug Allergy documented on EMR Reaction Allergy Type Onset Date Status Ragweed Unknown Allergy Active Pollen Pollen Unknown Allergy Active Dust Mites Unknown Allergy Active REASON FOR REFERRAL No Information MEDICATIONS Medication SIG (Take, Route, Frequency, Duration) Notes Start Date End Date Status Wellbutrin Active lamoTRIgine 100 MG TAKE 1 TABLET EVERY DAY Oral for 30 Active LORazepam 0.5 MG (Schedule IV Drug) T FOX 1 TABLET BY MOUTH TWICE A DAY NEEDED FOR ANXIETY Oral as lneeded Rarely uses Active IMMUNIZATIONS Vaccine Route Administration Date Status Comme nts Flu vaccine no Preserv 3 and > Unknown 01/10/2015 Admin istered Influenza Unknown 03/20/2021 Refused SOCIAL HISTORY Tobacco Use: Social History Observation Description Date Details (start date - stop date) Former Smoker NA - NA Sex Assigned At : Social History Observation Description Sex Assigned At Unknown Tobacco Use/Smoking Question Answer Notes Patient is a former smoker How long has it been since you last smoked? 1-5 years PROBLEMS Problem Type ICD Code Onset Dates Problem Status W/U Status Risk SNOMED Code Notes Problem Encounter for screening for malignant neoplasm of colon (Z12.11) Active confirmed 702634464 Problem Encounter for screening for malignant neoplasm of rectum (Z12.12) Active confirmed Screening fo r malignant neoplasm of rectum (823451041) Problem Preprocedural examination (Z01.818) Active confirmed 73640160 Problem History of colon polyps (Z86.010) Active confirmed 980148449 Problem Fatty liver (K76.0) Active confirmed 256074576 Problem Diverticulosis of colon (K57.30) Active confirmed Diverticulosi s of colon (425454352) PLAN OF TREATMENT Pending Test Test Name Order Date Pathology 04/16/2021 Future Test Test Name Order Date COLONOSCOPY 06/14/2015 COLONOSCOPY 03/20/2021 Insurance Providers Payer Name Payer Address Payer Phone Subscriber Number Group Number Insured Name Patient Relationship to Insured Coverage Start Date Coverage End Date [facility] [address] [place] [phone] [id number] ALEXANDRO VALLEJO Self - patient is the insured MEDICAL (GENERAL) HISTORY Medical History History ICD Code Denies CA,DM,CVA,Lung disease,renal dise ase GERD-rarely uses PPI Depression Fatty liver on [place] in 2014 but nor mal LFT's in 2013 Colonoscopies age 32(in [facility]) and approx 2009(in [place]) with removal of polyps; colonoscopy 08/2015 with only a hyperplastic polyp Asthma Surgical History Surgery Date(Month/Year) Sinus surgery x2 Varicocele x 2
== END 2024-05-24 11:46 | disposition home or self-care (01) ==
PROVIDERS: PCP Internal Medicine; Visit Provider Physician Assistant Medical
DX: J45.909 Unspecified asthma, uncomplicated (principal); J30.9 Allergic rhinitis, unspecified; F41.9 Anxiety disorder, unspecified; F32.9 Major depressive disorder, single episode, unspecified

== ENCOUNTER → 2024-05-24 11:56 | Outpatient (BNV) | payer OTHER, SELFPAY | PROVIDERS: PCP Internal Medicine; Visit Provider Radiology Diagnostic Radiology | DX: R05.9 Cough, unspecified (principal) | CPT/HCPCS: 71046 ==

== ENCOUNTER 2024-05-28 10:17 | Outpatient (AMB) | payer OTHER, SELFPAY ==
--- NOTE | 2024-05-28 10:25 | MHC.PC.OV ---
Vital Signs 05/28/24 10:26 Height 5 ft 9 in Weight 203 lb 8 oz BMI 30.0 BP 116/76 Blood Pressure Location Lt brachial Position Sitting Pulse 81 Pulse Source Pulse Oximeter Temp 97.1 F Temp Source Skin Pulse Oximetry (%) 97 Oxygen Delivery Method Room Air Intake Visit Reasons: Breathing Problems Intake Note: Patient is here to follow up on Breathing Problems. Restaurant Bartender Required: No Major League Baseball Player: Not Required per policy Accompanied by: Self / Same As Patient Allergies levofloxacin Allergy (Severe, Verified 05/28/24 10:38) Difficulty Breathing Medication List - Last Reconciled 05/28/24 by MIGUEL Mcclain albuterol sulfate 90 mcg/actuation 1 inh inhalation QID PRN albuterol sulfate 90 mcg/actuation 2 inhalations inhalation Q6-8H PRN 1 month amoxicillin-pot clavulanate 875-125 mg 1 tab PO BID 10 days budesonide-formoterol 160-4.5 mcg/actuation (Symbicort) 2 puffs inhalation BID bupropion HCl XL 150 mg PO DAILY yyyyegcwik-msdgabb-gzqpmczm 50-325-40 mg 1 cap PO .Q 12 hours PRN dupilumab (Dupixent) mg subcut Q2W lamotrigine 50 mg PO DAILY loratadine-pseudoephedrine 5-120 mg ER (Claritin-D 12 Hour) 1 tab PO Q12H PRN lorazepam 0.5 mg PO BID PRN naproxen (Naprosyn) 500 mg PO Q12H PRN 30 days omeprazole 40 mg PO DAILY PRN prednisone 10 mg PO DAILY prednisone 40 mg (2 x 20 mg) PO DAILY 5 days tadalafil 20 mg PO ONCE PRN 30 days tamsulosin (Flomax) 0.4 mg PO DAILY tramadol 50 mg PO Q8H PRN 7 days Tobacco use date assessed: 05/28/24 Dental Screening Dental Screen Date: 05/24/24 HPI Breathing Problems HPI Details The patient is 63 y/o male with significant pmh of hypercholesterolemia, asthma, anxiety, major depression, allergic rhinitis reports that he was here in office friday with cold symptoms He was given abt/prednisone/claritin D. he is still taking these medications but feels like his symptoms is not improving ON Friday: The patient came in with reports of wheezing, coughing, nasal congestion Today the patient is complaining of the same symptoms He denies fever, or chills, denies sore throat, headaches, he has a hx of sinus pressure, He reports coming back from [place] from a 3 weeks trip and came down with these symptoms The patient is concerned because he has been having asthma exacerbation frequently Reports that this is his 3rd time being sick already. The patient has an appointment with pulmonology next week Patient complains of on and off wheezes and shortness of breath with exertion. On exam the patient had mild inspiratory wheezes. He was given a DuoNeb treatment in office He reported positive effects. His bilateral nares noted to be swollen almost shut with narrow passages Patient reports that he sees ENT and this is not new for him. Will order Flonase nose spray. The patient is already taking prednisone, he is currently taking Claritin D. reports he is not sure if these medications are working. Discussed with patient about possible trying a different antihistamine. Zyrtec 10 mg was ordered Patient also reported that he feels like he has something to cough up off his chest but can not get it up. Mucinex 600 mg b.i.d. was ordered. The patient was encouraged to drink more fluids and to continue his Augmentin and prednisone as ordered [facility] Medical History GERD (gastroesophageal reflux disease) Anxiety Dyspnea Allergic rhinitis Nocturia Erectile dysfunction due to arterial insufficiency Chronic prostatitis Major depression Eczema craquele History of varicocele Asthma Varicocele present on ultrasound of scrotum Surgical History History of testicular surgery Hx of sinus surgery H/O colonoscopy S/P scrotal varicocelectomy Family History Mother No problems noted. Father No problems noted. 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 Fermin Quiñonez, Sara Gonzalez, Nish Hernandez and colleagues, with an educational isiah from [employer]. Review of Systems Const Details: Denies chills, Denies fatigue, Denies fever(s), Denies headache(s) and Denies weakness HEENT Denies change in vision, Denies dizziness, Denies headache(s), Denies hearing loss, + nasal congestion, Denies sinus pain, + sinus pressure and Denies sore throat Card Denies chest pain, Denies lightheadedness, +sob with exertion and Denies other (palpitations) Resp +cough, +sob with exertion and +wheezing GI Denies abdominal pain, Denies melena, Denies hematochezia, Denies change in bowel habits, Denies dyspepsia and Denies nausea Denies hematuria and Denies dysuria Musc Denies abnormal gait, Denies myalgias, Denies arthralgias, Denies numbness and Denies tingling Skin/Breast Denies rash, Denies unusual bruising and Denies wounds Neuro Denies abnormal gait, Denies dizziness, Denies headache(s), Denies memory loss, Denies numbness, Denies Sensory deficit (Neuro), Denies tingling and Denies weakness Psych Denies anxiety, Denies depression and Denies memory loss Endo Denies cold intolerance, Denies fatigue, Denies heat intolerance, Denies polydipsia and Denies polyuria Javed/Lymph Denies easy bleeding and Denies easy bruising Aller/Immun + wheezing Physical exam (Primary Care) Vital Signs: Last Vital Signs Temp 97.1 F 05/28/24 10:26 Pulse 81 05/28/24 10:26 BP 116/76 05/28/24 10:26 Pulse Ox 97 05/28/24 10:26 Oxygen Delivery Method Room Air 05/28/24 10:26 BMI result Body Mass Index 30.0 Tobacco/Smoking Status: Tobacco use Status Tobacco use date assessed 05/28/24 05/28/24 10:28 Patient Tobacco Use Status Former Tobacco user 05/28/24 10:28 Tobacco use type Cigarette 05/28/24 10:28 e-Cigarette/Vaping Use Never Used 05/28/24 10:28 Thrive Assessment: Date of Thrive Assessment Date Thrive assessed 05/24/24 05/28/24 10:28 Const Other: General: no acute distress, well developed, alert and awake Nutritional Appearance: well nourished Orientation/consciousness: patient oriented x3 [facility] Head: Yes normocephalic and Yes atraumatic Ears: hearing grossly normal bilaterally and TM's normal bilaterally General nose exam: Normal external nose present and Bilateral nares red/swollen, narrow nasal passages, turbinates boggy Other: frontal and bilaterally sinus pressure on exam Mouth: Normal oral and palatal mucosa present and moist mucous membranes Teeth and gingiva: dentition normal Throat: Yes oropharynx normal Eyes Pupils: Equal, round and reactive pupils present and Pupil accommodation reflex normal EOM: EOMs intact bilaterally Neck Neck: Yes normal visual inspection, Yes no lymphadenopathy and Yes trachea midline Thyroid: Thyroid normal Carotids: no bruits Lymphatic: no lymphadenopathy noted Chest Chest palpation & inspection: normal inspection of the chest Resp Effort & Inspection: mild sob with exertion Auscultation: inspiratory wheezes throughout Cardio Rate: regular rate Rhythm: regular rhythm Heart sounds: S1 normal heart sound present, S2 normal heart sound present, no gallops, no murmurs and no rubs Bruits: no abdominal aortic bruits and no carotid bruits GI Palpation (GI): No Abdominal aortic bruit present, Soft to palpation, nontender, No hepatosplenomegaly present and No Rebound tenderness present Auscultation: normal bowel sounds General: Yes no CVA tenderness Skin General: warm and dry. Normal skin color. Normal skin turgor Lesions: no lesions Nails: normal Neuro General: patient oriented x3, gait normal Cranial nerves: Yes Equal, round and reactive pupils present Cognition (Neuro): normal cognition Gait exam (Neuro): Normal gait present Extrem General: Yes normal to inspection, No edema and No calf tenderness Psych Appearance: grossly normal Affect: normal affect Attitude: cooperative Thought process: Normal thought process present Coding Level of Care Code Est Pt Level 3 (06353) Diagnoses Mild asthma with exacerbation, unspecified whether persistent J45.901 Asthma persistence: unspecified Asthma severity: mild Cough, unspecified type R05.9 Cough type: unspecified Rhinosinusitis J32.9 Time Spent (min) 29 Assessment & Plan Assessment & Plan (1) Asthma exacerbation: Code(s): J45.901 - Unspecified asthma with (acute) exacerbation Category: Medical Qualifiers: Asthma persistence: unspecified Asthma severity: mild Qualified Code(s): J45.901 - Unspecified asthma with (acute) exacerbation Plan: duoneb tx given in office continue home inhalers continue prednisone and augmentin as ordered reinforced the need for fluids hydration (2) Cough: Code(s): R05.9 - Cough, unspecified Category: Medical Qualifiers: Cough type: unspecified Qualified Code(s): R05.9 - Cough, unspecified Plan: mucinex odered encouraged fluids (3) Rhinosinusitis: Code(s): J32.9 - Chronic sinusitis, unspecified Category: Medical Plan: He is already taking augmentin Flonase nose spray added Plan Follow up with PCP as scheduled next week Orders: Orders AMB Nebulizer Treatment 05/28/24 R06.02 - Shortness of breath Medications: New guaifenesin ER (Mucinex) 600 mg PO Q12H PRN 30 tabs 0RF congestion ipratropium-albuterol 0.5 mg-3 mg(2.5 mg base)/3 mL 3 mL inhalation ONCE 3 mL 0RF R06.02 - Shortness of breath fluticasone propionate 50 mcg/actuation (Flonase Allergy Relief) administer into each nostril 1 spray intranasal BID 16 grams 0RF cetirizine (Zyrtec) 10 mg PO DAILY 30 tabs 0RF
[2024-05-28 10:26] VITALS: BP 116/76; PULSE 81; TEMP 36.2; O2SAT 97
--- OUTSIDE RECORDS SUMMARY | 2024-05-28 11:01 | XMS_ITS | Encounter Summary ---
Author Organization [employer] Address [address] [facility] [address] [place] [address] Care Team Providers Care Rn Lvn Name Role Phone Unavailable Primary Care Provider Unavailabl e Encounter Details Date Type Department Care Team (Latest Contact Info) Description 02/23/[address] [facility] CONVERSIONS Dental, Provider, DDS Social History [...]
--- OUTSIDE RECORDS SUMMARY | 2024-05-28 11:01 | XMS_ITS | Clinical Summary ---
Author Organization [employer] Address [address] [facility] [address] [place] [address] Care Team Providers Care Assistant Director Of Security Name Role Phone Unavailable Primary Care Provider [...] 1974 DTaP/Tdap/Td Vaccines (1 - Tdap) 1981 Pneumococcal Vaccine: 50+ Ye ars (1 of 1 - PCV) 2012 Zoster Vaccines (1 of 2) 2012 COVID-19 [...] 5 Years) and At-Risk Patients (6 to 49) Years) Aged Out No longer eligible b ased on patient's age to complete this topic RSV under 20 months Aged Out No longe r eligible based on patient's age to complete this topic Rotavirus Vaccines Aged Out No longer eligible based on patient's age to complete this topic
--- OUTSIDE RECORDS SUMMARY | 2024-05-28 11:01 | XMS_ITS | Encounter Summary ---
Author Organization [employer] Address [address] [facility] [address] [place] [address] Care Team Providers Care Manager Supply Chain Name Role Phone Unavailable Primary Care Provider Unavailabl e Encounter Details Date Type Department Care Team (Latest Contact Info) Description 01/26/2019 Abstract [facility] CONVERSIONS Dental, Provider, DDS Social History Tobacco [...]
== END 2024-05-28 11:08 | disposition home or self-care (01) ==
PROVIDERS: PCP Internal Medicine
DX: J45.901 Unspecified asthma with (acute) exacerbation (principal); R05.9 Cough, unspecified; J32.9 Chronic sinusitis, unspecified

== ENCOUNTER → 2024-05-28 10:17 | Outpatient (BNVA) | payer OTHER, SELFPAY | PROVIDERS: PCP Internal Medicine | DX: J45.901 Unspecified asthma with (acute) exacerbation (principal); R05.9 Cough, unspecified; J32.9 Chronic sinusitis, unspecified | CPT/HCPCS: 99212 ==

== ENCOUNTER 2024-06-01 09:35 | Outpatient (AMB) | payer OTHER, SELFPAY ==
[2024-06-01 09:44] VITALS: BP 110/70; PULSE 106; O2SAT 97; BMI 31.0
--- NOTE | 2024-06-01 09:44 | A.OFFVIS_ITS ---
Vital Signs 06/01/24 09:44 Height 5 ft 9 in Weight 210 lb BMI 31.0 BP 110/70 Blood Pressure Location Lt brachial Position Sitting Pulse 106 H Pulse Source Pulse Oximeter Pulse Oximetry (%) 97 Oxygen Delivery Method Room Air Intake Visit Reasons: asthma Intake Note: pt is here for follow up and states he has been flare up of asthma for since December. On prednisone 20mg bid for 5 days, on /off for 6 weeks. wheezy, tight in chest, nasal congestion Public Works Manager Required: No Allergies levofloxacin Allergy (Severe, Verified 06/01/24 10:35) Difficulty Breathing Medication List - Last Reconciled 06/01/24 by Adrienne Trivedi MD albuterol sulfate 90 mcg/actuation 2 inhalations inhalation Q6-8H PRN 1 month amoxicillin-pot clavulanate 875-125 mg 1 tab PO BID 10 days budesonide-formoterol 160-4.5 mcg/actuation (Symbicort) 2 puffs inhalation BID bupropion HCl XL 150 mg PO DAILY zmnqqtdtdu-ooywubf-mjwvuhth 50-325-40 mg 1 cap PO .Q 12 hours PRN cetirizine (Zyrtec) 10 mg PO DAILY dupilumab (Dupixent) mg subcut Q2W fluticasone propionate 50 mcg/actuation (Flonase Allergy Relief) 1 spray intranasal BID guaifenesin ER (Mucinex) 600 mg PO Q12H PRN lamotrigine 50 mg PO DAILY lorazepam 0.5 mg PO BID PRN naproxen (Naprosyn) 500 mg PO Q12H PRN 30 days omeprazole 40 mg PO DAILY PRN prednisone 10 mg PO DAILY prednisone 40 mg (2 x 20 mg) PO DAILY 5 days tadalafil 20 mg PO ONCE PRN 30 days tamsulosin (Flomax) 0.4 mg PO DAILY PRN tramadol 50 mg PO Q8H PRN 7 days Do you need a note to return to daycare/school/sports/work: No HPI HPI asthma: Details: 63 years old gentleman, who works on the [employer] , at [employer] , but mostly in summer. He has history of smoking for 15 years but quit back in 2022. He has been treated for chronic allergic rhinitis/sinusitis, for the past many years. HAS BEEN TREATED WITH IMMUNOTHERAPY FOR 12-15 YEARS IN THE PAST. He was seen by me in 2022 for possibility of asthma, because he was having intermittent bouts of cough and wheezing. IS PULMONARY FUNCTION TEST WAS ESSENTIALLY NORMAL, But because of his ongoing symptoms he was started on Symbicort 160-4.52 puffs b.i.d., .to use p.r.n. for increased symptoms And also advised to use albuterol p.r.n.. For his chronic sinus problem he has been seeing Dr. Garcia Rubi for the last many years. Now since December 2023, he has had increased nasal congestion, cough and shortness of breath. He has been seen in urgent care clinics and emergency room and prescribed courses of antibiotic especially Augmentin, and also short courses of prednisone at least 3 times. Today actually he just finished a recent course of prednisone for 5 days. Complains of ongoing nasal congestion with cough and wheezing. 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 On 02/09/2024, he had a CBC at [facility], and I notice that his eosinophil count was in normal range. [facility] Medical History Sinusitis GERD (gastroesophageal reflux disease) Anxiety Dyspnea Allergic rhinitis Nocturia Erectile dysfunction due to arterial insufficiency Chronic prostatitis Major depression Eczema craquele History of varicocele Asthma Varicocele present on ultrasound of scrotum Surgical History History of testicular surgery Hx of sinus surgery H/O colonoscopy S/P scrotal varicocelectomy Family History Mother No problems noted. Father No problems noted. 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[employer] Cognitive needs: No Hearing needs: No Vision needs: No Review of Systems Const All systems reviewed & are unremarkable except as noted in HPI and below Eyes Reports no additional complaints ENT Reports nasal congestion, Reports nasal discharge and Reports post nasal drip Card Denies chest pain at rest, Denies irregular heart rhythm and Denies leg edema Resp Reports as per HPI GI Reports no additional complaints Reports other (Being treated for BPH) Musc Reports no additional complaints Skin/Breast Reports system reviewed and no additional complaints, except as documented Neuro Reports no additional complaints Psych Reports anxiety and Reports depression Endo Reports no additional complaints Javed/Lymph Reports no additional complaints Physical Exam Vital Signs: Last Vital Signs Pulse 106 H 06/01/24 09:44 BP 110/70 06/01/24 09:44 Pulse Ox 97 06/01/24 09:44 Oxygen Delivery Method Room Air 06/01/24 09:44 BMI result Body Mass Index 31.0 Const General: healthy appearing, comfortable, no acute distress, alert and awake Orientation/consciousness: patient oriented x3 HEENT Head: Yes normal to inspection General nose exam: No nasal polyps present, No nasal discharge present and Other nasal findings present (Mild chronic nasal congestion is noted) Face and sinus: Yes sinuses nontender Mouth: oropharynx normal Throat: Yes posterior oropharynx normal Eyes General: appearance normal, both eyes and all related structures Neck Neck: Yes normal visual inspection, Yes no lymphadenopathy, Yes trachea midline and Yes no JVD Thyroid: Thyroid normal Chest Chest palpation & inspection: normal inspection of the chest, normal palpation of entire chest wall and no tenderness Resp Other: Percussion note is resonant, has good breath sounds on both sides, no wheezes or rhonchi are heard. Cardio Palpation: normal PMI Rate: regular rate Rhythm: regular rhythm Heart sounds: Gallop heart sound present and Murmur heart sound present Peripheral pulses: Peripheral pulses 2+ throughout GI Palpation (GI): Soft to palpation, Tenderness to palpation present (GI), No hepatosplenomegaly present and Palpable mass present Auscultation: normal bowel sounds Back/Spine/Pelvis Thoracic/Lumbar Spine: thoracic and lumbar spine normal to inspection Skin General skin exam: no rashes or lesions noted Neuro General: patient oriented x3 and no focal motor deficits Cranial nerves: Yes CN's II-XII intact bilaterally Extrem General: Yes normal to inspection, Yes no clubbing, cyanosis or edema and Yes no calf tenderness Psych Speech and movement: Normal speech and movement present Assessment & Plan Assessment & Plan (1) Rhinosinusitis: Comment: As noted in the history, he has longstanding chronic rhinosinusitis, it may be allergic plus secondary to ongoing low-grade infection. Code(s): J32.9 - Chronic sinusitis, unspecified Category: Medical Plan: He should have regular visits with his ENT specialist, and tells me that he has appointment with Dr. Rubi in the near future. Flonase nasal spray 2 spray. In each nostril daily Frequent saline sprays in both nostrils. Use Medi pot or a regular part for steam inhalation 2 or 3 times a day. I ordered x-ray of the sinuses, I told him that short courses of antibiotics is not going to be helpful . * PATIENT ALSO TALKED TO DR. RUBI , IS ENT FRIEND , AND HE ACTUALLY HAS ORDERED CT SCAN OF THE SINUSES. I will wait till he is seen by Dr. Rubi, and then he may be started on a broad-spectrum antibiotic for several weeks. (2) Asthma: Comment: HE HAS HAD SYMPTOMS OF CHRONIC BRONCHIAL ASTHMA, GOING ALONG WITH CHRONIC ALLERGIC RHINITIS/SINUSITIS. ADVISED HIM TO USE ALBUTEROL 2 PUFFS Q 4-6 HOURS P.R.N.. BUT ALSO EDUCATED THAT HE SHOULD NOT HAVE TO USE ALBUTEROL JUST FOR ANXIETY ATTACKS. HE DOES HAVE SYMBICORT 160-4.5, MAY CONTINUE TO USE 2 PUFFS B.I.D. WHEN HE DOES HAVE WHEEZING ATTACKS. AND SHOULD MAINLY DEPEND UPON ALBUTEROL P.R.N.. OK TO USE MUCINEX 600 MG B.I.D. P.R.N. I EDUCATED HIM ABOUT THE TREATMENT OF ASTHMA . I EXPLAINED THAT HE IS ON DUPIXENT INJECTIONS, AND IF INDEED HE DID HAVE ASTHMA IT SHOULD BE ALL UNDER CONTROLLED WITH THIS MEDICINE. Code(s): J45.909 - Unspecified asthma, uncomplicated Category: Medical Plan: OK TO USE SYMBICORT 160-4.5 1 OR 2 PUFFS B.I.D. AND ALBUTEROL HFA 2 PUFFS Q 4-6 HOURS P.R.N. (3) Anxiety: Comment: PATIENT DOES HAVE HISTORY OF CHRONIC ANXIETY AND SOME DEPRESSION. I HAVE TRIED TO REASSURE HIM THAT FROM PULMONARY POINT OF VIEW HE IS FINE. TALKED TO HIM ABOUT ANXIETY AND PANIC CONTROL. ADVISED THAT HE SHOULD CONTINUE FOLLOW-UP WITH MENTAL HEALTH TEAM , CONTINUE TO TAKE BUPROPION HCL 150 MG DAILY Code(s): F41.9 - Anxiety disorder, unspecified Category: Medical Plan: HAD A GOOD DISCUSSION WITH HIM AND REASSURED HIM. CONTINUE USING BUPROPION HCL 150 MG DAILY HE ALSO HAS LORAZEPAM 0.5 MG ON HAND AND MAY USE B.I.D. P.R.N.. Orders: Orders XR sinus <3V Today Adrienne Trivedi MD J32.9 - Chronic sinusitis, unspecified, J45.909 - Unspecified asthma, uncomplicated Medications: Changed From tamsulosin (Flomax) 0.4 mg PO DAILY 90 caps 1RF To tamsulosin (Flomax) 0.4 mg PO DAILY PRN Horace Dudley MD Coding Level of Care Code Est Pt Level 4 (07958) Diagnoses Rhinosinusitis J32.9 Asthma J45.909 Anxiety F41.9
== END 2024-06-01 10:27 | disposition home or self-care (01) ==
PROVIDERS: PCP Internal Medicine; Visit Provider Internal Medicine
DX: J32.9 Chronic sinusitis, unspecified (principal); J45.909 Unspecified asthma, uncomplicated; F41.9 Anxiety disorder, unspecified
CPT/HCPCS: 99214

== ENCOUNTER → 2024-06-01 09:35 | Outpatient (BNVA) | payer OTHER, SELFPAY | PROVIDERS: PCP Internal Medicine; Visit Provider Internal Medicine | DX: J32.9 Chronic sinusitis, unspecified (principal); J45.909 Unspecified asthma, uncomplicated; F41.9 Anxiety disorder, unspecified; Z87.891 Personal history of nicotine dependence | CPT/HCPCS: 99212 ==

== ENCOUNTER → 2024-06-03 08:34 | Outpatient (BNVA) | DX: F32.9 Major depressive disorder, single episode, unspecified (principal); E78.00 Pure hypercholesterolemia, unspecified; J30.9 Allergic rhinitis, unspecified | CPT/HCPCS: 96127 ==

== ENCOUNTER 2024-07-14 07:22 | Outpatient (REF) | payer OTHER, SELFPAY ==
--- NOTE | ~2024-07-14 | CT_ITS ---
EXAMINATION: CT SINUS WITHOUT CONTRAST CLINICAL INFORMATION: Polyploid of nasal cavity COMPARISON: July 16, 2023. TECHNIQUE: Contiguous axial images through the paranasal sinuses using 2 mm collimation with bone and soft tissue algorithm. Sagittal and coronal reformatted images acquired. This CT examination was performed using dose optimization techniques as appropriate, variously including the following: *Automated exposure control *Adjustment of mA and/or kV according to patient size (this includes techniques or standardized protocols for targeted exams where dose is matched to indication/reason for exam; i.e. extremities or head) *Use of iterative reconstruction technique. DLP: 113 mGy centimeter. FINDINGS: The paranasal sinuses are well pneumatized. Status post medial wall antrostomy, uncinectomy, right maxillary sinus. Mild polypoid mucosal thickening in the superior and medial juarez of the right maxillary sinus. Small retention cysts versus polypoid focal 3 mm calcification in the inferior right maxillary sinus. Polypoid mucosal thickening in the superior medial and lower lateral juarez,, left maxillary sinus. Polypoid mucosal thickening within the middle turbinates, right greater than the left. Mucosal thickening inferior and lateral wall of the nasal cavity. Nasal cavity, vestibule and nostrils are patent. Old traumatic deformities, nasal bones. Nasal septum and vomer are intact with a polypoid mucosal thickening. Polypoid mucosal thickening in the ethmoid air cells and to the right frontal ethmoid recess. No air-fluid levels. There is pneumatization of the apophysis claudia aida and the left anterior clinoid process. The intrasinus septum dose of the sphenoid sinus attached to the left posterior wall distant from the carotid canal. Vidian canals type I bilaterally. The ethmoid fovea is intact. The orbits are intact. No masses or fluid collections in the intraconal or extraconal compartments of the orbits. Tympanic cavities and mastoid cells are aerated. No masses in the pterygopalatine fossa fissure or foramina. Carotic canals are intact. Calcified plaques in the cavernous and supracavernous segments of the ICA. Skull base, nasopharynx, oropharynx demonstrated no gross masses.. CT/CT sinus wo IV con IMPRESSION: Polypoid pattern paranasal sinus disease, mild to moderate similar since prior exam. Old traumatic deformities, nasal bones. Post surgical changes, right maxillary sinus. Electronically signed by: Colten Noel MD 07/14/2024 08:41 AM EDT
--- OUTSIDE RECORDS SUMMARY | 2024-07-14 07:24 | XMS_ITS | Patient Health Record ---
Author Organization [facility] Address [address] [place] [address] Care Team Providers Care Junior Brand Manager Name Role Phone KEEGAN BENDER Primary Care Provider Fermin Sandoval Unavailable [phone] Allergies Allergen (clinical drug ingredient) Drug/Non Drug Allergy documented on EMR Reaction Allergy Type Onset Date Status Ragweed Unknown Allergy Active Pollen Pollen Unknown Allergy Active Dust Mites Unknown Allergy Active Reason For Referral No Information Medications Medication SIG (Take, Route, Frequency, Duration) Notes Start Date End Date Status Wellbutrin Active lamoTRIgine 100 MG TAKE 1 TABLET EVERY DAY Oral for 30 Active LORazepam 0.5 MG (Schedule IV Drug) T FOX 1 TABLET BY MOUTH TWICE A DAY NEEDED FOR ANXIETY Oral as lneeded Rarely uses Active Immunizations Vaccine Route Administration Date Status Comme nts Flu vaccine no Preserv 3 and > Unknown 01/10/2015 Admin istered Influenza Unknown 03/20/2021 Refused Social History Tobacco Use: Social History Observation Description Date Details (start date - stop date) Former Smoker NA - NA Tobacco Use/Smoking Question Answer Notes Patient is a former smoker How long has it been since you last smoked? 1-5 years Section Notes: Smoker; no sig alcohol Smoker; no sig alcohol Problems Problem Type SNOMED Code ICD Code Onset Dates Problem Status W/U Status Risk Notes Problem 233882354 Encounter for screening for malignant neoplasm of colon (Z12.11) Active confirmed Problem Screening for malignant neoplasm of rectum (566977259) Encounter for screening for malignant neoplasm of rectum (Z12.12) Active confirmed Problem 50706897 Preprocedural examination (Z01.818) Active confirmed Problem 461578337 History of colon polyps (Z86.010) Active confirmed Problem [id number] Fatty liver (K76.0) Active confirmed Problem Diverticulosis of colon (654695932) Diverticulosis of colon (K57.30) Active confirmed Plan Of Treatment Pending Test Test Name Order Date Pathology 04/16/2021 Future Test Test Name Order Date COLONOSCOPY 06/14/2015 COLONOSCOPY 03/20/2021 Insurance Providers Payer Name Payer Address Payer Phone Subscriber Number Group Number Insured Name Patient Relationship to Insured Coverage Start Date Coverage End Date [facility] [address] [place] [address] [id number] ALEXANDRO VALLEJO Self - patient is the insured Medical (General) History Medical History History ICD Code Denies [place],DM,CVA,Lung disease,renal dise ase GERD-rarely uses PPI Depression Fatty liver on the [place] in 2014 but nor mal LFT's in 2013 Colonoscopies age 32(in [facility]) and approx 2009(in [place]) with removal of polyps; colonoscopy 08/2015 with only a hyperplastic polyp Asthma Surgical History Surgery Date(Month/Year) Sinus surgery x2 Varicocele x 2
--- OUTSIDE RECORDS SUMMARY | 2024-07-14 07:24 | XMS_ITS | Encounter Summary ---
Author Organization [employer] Address [address] [facility] [address] [place] [address] Care Team Providers Care Digital Account Supervisor Name Role Phone Unavailable Primary Care Provider Unavailabl e Encounter Details Date Type Department Care Team (Latest Contact Info) Description 02/23/2020 Abstract [facility] CONVERSIONS Dental, Provider, DDS Social History Tobacco [...]
--- OUTSIDE RECORDS SUMMARY | 2024-07-14 07:24 | XMS_ITS | Encounter Summary ---
Author Organization [employer] Address [address] [facility] 7t [place] [address] Care Team Providers Care Social Services Designee Name Role Phone Unavailable Primary Care Provider Unavailabl e Encounter Details Date Type Department Care Team (Latest Contact Info) Description 01/26/2019 Abstract [facility] CONVERSIONS Dental, Provider, DDS Social History [...]
--- OUTSIDE RECORDS SUMMARY | 2024-07-14 07:24 | XMS_ITS | Clinical Summary ---
Author Organization [employer] Address [address] [facility] 7t [place] [address] Care Team Providers Care Student Teaching Coordinator Name Role Phone Unavailable Primary Care Provider [...]
== END 2024-07-14 07:23 | disposition home or self-care (01) ==
LOC: HO.CT 07:22
PROVIDERS: PCP Internal Medicine; Visit Provider Otolaryngology
DX: J33.0 Polyp of nasal cavity (principal)
CPT/HCPCS: 70486

== ENCOUNTER → 2024-07-14 07:24 | Outpatient (BNV) | payer OTHER, SELFPAY | PROVIDERS: PCP Internal Medicine; Visit Provider Radiology Diagnostic Radiology | DX: J33.1 Polypoid sinus degeneration (principal) | CPT/HCPCS: 70486 ==

== ENCOUNTER 2024-08-25 08:50 | Outpatient (AMB) | payer OTHER, SELFPAY ==
--- NOTE | 2024-08-25 08:50 | MHC.OFFVIS ---
Intake Visit Reasons: 6m follow up Intake Note: Patient is present for 6M F/U Urology Medication:NONE Antibiotic Allergy:LEVOFLOXACIN Blood Thinner:NONE Hand Tube Bender Required: No Allergies levofloxacin Allergy (Severe, Verified 08/25/24 08:51) Difficulty Breathing HPI Comments Details: Froilan VALLEJO is a very pleasant male. He is a patient of Dr Suggs. He is seen for the following urologic conditions. - prostatitis - with lower urinary tract symptoms - left orchalgia - left varicocele - erectile dysfunction Telemedicine Evaluation 15 min Consultation [employer] Damien Video Trial 3 days naproxen when prostate flare On demand 20 mg tadalafil successful Minimal issues from left testicle Low libido Testosterone - 10/18 440, 02/18 400 12m f/u Lower urinary tract symptoms Response were altered tamsulosin Chronic pelvic floor pain Para-Prostatic pain bilateral Pelvic floor physical therapy - Interventions - left testicular denervation, 07/18 left epididymectomy - good response to physical therapy Prostatitis/CPPS: Continued response to on demand Cialis They present for further evaluation of, chronic prostatitis. He is currently being treated with has been on abx and NSAID's - good effect - minimal pelvic pressure. Symptoms have been present 05/15 - had urge for many years. Laboratory testing included 09/12 PSA 0.8, 11/14 0.6, 05/20 0.6, 10/18 T 440, 08/19 1.1 Type of prostatitis III - noninflammatory. Erectile dysfunction Progressive Associated conditions include dyslipidemia, hypertension Good response to daily tadalafil PFSH Medical History (Updated 07/06/24 @ 12:50 by Froilan Yuan) Chronic back pain Sinusitis GERD (gastroesophageal reflux disease) Anxiety Dyspnea Allergic rhinitis Nocturia Erectile dysfunction due to arterial insufficiency Chronic prostatitis Major depression Eczema craquele History of varicocele Asthma Varicocele present on ultrasound of scrotum Surgical History History of testicular surgery Hx of sinus surgery H/O colonoscopy (04/16/21) S/P scrotal varicocelectomy Family History Mother No problems noted. Father No problems noted. 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[employer] Cognitive needs: No Hearing needs: No Vision needs: Yes Telehealth Telehealth Telehealth Platform: [employer] Location of provider rendering services: practice address Location of patient: address on file Patient Identification confirmed using: Name, : Yes Telehealth method: video Patient verbally consented to treatment: Yes Patient verbally consented to billing insurance company: Yes Patient informed of any privacy concerns related to visit: Yes Minutes spent on Phone/Video with Pt.: 15 Assessment & Plan Assessment & Plan (1) Acute epididymitis: Code(s): N45.1 - Epididymitis Category: Medical (2) Testicular pain, left: Code(s): N50.812 - Left testicular pain Category: Medical (3) Chronic pelvic pain in male: Code(s): R10.2 - Pelvic and perineal pain; G89.29 - Other chronic pain Category: Medical Plan Twelve month follow-up Naprosyn Medications: New naproxen (Naprosyn) 500 mg PO Q12H 30 days PRN 60 tabs 0RF pain G89.29 - Other chronic pain, R10.2 - Pelvic and perineal pain, S39.91XA - Unspecified injury of abdomen, initial encounter Patient Instructions: This note is constructed using voice recognition software. While every effort has been made to ensure accuracy backing in machine tender errors may have been included. Imaging studies, laboratory and physical exam results were discussed and reviewed in detail. No major barriers to patient understanding were identified. An opportunity to ask questions regarding the treatment plan was provided. All questions were answered. The patient expressed understanding and agreement with the above treatment plan. The patient is aware they should contact our office by phone for worsening of their current condition or the appearance of new urologic symptoms. Compliance is encouraged with any medications and followup testing that is ordered. It is a privilege to participate in the urologic care of your patient. If you have any questions or concerns regarding treatment for the above conditions, or other urologic issues, please do not hesitate to contact me. The office telephone contact is [phone]. Sincerely, Dr Horace Dudley MD, [facility] - Urology Compassionate Specialist Care for the Genitourinary System Coding Level of Care Code Tele Est Pt Level 3 (82926) Complex EM visit Add On G2211 Diagnoses Acute epididymitis N45.1 Testicular pain, left N50.812 Chronic pelvic pain in male R10.2; G89.29
--- OUTSIDE RECORDS SUMMARY | 2024-08-25 09:12 | XMS_ITS | Clinical Summary ---
Author Organization [employer] Address [address] [facility] 7t [place] [address] Care Team Providers Care Occupational Health Manager Name Role Phone Unavailable Primary Care Provider [...]
--- OUTSIDE RECORDS SUMMARY | 2024-08-25 09:12 | XMS_ITS | Encounter Summary ---
Author Organization [employer] Address [address] [facility] [address] [place] [address] Care Team Providers Care Television Director Name Role Phone Unavailable Primary Care Provider Unavailabl e Encounter Details Date Type Department Care Team (Latest Contact Info) Description 01/26/2019 Abstract [facility] CONVERSIONS Dental, Provider, DDS Social [...]
--- OUTSIDE RECORDS SUMMARY | 2024-08-25 09:12 | XMS_ITS | Encounter Summary ---
Author Organization [employer] Address [address] [facility] 7t [place] [address] Care Team Providers Care Inventory Auditor Name Role Phone Unavailable Primary Care Provider Unavailabl e Encounter Details Date Type Department Care Team (Latest Contact Info) Description 02/23/2020 Abstract [facility] CONVERSIONS Dental, Provider, DDS Social History [...]
== END 2024-08-25 09:43 | disposition home or self-care (01) ==
LOC: HO.HUSH 08:50
PROVIDERS: PCP Internal Medicine; Visit Provider Urology
DX: N45.1 Epididymitis (principal); N50.812 Left testicular pain; R10.2 Pelvic and perineal pain; G89.29 Other chronic pain
CPT/HCPCS: 99213; G2211

== ENCOUNTER → 2024-11-04 15:16 | Outpatient (AMB) | payer OTHER, SELFPAY ==
--- OUTSIDE RECORDS SUMMARY | 2024-11-04 15:19 | XMS_ITS | Data Portability ---
Author Organization [place] [facility], Allergy Address [address] [place] [id number] Care Team Providers Care Hearing Dog Trainer Name Role Phone [facility] Primary Care Provider [phone] Assessment Encounter Date Assessment Date Assessment LastModified by Organization Details LastModified Time 09/27/2024 09/27/2024 Patient describes overlapping symptoms of right sided headache that appear to respond to butalbital and rest. I believe these are more consistent with migraines and would not benefit from surgical intervention. His nasal endoscopy was performed to evaluate for possibility of underlying sinusitis. Fortunately there was no evidence of pus or obstructing polyps. His recent CT scan from June does have some mild polypoid changes of the mucosa within the maxillary sinus that do not require surgery at this time. Secondary concern was chronic nasal congestion which I believe is related to his undertreated chronic allergic rhinitis. Encouraged him to consistently use Claritin and a prescription was sent to his pharmacy. Offered a course of azelastine as well. He is not interested in pursuing repeat allergy testing and therapy at this time but would like to follow-up in 6 to 12 months to check in dplosky Not available 09/27/2024 11:38:57 Plan of Treatment Reminders Order Date Submit Date Provider Last Modified By Organization Details Last Modified Time Details Appointments Establish ed 15 2024 09:15A M FROILAN FORREST MD Not available Not available Not available Lab None recorded. Referral None recorded. Procedures None recorded. Surgeries None recorded. Imaging None recorded. Medication Orders azelastin e 137 mcg (0.1 %) nasal spray 2024 025 [facility] #[id number], [address] [facility] [facility], [place], [address], 09/27/2024 11:37:11 Claritin 10 mg tablet 2024 025 [facility] #[id number], [address], [place], [address], 09/27/2024 11:37:11 Patient TargetsNo targets recorded. Patient InstructionsNo instructions recorded. Reason for Referral None Reported. Problems Name Problem SNOMED Code Status Onset Date Resolution Date Notes Provider Name and Address Organization Details Recorded Time Seasonal allergic rhinitis 603981174 Active 2018 Other seasonal allergic rhinitis; Note: Date Diagnosed: 08/10/2018 11:28 AM (J30.2) Not Available [facility] 4 03:01:38 Wheezing 21658583 Active 2018 Wheezing; Note: Date Diagnosed: 08/10/2018 11:28 AM (R06.2) Not Available [facility] 4 03:01:39 Chronic rhinitis 41513879 Active 2018 Chronic rhinitis; Note: Date Diagnosed: 08/10/2018 11:28 AM (J31.0) Not Available [facility] 4 03:01:39 Deviated nasal septum 911987084 Active 2018 Deviated nasal septum; Note: Date Diagnosed: 08/10/2018 11:28 AM (J34.2) Not Available [facility] 4 03:01:41 Allergic rhinitis 44201390 Active 2018 Other allergic rhinitis; Note: Date Diagnosed: 08/10/2018 11:28 AM (J30.89) FROILAN FORREST MD [address] [place] [address], [place], [address] , [facility] 5 11:35:15 Uncomplic ated moderate persisten t asthma 342751792 Active 2018 Moderate persistent asthma, uncomplica truman; Note: Date Diagnosed: 08/10/2018 11:28 AM (J45.40) Not Available [facility] 4 03:01:41 Nasal congestio n 71567036 Active 2018 Nasal congestion ; Note: Date Diagnosed: 08/10/2018 11:28 AM (R09.81) Not Available [facility] 4 03:01:41 Migraine 78808903 Active 2024 FROILAN FORREST MD [address] [facility],[place] [address], [place], [address] , [facility] 5 11:35:03 Problem Notes None recorded. Procedures Surgical History Date Name Laterality Status Provider Name and Address Organization Details Recorded Time 09/27/2024 NasalEndos copy_DP completed FROILAN FORREST MD [address] [facility],[place] [address], [place], [address], [facility] 09/27/2024 11:34:33 Imaging Results None recorded. Procedure Notes None recorded. Medical Equipment None Reported. Allergies No known drug allergies Medications Name Sig Start Date Stop Date Status Note LastModified by Organization Details LastModified Time prednison e 10 mg tablet TAKE 6 TABS X2 DAYS, THEN 5 TABS X1 DAY, 4 TABS X1 DAY, 3 TABS X1 DAY, 2 TABS X1 DAY, 1 TAB X2 DAYS active Not Available Not Available No t Available cetirizin e 10 mg tablet TAKE 1 TABLET BY MOUTH EVERY DAY active Not Available Not Available No t Available azithromy tyson 250 mg tablet TAKE 2 TABLETS BY MOUTH TODAY, THEN TAKE 1 TABLET DAILY FOR 4 DAYS DIRECTED 09/27 completed Not Available Not Available Not Available prednison e 20 mg tablet TAKE 2 TABLETS BY MOUTH EVERY DAY FOR 5 DAYS 09/27 completed Not Available Not Available Not Available fluoroura cil 5 % topical cream START 2-3 DAYS A WEEK AND INCREASE TO TWICE A DAY TOLERATE D FOR 3 WEEKS active Not Available Not Available No t Available omeprazol e 40 mg capsule,d elayed release TAKE 1 CAPSULE BY MOUTH EVERY DAY 09/27 completed Not Available Not Available Not Available tramadol 50 mg tablet TAKE 1 TABLET BY MOUTH EVERY 8 HOURS FOR 1 WEEK NEEDED FOR PAIN 09/27 completed Not Available Not Available Not Available lamotrigi ne 25 mg tablet TAKE 1 TABLET BY MOUTH ONCE A DAY IF YOU SEE RASH, STOP MEDICATI ON active Not Available Not Available No t Available lorazepam 0.5 mg tablet TAKE 1 TABLET BY MOUTH TWICE A DAY NEEDED active Not Available Not Available No t Available tamsulosi n 0.4 mg capsule TAKE 1 CAPSULE BY MOUTH EVERY DAY 09/27 completed Not Available Not Available Not Available butalbita l-aspirin -caffeine 50 mg-325 mg-40 mg capsule TAKE 1 CAPSULE BY MOUTH EVERY 12 HOURS NEEDED FOR PAIN active Not Available Not Available No t Available mont[facility] st 10 mg tablet TAKE 1 TABLET ORALLY ONCE DAILY active Not Available Not Available No t Available azelastin e 137 mcg (0.1 %) nasal spray SPRAY 2 SPRAYS INTO EACH NOSTRIL TWICE A DAY active Not Available Not Available No t Available methylpre dnisolone 4 mg tablets in a dose pack TAKE 6 TABLETS ON DAY 1 DIRECTED ON PACKAGE AND DECREASE BY 1 TAB EACH DAY FOR A TOTAL OF 6 DAYS 09/27 completed Not Available Not Available Not Available albuterol sulfate HFA 90 mcg/actua tion aerosol inhaler TAKE 2 PUFFS BY MOUTH EVERY 6 TO 8 HOURS NEEDED FOR SHORTNES S OF BREATH OR WHEEZING FOR 1 MONTH active Not Available Not Available No t Available fluticaso ne propionat e 50 mcg/actua tion nasal spray,king pension INSTILL 1 SPRAY INTRANAS ALLY 2 TIMES A DAY ADMINIST ER INTO EACH NOSTRIL active Not Available Not Available No t Available lamotrigi ne 100 mg tablet 09/27 completed Medicati on ID: [id number] D uration Value: 90 Brand Name: felicia ramirez Send Method: E-Prescr ibed Sub s Allowed: subs OK Speci al Instruct ion: TAKE 1 TABLET BY MOUTH EVERY DAY Medi cationGe nericNam e: lamotrig ine Not Available Not Available Not Available loratadin e 10 mg tablet TAKE 1 TABLET BY MOUTH EVERY DAY active Not Available Not Available No t Available naproxen 500 mg tablet TAKE 1 TABLET ORALLY EVERY 12 HOURS NEEDED FOR PAIN USE FOR 3 DAYS WHEN PROSTATI TIS FLARES 09/27 completed Not Available Not Available Not Available amoxicill in 875 mg-potass ium clavulana te 125 mg tablet TAKE 1 TABLET BY MOUTH TWICE A DAY FOR 10 DAYS 09/27 completed Not Available Not Available Not Available bupropion HCl XL 300 mg 24 hr tablet, extended release TAKE 1 TABLET BY MOUTH EVERY DAY active Not Available Not Available No t Available bupropion HCl XL 150 mg 24 hr tablet, extended release TAKE 1 TABLET BY MOUTH EVERY DAY active Not Available Not Available No t Available tadalafil 20 mg tablet TAKE 1 TABLET BY MOUTH 60 MINUTES PRIOR TO INTENDED ACTIVITY active Not Available Not Available No t Available Allergy Relief D12 5 mg-120 mg tablet,ex tended release TAKE 1 TAB ORALLY EVERY 12 HOURS NEEDED FOR ALLERGY SYMPTOMS active Not Available Not Available No t Available duloxetin e 60 mg capsule,d elayed release 09/27 completed Medicati on ID: [id number] D uration Value: 90 Brand Name: duloxeti ne Send Method: E-Prescr ibed Sub s Allowed: subs OK Speci al Instruct ion: TAKE 1 CAPSULE BY MOUTH EVERY EVENING AFTER MEALS Me dication GenericN renan: duloxeti ne Not Available Not Available Not Available Mucus Relief ER 600 mg tablet, extended release TAKE 1 TABLET BY MOUTH EVERY 12 HOURS NEEDED FOR CONGESTI ON active Not Available Not Available No t Available Incruse Ellipta 62.5 mcg/actua tion powder for inhalatio n 2018 active Medicati on ID: [id number] D uration Value: 30 Brand Name: Incruse Ellipta Send Method: E-Prescr ibed Sub s Allowed: subs OK Speci al Instruct ion: INHALE 1 PUFF INTO THE LUNGS DAILY FOR 30 DAYS. Me dication GenericN renan: Incruse Ellipta Not Available Not Available Not Available Opzelura 1.5 % topical cream APPLY TO ARMS, LEGS, TRUNK TWICE DAILY NEEDED FOR FLARES active Not Available Not Available No t Available Vitals Date Recorded Body height Body mass index (BMI) Body weight Provider Name and Address Organization Details Last Updated DateTime 09/27/2024 180.34 cm 26.5 kg/m2 20306.55 g [facility] 09/27/2024 11:12:47 Social History None recorded. Functional Status Question Answer Note LastModified by Organization D etails LastModified Time What is your level of alcohol consumption? None [email or web address] Information not available 09/27/2024 Mental Status None recorded. Family History Nothing Reported. Medical History Condition Response Emphysema Y Migraines Y Anxiety Y Depression Y Past Encounters Encounter ID Performer Location Encounter Start Date Encounter Closed Date Diagnosis/Indication Diagnosis SNOMED-CT Code Diagnosis ICD10 Code Diagnosis Note [id number] FROILAN FORREST MD [facility] [address] [place], [place] [phone] 09/27/2024 10:30:31 09/27/2024 11:39:00 Migraine 89858956 G43.909 Allergic rhinitis 220081 04 J30.9 Health Concerns Section Related Observation LastModified by Organization Detai ls LastModified Time None Recorded Concern Status LastModified by Organization Details LastModified Time None Recorded Advance Directives Directive None Recorded Payers Insurance Date Sequence Insurance Name Policy Number Policy Shetty Covered Member ID Shetty Member ID Guarantor Name 07/26/2024 1 [employer] (PPO) Froilan Bartlett [id number] Froilan Bartlett 09/27/2024 1 [facility] - DOS ON OR AFTER 2022 - ONE CARE (MEDICARE REPLACEMENT/ADV ANTAGE - HMO) Froilan Bartlett [id number] Froilan Bartlett Notes Date Note Type Note Provider Name and Address Organization Details Recorded Time 09/27/2024 text/html recurrent sinusitisnasal congestion, allergiesright sided headacheDr Maladi performed 2 sinus surgery around 2004, 2014uses claritin PRNnasal saline qAM regular,flonase and afrin PRNwheeze - albuteroltrial of SCIT was not helpful, stopped around 2014tobacco 1pack/week 04/01/2018 [place], CT sinus noncontrastStatus post right-sided endoscopic sinus surgery with right medial maxillary antrostomy.Ethmoids: Opacification of scattered ethmoid air cells.Maxillary: Small right maxillary mucosal retention cyst.Nasal cavity essentially midline nasal septum status post septoplasty. 07/14/2024 [place], CT sinus noncontrastStatus post right sided endoscopic sinus surgery. Mild polypoid mucosal thickening in superior and medial juarez of right maxillary sinus. Small retention cyst inferior right maxillary sinus.Polypoid mucosal thickening superior medial and lower lateral left maxillary sinus.Polypoid mucosal thickening middle turbinates, right greater than left.Impression: Polypoid pattern paranasal sinus disease mild to moderate. Similar to prior PV 11/09/18 Schreibstein - nasal endoscopy septum to left, touching middle turb. 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
--- OUTSIDE RECORDS SUMMARY | 2024-11-04 15:19 | XMS_ITS | Clinical Summary ---
Author Organization [employer] Address [address] [facility] [address] [place] [address] Care Team Providers Care Cotton Picker Name Role Phone Unavailable Primary Care Provider [...] FOBT 1962 Lipid Panel 1962 Sigmoidoscopy 1962 Disability Screening 1962 Alcohol/Substance Use Screening 1974 Tobacco Screening 1974 DTaP/Tdap/Td Vaccines (1 - Tdap) 1981 Pneumococcal Vaccine: 50+ Ye ars (1 of 1 - PCV) 2012 Zoster Vaccines (1 of 2) 2012 COVID-19 Vaccine ( - 2023-2 5 season) 2023 Influenza Vaccine (#1) 2024 RSV Patients and Pa tients Aged 60 [...] patient's age to complete this topic Meningococcal B Vaccine Aged Out No l onger eligible based on patient's age to complete [...]
--- OUTSIDE RECORDS SUMMARY | 2024-11-04 15:20 | XMS_ITS | Patient Health Record ---
Author Organization [facility] Address [address] [place] [address] Care Team Providers Care Leather Tacker Name Role Phone KEEGAN BENDER Primary Care Provider Fermin Sandoval Unavailable [phone] Allergies Allergen (clinical drug ingredient) Drug/Non Drug [...] Problem Status W/U Status Risk Notes Problem 509690891 Encounter for screening for malignant neoplasm of colon (Z12.11) Active confirmed Problem Screening for malignant neoplasm of rectum (041341919) Encounter for screening for malignant neoplasm of rectum (Z12.12) Active confirmed Problem 05030323 Preprocedural examination (Z01.818) Active confirmed Problem 496099315 History of colon polyps (Z86.010) Active confirmed Problem 808618762 Fatty liver (K76.0) Active confirmed Problem Diverticulosis o f colon (K57.30) Active confirmed Plan Of Treatment Pending Test Test Name Order Date Pathology 04/16/2021 Future Test Test Name Order Date COLONOSCOPY 06/14/2015 COLONOSCOPY 03/20/2021 Insurance Providers Payer Name Payer Address Payer Phone Subscriber Number Group Number Insured Name Patient Relationship to Insured Coverage Start Date Coverage End Date [facility] [address] [facility] [address] [id number] ALEXANDRO VALLEJO Self - patient is the insured Medical (General) History Medical History History ICD Code Denies [place],DM,CVA,Lung disease,renal dise ase GERD-rarely uses PPI Depression Fatty liver on the [place] in 2014 but nor mal LFT's in 2013 Colonoscopies age 32(in [facility] on) and approx 2009(in [place]) with removal of polyps; colonoscopy 08/2015 with only a hyperplastic polyp Asthma Surgical History Surgery Date(Month/Year) Sinus surgery x2 Varicocele x 2
[2024-11-04 15:34] VITALS: BP 110/70; PULSE 99; TEMP 36.3; O2SAT 97; BMI 28.4
--- NOTE | 2024-11-04 15:34 | MHC.PC.OV ---
Vital Signs 11/04/24 15:34 Height 5 ft 9 in Weight 192 lb BMI 28.4 BP 110/70 Blood Pressure Location Lt brachial Position Sitting Pulse 99 Pulse Source Pulse Oximeter Temp 97.3 F Temp Source Temporal Artery Scan Pulse Oximetry (%) 97 Oxygen Delivery Method Room Air Intake Visit Reasons: med follow up Outboard Motor Assembler Required: No Accompanied by: Self / Same As Patient Allergies levofloxacin Allergy (Severe, Verified 11/04/24 15:42) Difficulty Breathing Tobacco use date assessed: 05/28/24 Dental Screening Dental Screen Date: 05/24/24 [facility] Medical History (Updated 11/10/24 @ 10:02 by Bandar Chavarria MD) Chronic back pain Sinusitis GERD (gastroesophageal reflux disease) Anxiety Dyspnea Allergic rhinitis Nocturia Erectile dysfunction due to arterial insufficiency Chronic prostatitis Major depression Eczema craquele History of varicocele Asthma Varicocele present on ultrasound of scrotum Surgical History History of testicular surgery Hx of sinus surgery H/O colonoscopy (04/16/21) S/P scrotal varicocelectomy Family History Mother No problems noted. Father No problems noted. 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 1. Little interest or pleasure in doing things: nearly every day 2. Feeling down, depressed, or hopeless: nearly every day 3. Trouble falling or staying asleep, or sleeping too much: not at all 4. Feeling tired or having little energy: several days 5. Poor appetite or overeating: not at all 6. Feeling bad about yourself - or that you are a failure or have let yourself or your family down: more than half the days 7. Trouble concentrating on things, such as reading the newspaper or watching television: nearly every day 8. Moving or speaking so slowly that other people could have noticed. Or the opposite - being so fidgety or restless that you have been moving around a lot more than usual: not at all 9. Thoughts that you would be better off or of hurting yourself in some way: not at all Total score: 12 41270 - PHQ-9 Billing: Yes Source: Developed by Drs. Fermin Quiñonez, Sara Gonzalez, Nish Hernandez and colleagues, with an educational isiah from [employer]. Thrive Questionnaire Date Thrive assessed: 11/04/24 I am a: Patient What is your living situation today?: I have a steady place to live Within the past 12 months, did the food you bought not last and you didn't have the money to get more?: Never true Within the past 12 months, did you worry whether your food would run out before you got money to buy more?: Never true Do you have trouble paying for medicines?: No Do you have trouble getting transportation to medical appointments?: No Do you have trouble paying your heating and electricity bill?: No Do you have trouble taking care of your child, family member or friend?: No Do you have trouble with day-to-day activities such as bathing, preparing meals, shopping, managing finances, etc.?: No Are you currently unemployed and looking for a job?: No Are you interested in more education?: No Please select the resources that you would like help with: Education Currently or been in a relationship where the following occur: No concerns reported THRIVE Score: 0 AUDIT C Alcohol Use Questionnaire (AUDIT-C) 1. How often do you have a drink containing alcohol?: Never 3. How often do you have six or more drinks on one occasion?: Never Total Score: 0 SHAJI-7 AMB Questionnaire SHAJI-7 Date SHAJI - 7 assessed: 11/04/24 Feeling nervous, anxious, or on edge: 2 = More than half the days Not being able to stop or control worryin = Nearly every day Worrying too much about different things: 3 = Nearly every day Trouble relaxin = Nearly every day Being so restless that it is hard to sit still: 1 = Several days Becoming easily annoyed or irritable: 1 = Several days Feeling afraid as if something awful might happen: 3 = Nearly every day Total SHAJI-7 score (0-4 normal; 5-9 mild; 10-14 moderate; 15-21 severe): 16 Source: Developed by Drs. Fermin Quiñonez, Sara Gonzalez, Nish Hernandez and colleagues, with an educational isiah from [employer]. SHAJI-7 Assessment Billing SHAJI-7 Assessment Tool: SHAJI-7 Assessment 67750 Physical exam (Primary Care) Vital Signs: Last Vital Signs Temp 97.3 F 11/04/24 15:34 Pulse 99 11/04/24 15:34 BP 110/70 11/04/24 15:34 Pulse Ox 97 11/04/24 15:34 Oxygen Delivery Method Room Air 11/04/24 15:34 BMI result Body Mass Index 28.4 Tobacco/Smoking Status: Tobacco use Status Tobacco use date assessed 05/28/24 11/04/24 15:36 Patient Tobacco Use Status Former Tobacco user 11/04/24 15:36 Tobacco use type Cigarette 11/04/24 15:36 e-Cigarette/Vaping Use Never Used 11/04/24 15:36 PHQ-9: PHQ-9 Score PHQ-9: Total score 12 11/04/24 15:43 Thrive Assessment: Date of Thrive Assessment Date Thrive assessed 11/04/24 11/04/24 15:43 Currently or been in a relationship where the following occur: No concerns reported Coding Level of Care Code Est Pt Level 4 (97403) Complex EM visit Add On G2211 Diagnoses Anxiety F41.9 Additional Codes SHAJI-7 Assessment Billing - SHAJI-7 Assessment Tool: SHAJI-7 Assessment 56345 ([id number]) PHQ-9 - 03607 - PHQ-9 Billing: Yes ([id number]) Assessment & Plan Assessment & Plan (1) Anxiety: Comment: PATIENT DOES HAVE HISTORY OF CHRONIC ANXIETY AND SOME DEPRESSION. Code(s): F41.9 - Anxiety disorder, unspecified Category: Medical Plan: History of Present Illness - The patient is a 64-year-old male presenting with anxiety and medication management issues. - Anxiety disorder: The patient reports experiencing anxiety and fear starting approximately three months ago. - Medication management issues: The patient had difficulty contacting his previous counselor at [facility] for medication adjustments due to her vacation and extended leave. - He subsequently [facility], where Dr. Wren has been gradually increasing his medication dosages, including Wellbutrin and lamotrigine. - The patient has been using lorazepam more frequently due to increased anxiety, with a current regimen of 1 mg in the morning and 1 mg at night. - He is participating in cognitive behavioral therapy (CBT) and dialectical behavior therapy (DBT) twice a week. - The patient is working 10 hours a week while on disability and is considering [id number]-[id number] psychiatric care in [place]. - Smoking relapse: The patient reports a relapse in smoking over the past three months after a two-year cessation. Social History - Employment: The patient is working 10 hours a week while on disability. - Exercise: The patient walks four to five miles every night with his partner. - Substance use: The patient reports a relapse in smoking over the past three months after a two-year cessation. Review of Systems - Psychiatric: Reports anxiety and fear for the past three months. - Respiratory: Reports smoking relapse over the past three months. Physical Exam General: Cooperative and healthy appearing Nutritional Appearance: Well nourished Orientation/consciousness: Patient oriented x3 Limitations: No limitations Head: Normal to inspection General: Appearance normal, both eyes and all related structures Neck: Normal visual inspection Chest: Normal palpation of entire chest wall Respiratory: Patient reports smoking a lot in the past three months. ormal respiratory effort Neurology: Patient oriented x3 Results Plan 1. Anxiety Disorder - Continue current medication regimen with Wellbutrin and lamotrigine under the supervision of Dr. Wren. - Maintain lorazepam at 1 mg in the morning and 1 mg at night as needed for anxiety management. - Continue participation in CBT and DBT therapy sessions twice a week. - Explore bwii-kw-auvg psychiatric care options in [place] for more frequent follow-up. 2. Medication Management Issues - Address medication management issues by ensuring regular follow-up with Dr. Wren and exploring local psychiatric care options. 3. Smoking Relapse - Encourage smoking cessation efforts and discuss potential interventions to support quitting. Discussion Notes During the visit, we discussed the patient's ongoing anxiety management, including the current medication regimen with Wellbutrin, lamotrigine, and lorazepam. We also reviewed the importance of continuing CBT and DBT therapy sessions. The patient expressed interest in xeol-es-ybfj psychiatric care, and I agreed to explore options in [place]. We addressed the smoking relapse and discussed potential cessation strategies. I emphasized the need for regular follow-up with Dr. Wren to ensure effective medication management. Patient Instructions - Continue taking Wellbutrin, lamotrigine, and lorazepam as prescribed. - Attend CBT and DBT therapy sessions twice a week. - Explore iydc-wy-xzyt psychiatric care options in [place]. - Work on smoking cessation and consider available support options.
== END ==
LOC: HO.HMCH 15:17
PROVIDERS: PCP Internal Medicine; Visit Provider Internal Medicine
DX: F41.9 Anxiety disorder, unspecified (principal)

== ENCOUNTER → 2024-11-04 15:16 | Outpatient (BNVA) | payer OTHER, SELFPAY | PROVIDERS: PCP Internal Medicine; Visit Provider Internal Medicine | DX: K21.9 Gastro-esophageal reflux disease without esophagitis (principal); F41.9 Anxiety disorder, unspecified; F32.A Depression, unspecified; Z87.891 Personal history of nicotine dependence | CPT/HCPCS: 96127; 99212 ==

== ENCOUNTER 2025-01-06 11:01 | Outpatient (AMB) | payer OTHER, SELFPAY ==
--- NOTE | 2025-01-06 11:13 | A.OFFPC_ITS ---
Vital Signs 01/06/25 11:15 Height 5 ft 9 in Weight 193 lb 4 oz BMI 28.5 BP 100/72 Blood Pressure Location Rt brachial Position Sitting Pulse 72 Pulse Source Pulse Oximeter Temp 97.3 F Temp Source Temporal Artery Scan Pulse Oximetry (%) 96 Oxygen Delivery Method Room Air Intake Visit Reasons: 6 month follow up/Complex Intake Note: Patient is here to follow up on Chronic back pain, Hypercholesterolemia, Asthma. Band Bias Machine Operator Required: No Stain Dipper: Not Required per policy Accompanied by: Self / Same As Patient Allergies levofloxacin Allergy (Severe, Verified 01/06/25 11:14) Difficulty Breathing Tobacco use date assessed: 01/06/25 Dental Screening Dental Screen Date: 05/24/24 [facility] Medical History (Updated 11/10/24 @ 10:02 by Bandar Chavarria MD) Chronic back pain Sinusitis GERD (gastroesophageal reflux disease) Anxiety Dyspnea Allergic rhinitis Nocturia Erectile dysfunction due to arterial insufficiency Chronic prostatitis Major depression Eczema craquele History of varicocele Asthma Varicocele present on ultrasound of scrotum Surgical History History of testicular surgery Hx of sinus surgery H/O colonoscopy (04/16/21) S/P scrotal varicocelectomy Family History Mother No problems noted. Father No problems noted. 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[employer] Cognitive needs: No Hearing needs: No Vision needs: Yes Questionnaire Thrive Questionnaire Date Thrive assessed: 11/04/24 I am a: Patient What is your living situation today?: I have a steady place to live Within the past 12 months, did the food you bought not last and you didn't have the money to get more?: Never true Within the past 12 months, did you worry whether your food would run out before you got money to buy more?: Never true Do you have trouble paying for medicines?: No Do you have trouble getting transportation to medical appointments?: No Do you have trouble paying your heating and electricity bill?: No Do you have trouble taking care of your child, family member or friend?: No Do you have trouble with day-to-day activities such as bathing, preparing meals, shopping, managing finances, etc.?: No Are you currently unemployed and looking for a job?: No Are you interested in more education?: No Please select the resources that you would like help with: Education Currently or been in a relationship where the following occur: No concerns reported THRIVE Score: 0 SHAJI-7 AMB Questionnaire SHAJI-7 Date SHAJI - 7 assessed: 11/04/24 Source: Developed by Drs. Fermin Quiñonez, Sara Gonzalez, Nish Hernandez and colleagues, with an educational isiah from [employer]. Physical exam (Primary Care) Vital Signs: Last Vital Signs Temp 97.3 F 01/06/25 11:15 Pulse 72 01/06/25 11:15 BP 100/72 01/06/25 11:15 Pulse Ox 96 01/06/25 11:15 Oxygen Delivery Method Room Air 01/06/25 11:15 BMI result Body Mass Index 28.5 Tobacco/Smoking Status: Tobacco use Status Tobacco use date assessed 01/06/25 01/06/25 11:23 Patient Tobacco Use Status Former Tobacco user 01/06/25 11:23 Tobacco use type Cigarette 01/06/25 11:23 e-Cigarette/Vaping Use Never Used 01/06/25 11:23 Thrive Assessment: Date of Thrive Assessment Date Thrive assessed 11/04/24 01/06/25 11:23 Currently or been in a relationship where the following occur: No concerns reported Coding Level of Care Code Est Pt Level 4 (20268) Complex EM visit Add On G2211 Diagnoses Major depression F32.9 Assessment & Plan Assessment & Plan (1) Major depression: Code(s): F32.9 - Major depressive disorder, single episode, unspecified Category: Medical Plan: History of Present Illness - The patient is a 64-year-old male presenting with anxiety and depression management. - The patient has been experiencing increased anxiety and depression despite medication adjustments, including increased doses of lamotrigine, bupropion, and lorazepam. - Recently started on sertraline, but reports feeling a heavy sensation in the head, described as a 10-pound block, with no improvement in symptoms. - Engages in regular physical activity, walking approximately 600 miles over the past few months, five days a week, which he finds beneficial. - Participates in cognitive behavioral therapy (CBT) and dialectical behavioral therapy (DBT), attending sessions both online and in-person, and sees a therapist weekly. - Reports anxiety related to working part-time while on social security, contributing to his stress levels. Social History - Exercise: Engages in regular walking, approximately 600 miles over the past few months, five days a week. - Employment: Experiences anxiety related to working part-time while on social security. Review of Systems - Neurological: Reports a heavy sensation in the head, described as a 10-pound block, with no improvement in symptoms. - Respiratory: Denies wheezing, reports improvement in respiratory symptoms. - Gastrointestinal: Denies abdominal pain. Physical Exam General: Cooperative and healthy appearing Nutritional Appearance: Well nourished Orientation/consciousness: Patient oriented x3 Limitations: No limitations Head: Normal to inspection General: Appearance normal, both eyes and all related structures Neck: Normal visual inspection Chest: Normal palpation of entire chest wall Respiratory: Wheezing has been good, no issues reported. ormal respiratory effort Neurology: Patient oriented x3, reports head feels like a 10-pound block with no motion. Results Plan 1. Anxiety - Continue with cognitive behavioral therapy (CBT) and dialectical behavioral th erapy (DBT) sessions. - Monitor response to sertraline and adjust dosage as needed. 2. Depression - Continue current medication regimen with lamotrigine and bupropion, monitor for efficacy and side effects. - Evaluate the need for lorazepam tapering due to potential interactions with sertraline. 3. Insomnia - Assess sleep hygiene and consider non-pharmacological interventions to improve sleep quality. Discussion Notes During the visit, we discussed the management of anxiety and depression, including the continuation of CBT and DBT sessions. We also reviewed the current medication regimen, emphasizing the importance of monitoring the response to sertraline and considering adjustments as necessary. The potential need for tapering lorazepam was addressed due to its interaction with sertraline. We also talked about the importance of maintaining regular physical activity and addressing sleep hygiene to improve insomnia symptoms. Patient Instructions - Continue attending CBT and DBT sessions regularly. - Monitor how you feel with the new medication and report any changes. - Maintain your walking routine as it benefits your mental health. - Practice good sleep hygiene to help with insomnia.
[2025-01-06 11:15] VITALS: BP 100/72; PULSE 72; TEMP 36.3; O2SAT 96; BMI 28.5
--- OUTSIDE RECORDS SUMMARY | 2025-01-06 15:10 | XMS_ITS | Clinical Summary ---
Author Organization [facility] Address [address] [place] [address] Phone Care Team Providers Care Railroad Engineer Name Role Phone Harpal Bob DO Primary Care Provider [phone] Allergies No known active allergies Social History Tobacco Use Types Packs/Day Years Used Date Smoking Tobacco: Never Assessed Sex and Gender Information Value Date Recorded Sex Assigned at Not on file Legal Sex Male 6:57 PM EST Gender Identity Not on file Sexual Orientation Not on file Last Filed Vital Signs Vital Sign Reading Time Taken Comments Blood Pressure 111/71 09/24/2013 12:00 AM EDT Pulse 78 09/24/2013 12:00 AM EDT Temperature 36.3 C (97.3 F) 08/18/2013 12:00 AM EDT Respiratory Rate 16 08/18/2013 12:00 AM EDT Oxygen Saturation - - Inhaled Oxygen Concentration - - Weight 96.8 kg (213 lb 6.5 oz) 09/24/2013 12:00 AM EDT Height 176.5 cm (5' 9.5 ) 09/24/2013 12:00 AM ED T Body Mass Index 31.06 09/24/2013 12:00 AM EDT Plan of Treatment Not on file Medical Devices Not on file Care Teams Railroad Engineer Relationship Specialty Start Date End Date Harpal Bob DO [address] [place] [address] PCP - General 10/26/13 Additional Source Comments The information contained in this document represents components of the legal health record. It is not the complete legal health record.[facility]
--- OUTSIDE RECORDS SUMMARY | 2025-01-06 15:10 | XMS_ITS | Clinical Summary ---
Author Organization [facility] [employer] [facility] [employer] Address [address] [place] [address] Care Team Providers Care Community Recreation Programmer Name Role Phone Unavailable Primary Care Provider [...] COVID-19 Vaccine ( - 2023-2 5 season) 2024 Influenza Vaccine (#1) 2024 RSV Patients and [...]
--- OUTSIDE RECORDS SUMMARY | 2025-01-06 15:11 | XMS_ITS | Encounter Summary ---
Author Organization [facility] Address [address] [place] [address] Care Team Providers Care Instructor Of Nursing Name Role Phone Unavailable Primary Care Provider Unavailabl e Encounter Details Date Type Department Care Team (Latest Contact Info) Description 02/23/2020 Abstract [facility] CONVERSIONS Dental, Provider, DDS Social History [...]
--- OUTSIDE RECORDS SUMMARY | 2025-01-06 15:11 | XMS_ITS | Patient Health Record ---
Author Organization [facility] Address [address] [place] [address] Care Team Providers Care Environmental Professional Name Role Phone KEEGAN BENDER Primary Care Provider Fermin Sandoval Unavailable [phone] Allergies Allergen (clinical drug ingredient) Drug/Non Drug [...] Problem Status W/U Status Risk Notes Problem 025751377 Encounter for screening for malignant neoplasm of colon (Z12.11) Active confirmed Problem Screening for malignant neoplasm of rectum (627759686) Encounter for screening for malignant neoplasm of rectum (Z12.12) Active confirmed Problem 95575480 Preprocedural examination (Z01.818) Active confirmed Problem 578431311 History of colon polyps (Z86.010) Active confirmed Problem 800195615 Fatty liver (K76.0) Active confirmed Problem Diverticulosis of colon (996640452) Diverticulosis of colon (K57.30) Active confirmed Plan Of Treatment Pending Test Test Name Order Date Pathology 04/16/2021 Future Test Test Name Order Date COLONOSCOPY 06/14/2015 COLONOSCOPY 03/20/2021 Insurance Providers Payer Name Payer Address Payer Phone Subscriber Number Group Number Insured Name Patient Relationship to Insured Coverage Start Date Coverage End Date [facility] [address] [place] [address] [id number] ALEXANDRO VALLEJO Self - patient is the insured Medical (General) History Medical History History ICD Code Denies [place],DM,CVA,Lung disease,renal dise ase GERD-rarely uses PPI Depression Fat[place] but [place] mal LFT's in 2013 Colonoscopies age 32(in [facility]) and approx 2009(in [place]) with removal of polyps; colonoscopy 08/2015 with only a hyperplastic polyp Asthma Surgical History Surgery Date(Month/Year) Sinus surgery x2 Varicocele x 2
--- OUTSIDE RECORDS SUMMARY | 2025-01-06 15:11 | XMS_ITS | Encounter Summary ---
Author Organization [facility] Address [address] [place] [address] Care Team Providers Care Senior Training And Development Rep Name Role Phone Unavailable Primary Care Provider Unavailabl e Encounter Details Date Type Department Care Team (Latest Contact Info) Description 01/26/2019 Abstract [facility] CONVERSIONS Dental, Provider, DDS Social History [...]
== END 2025-01-06 11:58 | disposition home or self-care (01) ==
LOC: HO.HMCH 11:02
PROVIDERS: PCP Internal Medicine; Visit Provider Internal Medicine
DX: F32.9 Major depressive disorder, single episode, unspecified (principal)

== ENCOUNTER → 2025-01-06 11:01 | Outpatient (BNVA) | payer OTHER, SELFPAY | PROVIDERS: PCP Internal Medicine; Visit Provider Internal Medicine | DX: F32.9 Major depressive disorder, single episode, unspecified (principal); F41.9 Anxiety disorder, unspecified; G47.00 Insomnia, unspecified; J45.909 Unspecified asthma, uncomplicated; Z79.899 Other long term (current) drug therapy | CPT/HCPCS: 99212 ==

== ENCOUNTER 2025-01-27 07:51 | Outpatient (AMB) | payer OTHER, SELFPAY ==
--- OUTSIDE RECORDS SUMMARY | 2025-01-27 07:54 | XMS_ITS | Data Portability ---
Author Organization [place] - [facility], Allergy Address [address] [place] [id number] Care Team Providers Care Rn Vascular Name Role Phone [facility] Primary Care Provider [phone] Assessment Encounter Date Assessment Date Assessment LastModified [...] mcg (0.1 %) nasal spray 2024 025 [facility] #[id number], [id number] [facility], [place], [address], 09/27/2024 11:37:11 Claritin 10 mg tablet 2024 025 [facility] #[id number], [address] [facility], [place], [address], 09/27/2024 11:37:11 Patient TargetsNo targets recorded. Patient InstructionsNo instructions recorded. Reason for Referral None Reported. Problems Name Problem SNOMED Code Status Onset Date Resolution Date Notes Provider Name and Address Organization Details Recorded Time Seasonal allergic rhinitis 424271130 Active 2018 Other seasonal allergic rhinitis; Note: Date Diagnosed: 08/10/2018 11:28 AM (J30.2) Not Available [facility] 4 03:01:38 Wheezing 84199541 Active 2018 Wheezing; Note: Date Diagnosed: 08/10/2018 11:28 AM (R06.2) Not Available [facility] 4 03:01:39 Chronic rhinitis 00557203 Active 2018 Chronic rhinitis; Note: Date Diagnosed: 08/10/2018 11:28 AM (J31.0) Not Available [facility] 4 03:01:39 Deviated nasal septum 006994384 Active 2018 Deviated nasal septum; Note: Date Diagnosed: 08/10/2018 11:28 AM (J34.2) Not Available [facility] 4 03:01:41 Allergic rhinitis 40801177 Active 2018 Other allergic rhinitis; Note: Date Diagnosed: 08/10/2018 11:28 AM (J30.89) FROILAN FORREST MD [address] [place] [address], [place], [address] , [facility] 5 11:35:15 Uncomplic ated moderate persisten t asthma 766448478 Active 2018 Moderate persistent asthma, uncomplica truman; Note: Date Diagnosed: 08/10/2018 11:28 AM (J45.40) Not Available [facility] 4 03:01:41 Nasal congestio n 90873633 Active 2018 Nasal congestion ; Note: Date Diagnosed: 08/10/2018 11:28 AM (R09.81) Not Available [facility] 4 03:01:41 Migraine 24295449 Active 2024 FROILAN FORREST MD [address] [facility],[place] [address], [place], [address] , [facility] 5 11:35:03 Problem Notes None recorded. Procedures Surgical History Date Name Laterality Status Provider Name and Address Organization Details Recorded Time 09/27/2024 NasalEndos copy_DP completed FROILAN FORREST MD [address] [facility],[place] [address], [place], [address], [facility] 09/27/2024 11:34:33 Imaging Results None recorded. Procedure [...] st 10 mg tablet TAKE 1 TABLET BY MOUTH EVERY DAY FOR 30 DAYS active Not Available Not Available No [...] mg tablet 09/27 completed Medicati on ID: [id number] D uration Value: 90 Brand Name: felicia [...] elayed release 09/27 completed Medicati on ID: [id number] D uration Value: 90 Brand Name: duloxeti ne Send Method: E-Prescr ibed Sub s Allowed: subs OK Speci al Instruct ion: TAKE 1 CAPSULE BY MOUTH EVERY EVENING AFTER MEALS Me dication GenericN renan: duloxeti ne Not Available Not Available Not Available chlorhexi dine gluconate 0.12 % mouthwash PLEASE SEE ATTACHED FOR DETAILED DIRECTIO NS active Not Available Not Available No t Available Mucus Relief ER 600 mg tablet, extended release TAKE 1 TABLET BY MOUTH EVERY 12 HOURS NEEDED FOR CONGESTI ON active Not Available Not Available No t Available Incruse Ellipta 62.5 mcg/actua tion powder for inhalatio n 2018 active Medicati on ID: [id number] D uration Value: 30 Brand Name: Incruse [...] Updated DateTime 09/27/2024 180.34 cm 26.5 kg/m2 58131.55 g TERESITA NICHOLSON [place] - [facility] 09/27/2024 11:12:47 Social History None recorded. Functional [...] Diagnosis SNOMED-CT Code Diagnosis ICD10 Code Diagnosis IMO Codes Diagnosis Note [id number] FROILAN FORREST MD [facility] [address] [phone] 09/27/2024 10:30:31 09/27/2024 11:39:00 Migraine 75722495 G43.909 82160 Allergic rhinitis 353017 04 J30.9 1797567 Health Concerns Section Related Observation LastModified by Organization Detai ls LastModified Time None Recorded Concern Status LastModified by Organization Details LastModified Time None Recorded Advance Directives Directive None Recorded Payers Insurance Date Sequence Insurance Name Policy Number Policy Shetty Covered Member ID Shetty Member ID Guarantor Name 07/26/2024 1 [employer] (O) Froilan Bartlett [id number] Froilan Bartlett 09/27/2024 1 [facility] - DOS ON OR AFTER 2022 - ONE CARE (MEDICARE REPLACEMENT/ADV ANTAGE - HMO) Froilna Bartlett [id number] Froilan Bartlett Notes Date Note Type Note Provider Name and Address Organization Details Recorded Time 09/27/2024 text/html ROS as noted in the HPI recurrent sinusitisnasal congestion, allergiesright sided headacheDr Maladi performed 2 sinus surgery around 2014uses claritin PRNnasal saline qAM regular,flonase and [...] 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
--- OUTSIDE RECORDS SUMMARY | 2025-01-27 07:54 | XMS_ITS | Encounter Summary ---
Author Organization [employer] Address [address] [facility] [address] [place] [address] Care Team Providers Care Needle Loom Tender Name Role Phone Unavailable Primary Care Provider Unavailabl e Encounter Details Date Type Department Care Team (Latest Contact Info) Description 02/23/2020 Abstract [facility] CONVERSIONS Dental, Provider, DDS Social History [...]
--- OUTSIDE RECORDS SUMMARY | 2025-01-27 07:54 | XMS_ITS | Clinical Summary ---
Author Organization [facility] Address [address] [address] [place] [address] Phone Care Team Providers Care Boilermaking Supervisor Name Role Phone Harpal Bob DO Primary Care Provider [phone] Allergies No known active allergies Social History [...] Medical Devices Not on file Care Teams Boilermaking Supervisor Relationship Specialty Start Date End Date Harpal Bob DO [address] [place] [address] PCP - General 10/26/13 Additional Source Comments The information contained in this document represents components of the legal health record. It is not the complete legal health record.[facility]
--- OUTSIDE RECORDS SUMMARY | 2025-01-27 07:54 | XMS_ITS | Clinical Summary ---
Author Organization [email or web address] Address [address] [facility] [address] [place] [address] Care Team Providers Care Retail Support Associate [...]
--- OUTSIDE RECORDS SUMMARY | 2025-01-27 07:54 | XMS_ITS | Encounter Summary ---
Author Organization [employer] Address [address] [facility] [address] [place] [address] Care Team Providers Care Hand Picker Name Role Phone Unavailable Primary Care Provider Unavailabl e Encounter Details Date Type Department Care Team (Latest Contact Info) Description 01/26/2019 Abstract [facility] CONVERSIONS Dental, Provider, DDS Social History Tobacco [...]
--- OUTSIDE RECORDS SUMMARY | 2025-01-27 07:54 | XMS_ITS | Patient Health Record ---
Author Organization [facility] Address [address] [place] [address] Care Team Providers Care Advanced Practice Registered Nurse Name Role Phone KEEGAN BENDER Primary Care Provider Fermin Sandoval Unavailable [phone] Allergies Allergen (clinical drug ingredient) Drug/Non Drug [...] Problem Status W/U Status Risk Notes Problem 800615330 Encounter for screening for malignant neoplasm of colon (Z12.11) Active confirmed Problem Screening for malignant neoplasm of rectum (875462157) Encounter for screening for malignant neoplasm of rectum (Z12.12) Active confirmed Problem 73446529 Preprocedural examination (Z01.818) Active confirmed Problem 748326980 History of colon polyps (Z86.010) Active confirmed Problem 931686756 Fatty liver (K76.0) Active confirmed Problem Diverticulosis of colon (967791458) Diverticulosis of colon (K57.30) Active confirmed Plan Of Treatment Pending Test Test Name Order Date Pathology 04/16/2021 Future Test Test Name Order Date COLONOSCOPY 06/14/2015 COLONOSCOPY 03/20/2021 Insurance Providers Payer Name Payer Address Payer Phone Subscriber Number Group Number Insured Name Patient Relationship to Insured Coverage Start Date Coverage End Date [facility] [address] [place] [address] [id number] ALEXANDRO VALLEJO Self - patient is the insured Medical (General) History Medical History History ICD Code Denies MS,DM,CVA,Lung disease,renal dise ase GERD-rarely uses PPI Depression Fatty liver on the [place] in 2014 but nor mal LFT's in 2013 Colonoscopies age 32(in [facility]) and approx 2009(in [place]) with removal of polyps; colonoscopy 08/2015 with only a hyperplastic polyp Asthma Surgical History Surgery Date(Month/Year) Sinus surgery x2 Varicocele x 2
[2025-01-27 08:06] VITALS: BP 136/90; PULSE 79; TEMP 36.1; O2SAT 97; BMI 28.7
--- NOTE | 2025-01-27 08:06 | MHC.PC.OV ---
Vital Signs 01/27/25 08:06 Height 5 ft 9 in Weight 194 lb 4 oz BMI 28.7 BP 136/90 H Blood Pressure Location Rt brachial Position Sitting Pulse 79 Pulse Source Pulse Oximeter Temp 97.0 F Temp Source Temporal Artery Scan Pulse Oximetry (%) 97 Oxygen Delivery Method Room Air Intake Visit Reasons: discuss weight loss medication Allergies levofloxacin Allergy (Severe, Verified 01/27/25 08:09) Difficulty Breathing Tobacco use date assessed: 01/27/25 Dental Screening Dental Screen Date: 01/27/25 Did you have a dental visit in the last 12 months?: Yes Did you have a dental problem in the last 6 months where you did not have access to dental care?: No Was dental information given to patient?: Patient has dentist [facility] Medical History Chronic back pain Sinusitis GERD (gastroesophageal reflux disease) Anxiety Dyspnea Allergic rhinitis Nocturia Erectile dysfunction due to arterial insufficiency Chronic prostatitis Major depression Eczema craquele History of varicocele Asthma Varicocele present on ultrasound of scrotum Surgical History History of testicular surgery Hx of sinus surgery H/O colonoscopy (04/16/21) S/P scrotal varicocelectomy Family History Mother No problems noted. Father No problems noted. 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 1. Little interest or pleasure in doing things: nearly every day 2. Feeling down, depressed, or hopeless: nearly every day 3. Trouble falling or staying asleep, or sleeping too much: not at all 4. Feeling tired or having little energy: several days 5. Poor appetite or overeating: not at all 6. Feeling bad about yourself - or that you are a failure or have let yourself or your family down: more than half the days 7. Trouble concentrating on things, such as reading the newspaper or watching television: nearly every day 8. Moving or speaking so slowly that other people could have noticed. Or the opposite - being so fidgety or restless that you have been moving around a lot more than usual: not at all 9. Thoughts that you would be better off or of hurting yourself in some way: not at all Total score: 12 Source: Developed by Drs. Fermin Quiñonez, Sara Gonzalez, Nish Hernandez and colleagues, with an educational isiah from [employer]. Thrive Questionnaire Date Thrive assessed: 11/04/24 I am a: Patient What is your living situation today?: I have a steady place to live Within the past 12 months, did the food you bought not last and you didn't have the money to get more?: Never true Within the past 12 months, did you worry whether your food would run out before you got money to buy more?: Never true Do you have trouble paying for medicines?: No Do you have trouble getting transportation to medical appointments?: No Do you have trouble paying your heating and electricity bill?: No Do you have trouble taking care of your child, family member or friend?: No Do you have trouble with day-to-day activities such as bathing, preparing meals, shopping, managing finances, etc.?: No Are you currently unemployed and looking for a job?: No Are you interested in more education?: No Please select the resources that you would like help with: Education Currently or been in a relationship where the following occur: No concerns reported THRIVE Score: 0 AUDIT C Alcohol Use Questionnaire (AUDIT-C) 1. How often do you have a drink containing alcohol?: Never 3. How often do you have six or more drinks on one occasion?: Never Total Score: 0 SHAJI-7 AMB Questionnaire SHAJI-7 Date SHAJI - 7 assessed: 11/04/24 Feeling nervous, anxious, or on edge: 2 = More than half the days Not being able to stop or control worryin = Nearly every day Worrying too much about different things: 3 = Nearly every day Trouble relaxin = Nearly every day Being so restless that it is hard to sit still: 1 = Several days Becoming easily annoyed or irritable: 1 = Several days Feeling afraid as if something awful might happen: 3 = Nearly every day Total SHAJI-7 score (0-4 normal; 5-9 mild; 10-14 moderate; 15-21 severe): 16 Source: Developed by Drs. Fermin Quiñonez, Sara Gonzalez, Nish Hernandez and colleagues, with an educational isiah from [employer]. Physical exam (Primary Care) Vital Signs: Last Vital Signs Temp 97.0 F 01/27/25 08:06 Pulse 79 01/27/25 08:06 BP 136/90 H 01/27/25 08:06 Pulse Ox 97 01/27/25 08:06 Oxygen Delivery Method Room Air 01/27/25 08:06 BMI result Body Mass Index 28.7 Tobacco/Smoking Status: Tobacco use Status Tobacco use date assessed 01/27/25 01/27/25 08:11 Patient Tobacco Use Status Former Tobacco user 01/27/25 08:11 Tobacco use type Cigarette 01/27/25 08:11 e-Cigarette/Vaping Use Never Used 01/27/25 08:11 PHQ-9: PHQ-9 Score PHQ-9: Total score 12 01/27/25 08:11 Thrive Assessment: Date of Thrive Assessment Date Thrive assessed 11/04/24 01/27/25 08:11 Currently or been in a relationship where the following occur: No concerns reported Coding Level of Care Code Est Pt Level 4 (42690) Complex EM visit Add On G2211 Diagnoses Obesity (BMI 30.0-34.9) E66.811 Assessment & Plan Assessment & Plan (1) Obesity (BMI 30.0-34.9): Code(s): E66.811 - Obesity, class 1 Plan History of Present Illness - The patient is a 64-year-old male presenting for weight management consultation. - The patient is seeking medication for weight loss and has been informed that his insurance may cover it with prior authorization. - The patient does not have diabetes, which is a rock factor in determining insurance coverage for the medication. - The patient has been advised to confirm with his insurance whether they cover the medication for weight loss without a diabetes diagnosis. - The patient has been instructed to inquire about the necessary steps for prior authorization if coverage is confirmed. Social History Review of Systems Physical Exam General: Cooperative and healthy appearing Nutritional Appearance: Well nourished Orientation/consciousness: Patient oriented x3 Limitations: No limitations Head: Normal to inspection General: Appearance normal, both eyes and all related structures Neck: Normal visual inspection Chest: Normal palpation of entire chest wall Respiratory: Normal respiratory effort Neurology: Patient oriented x3 Results Plan - The patient should contact his insurance provider to confirm coverage for weight loss medication without a diabetes diagnosis. - If coverage is confirmed, the patient should inquire about the prior authorization process and inform the physician of any required paperwork. - The physician will assist with the paperwork and prescription if the insurance confirms coverage for weight loss. Discussion Notes I discussed with the patient the process of obtaining weight loss medication through his insurance. We reviewed the importance of confirming coverage for weight loss without a diabetes diagnosis and the steps required for prior authorization. I advised the patient to contact his insurance provider to clarify these details and to inform me of any paperwork needed for the authorization process. I assured the patient of my assistance in completing any necessary forms once coverage is confirmed. Patient Instructions - Contact your insurance provider to confirm if they cover the weight loss medication without a diabetes diagnosis. - Ask about the prior authorization process and what paperwork is needed from your doctor. - Inform your doctor through the portal once you have the information from your insurance.
== END 2025-01-27 09:51 | disposition home or self-care (01) ==
LOC: HO.HMCH 07:52
PROVIDERS: PCP Internal Medicine; Visit Provider Internal Medicine
DX: E66.811 Obesity, class 1 (principal); Z68.28 Body mass index [BMI] 28.0-28.9, adult

== ENCOUNTER → 2025-01-27 07:51 | Outpatient (BNVA) | payer OTHER, SELFPAY | PROVIDERS: PCP Internal Medicine; Visit Provider Internal Medicine | DX: E66.811 Obesity, class 1 (principal); Z68.28 Body mass index [BMI] 28.0-28.9, adult | CPT/HCPCS: 96127; 99212 ==

== ENCOUNTER 2025-04-17 22:48 | Emergency (ER) | payer OTHER, SELFPAY ==
[2025-04-17 23:00] VITALS: BP 142/83; PULSE 75; RESP 18; TEMP 36.6; O2SAT 98; BMI 26.6
--- NOTE | 2025-04-17 23:14 | ED_ITS ---
HPI - Male Genitourinary General Chief complaint: Urogenital-Male Stated complaint: unable to urinate Time Seen by Provider: 04/17/25 23:11 Source: patient Mode of arrival: ambulatory Limitations: no limitations History of Present Illness ED Provider: Moises DE SOUZA HPI Narrative: Patient is a 64-year-old male with a history of BPH who presents to the ED for acute difficulty with urination that began this morning. He last successfully voided approximately 2 hours prior to arrival but reports sensation of incomplete voiding, dysuria, and dribbling that occurs after urination, also reports feeling the urge to urinate about every 30 minutes throughout the day. His last two attempts to void produced no urine. He has a known history of an enlarged prostate and remote history of prostatitis but states these conditions have never caused similar symptoms. He denies fevers and has no history of self- catheterization or recent bladder instrumentation. He reports associated constipation. The patient reports he was recently placed on Bactrim by Dr. Dudley from Urology after last week to report bilateral thigh and hamstring pain for which Dr. Dudley was concerned with a possible UTI and initiated Bactrim. Patient reports being on Bactrim for the past 3 days. Patient also reports a history of anxiety, reports his anxiety is causing him transient shortness of breath and dry mouth. Related Data Home Medications ?Medication ?Instructions ?Recorded ?Confirmed bupropion HCl 300 mg 24 hr tablet, 300 mg PO QAM 10/19 extended release lamotrigine 200 mg tablet 200 mg PO DAILY 01/06/25 loratadine 10 mg tablet 10 mg PO DAILY 01/06/25 lorazepam 1 mg tablet 1 mg PO BID 01/06/25 sertraline 50 mg tablet (Zoloft) 50 mg PO DAILY Previous Rx's ?Medication ?Instructions ?Recorded albuterol sulfate 90 mcg/actuation 2 inh inhalation Q6 -8H PRN 09/20/24 aerosol inhaler shortness of breath or wheez ing 1 month #8.5 grams omeprazole 40 mg capsule,delayed 40 mg PO DAILY #90 ca ps 02/17/25 release tamsulosin 0.4 mg capsule (Flomax) 0.4 mg PO DAILY 90 days #90 caps 02/18/25 tramadol 50 mg tablet 50 mg PO Q8H PRN pain 7 days #15 02/18/25 tabs tadalafil 20 mg tablet 20 mg PO ONCE PRN sexual act ivity 03/09/25 30 days #30 tabs tirzepatide 5 mg/0.5 mL 5 mg (0.5 mL) subcut QWEEK 4 weeks 03/28/25 subcutaneous pen injector #2 mL naproxen 500 mg tablet (Naprosyn) 500 mg PO Q12H PRN p ain 30 days 04/13/25 #60 tabs sulfamethoxazole 800 1 tab PO BID 14 days #28 tab s 04/13/25 mg-trimethoprim 160 mg tablet (Bactrim DS) Allergies Allergy/AdvReac Type Severity Reaction Status Date / Time levofloxacin Allergy Severe Difficulty Verified 04/17/25 23:02 Breathing Review of Systems 2 Review of Systems: Yes all other systems are reviewed and are negative [facility] Past Medical History Medical History Chronic back pain Sinusitis GERD (gastroesophageal reflux disease) Anxiety Dyspnea Allergic rhinitis Nocturia Erectile dysfunction due to arterial insufficiency Chronic prostatitis Major depression Eczema craquele History of varicocele Asthma Varicocele present on ultrasound of scrotum Surgical History History of testicular surgery Hx of sinus surgery H/O colonoscopy (04/16/21) S/P scrotal varicocelectomy Family History Family History Mother No problems noted. Father No problems noted. 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[employer] Cognitive needs: No Hearing needs: No Vision needs: Yes Physical Exam 2 Vital Signs: Vital Signs: Last Vital Signs Temp 97.8 F 04/17/25 23:17 Pulse 72 04/18/25 00:18 Resp 16 04/18/25 00:18 BP 134/80 04/18/25 00:18 Pulse Ox 98 04/18/25 00:18 O2 Del Method Room Air 04/18/25 00:18 BMI result Body Mass Index 26.6 CONSTITUTIONAL: The patient appears uncomfortable, otherwise non-toxic, well nourished and in no acute distress. Vital signs as documented. HEAD: Atraumatic, normocephalic. EYES: EOMs grossly intact, pupils equal, conjunctiva clear, no exudate. ENT: Nares patent, no discharge. Airway patent, no audible stridor, visible mucosa is pink and moist without noted lesions. NECK: Trachea is midline, no obvious masses or gross abnormalities. CHEST: Symmetric movement, normal appearance. LUNGS: LS present and CTAB, no w/r/r. Non-labored work of breathing. CARDIAC: Regular Rhythm, S1/S2 appreciated, no murmurs, rubs or gallops. ABDOMEN: Abdomen soft and non-tender x4 quadrants, positive tenderness to palpation of the suprapubic region. No palpable masses or organomegaly. : Deferred. EXTREMITIES: Normal tone, moves all extremities spontaneously without reported pain. No obvious acute injury or deformity noted. NEURO: Alert and oriented x3, CN II-XII appear grossly intact. Cerebellar Functioning grossly intact. No obvious sensory or motor deficits. Speech clear and appropriate. PSYCH: normal affect, appropriate eye contact, fluid speech, with appropriate response to questioning. No reported suicidality or homicidality. SKIN: Warm, dry, color appropriate, normal turgor. No rashes noted. Medications Administered Discontinued Medications Generic Name Dose Route Start Last Admin Trade Name Freq PRN Reason Stop Dose Admin Lidocaine HCl 20 ml 04/17/25 23:54 04/18/25 00:16 Lidocaine Hcl 2 % Urojet 10 Ml Jel.Pf.Damien TOPICAL 04/17/25 23:55 20 ml ONCE ONE Administration Medical Decision Making Medical Decision Making [facility] Narrative: 11:29 PM 04/17/2025 (Christiano DE SOUZA): Patient is a 64-year-old male with a history of BPH who presents to the ED for acute difficulty with urination that began this morning. He last successfully voided approximately 2 hours prior to arrival but reports sensation of incomplete voiding, dysuria, and dribbling that occurs after urination, also reports feeling the urge to urinate about every 30 minutes throughout the day. His last two attempts to void produced no urine. He has a known history of an enlarged prostate and remote history of prostatitis but states these conditions have never caused similar symptoms. He denies fevers and has no history of self-catheterization or recent bladder instrumentation. He reports associated constipation. The patient reports he was recently placed on Bactrim by Dr. Dudley from Urology after last week to report bilateral thigh and hamstring pain for which Dr. Dudley was concerned with a possible UTI and initiated Bactrim. Patient reports being on Bactrim for the past 3 days. Patient also reports a history of anxiety, reports his anxiety is causing him transient shortness of breath and dry mouth. On exam patient has tenderness over the suprapubic region, no significant distention. Exam is otherwise unremarkable. The patient was examined with bladder scanner which shows greater than 500 cc retained urine. The patient will be treated with Coates catheterization and we will obtain basic labs and urinalysis. 12:33 AM 04/18/2025 (Christiano DE SOUZA): The patient had a Coates catheter placed with improvement in discomfort. The patient's laboratory evaluation shows no leukocytosis, significant anemia, electrolyte abnormality, or renal dysfunction. The patient's urinalysis has no evidence of infection, however this may be masked by current Bactrim regimen. The patient will be discharged with leg bag, instructions to follow up with Urology, and instructions to continue Bactrim as directed until finished. Admission/Observation Consideration of admission/observation: Escalation of care including admission/observation considered Lab Data MDM Lab Attestation statement: I reviewed the patient's lab results. 04/17/25 23:16 04/17/25 23:16 Labs: Lab Results 04/17/25 04/18/25 Range/Units 23:16 00:20 WBC 9.1 (4.8-10.8) X10*3/uL RBC 4.30 L (4.60-5.80) X10*6/uL Hgb 13.4 L (14.0-18.0) g/dl Hct 39.8 L (42.0-52.0) % MCV 92.6 (80.0-98.0) fL MCH 31.2 (27.0-33.0) pg MCHC 33.7 (31.0-36.0) g/dl RDW 11.3 (11.0-16.0) % Plt Count 321 D (160-400) X10*3/uL MPV 8.9 L (9.4-12.4) fL Immature Gran % (Auto) 0.3 (0.0-0.4) % Neut % (Auto) 55.7 (45-73) % Lymph % (Auto) 31.8 (20-40) % Hudson % (Auto) 7.7 (2-11) % Eos % (Auto) 4.0 (0-4) % Baso % (Auto) 0.5 (0-2) % Lymph # (Auto) 2.9 (1.2-4.9) X10*3/uL Hudson # (Auto) 0.7 (0.1-1.2) X10*3/uL Eos # (Auto) 0.4 (0.0-0.4) X10*3/uL Baso # (Auto) 0.1 (0.0-0.2) X10*3/uL Abs Immat Gran (auto) 0.03 (0.00-0.03) X10*3/uL Absolute Neuts (auto) 5.1 (2.0-8.3) x10*3/uL Absolute Nucleated RBC 0.000 (0.0-0.012) X10*3/uL Nucleated RBC % (auto) 0.0 (0.0-0.2) /100WBC Sodium 139 (135-145) mmol/L Potassium 3.9 (3.3-5.1) mmol/L Chloride 104 (96-108) mmol/L Carbon Dioxide 26 (22-29) mmol/L Anion Gap 13 (12-20) BUN 14 (9-16) mg/dL Creatinine 1.03 (0.5-1.4) mg/dL Estim Creat Clear Calc 74.3 Estimated GFR > 60 Random Glucose 86 (60-115) mg/dL Calcium 10.0 (8.4-10.2) mg/dL Total Bilirubin 0.3 (0.0-1.0) mg/dL AST 26 (5-37) U/L ALT 22 (0-40) U/L Alkaline Phosphatase 98 (39-117) U/L Total Protein 7.1 (6.5-8.0) g/dL Albumin 4.6 (3.5-5.0) g/dL Urine Color Yellow Urine Appearance Clear Urine pH 7.5 (5.0-9.0) Ur Specific Britton <= 1.005 (1.005-1.025) Urine Protein Negative (Neg-Trace) mg/dL Urine Glucose (UA) Negative (Negative) mg/dL Urine Ketones Negative (Negative) mg/dL Urine Blood Negative (Negative) Urine Nitrite Negative (Negative) Ur Leukocyte Esterase Negative (Negative) Discharge Plan Discharge Clinical Impression: Acute retention of urine Patient Disposition: Home, Self-Care Instructions: Urinary Retention in Men (ED), Coates Catheter Placement and Care (ED), How to Change a Catheter Drainage Bag (DC) Additional Instructions: Thank you for choosing [facility]'s Emergency Department for your care today. Thankfully your laboratory evaluation, urinalysis, exam, and vital signs today are reassuring. At this time there is no indication for admission to the hospital or continued ED observation, and it is safe to discharge you home. Your symptoms appear to be caused by an acute retention of urine, this can be caused by a combination of enlarged prostate, constipation, and infection. Your urinary retention was treated with a Coates catheter which has been left in place. Please leave this in place until follow up with the Urology Clinic and removal as directed by them. Please continue taking the Bactrim prescribed by Dr. Dudley as directed until it is finished. You should take alternating (staggered) doses of ibuprofen 600mg and Tylenol 1000mg every 4 hours as needed for any additional pain. Please stay well hydrated and get plenty of rest. Please also follow up with your primary care physician for re-evaluation, additional management of your symptoms, and continued preventative care. If you do not have a primary care physician, please call the [facility] at [phone] to establish a new primary care physician. While waiting to establish your new primary care physician, you can call our Walk-in Care Clinic at [phone] for non-emergency needs. Please return to the emergency department if you develop a severe or sudden change in your symptoms, a fever over 100.4 that does not improve with Tylenol or Ibuprofen, recurrent vomiting, or any other new or worsening symptoms or concerns. Prescriptions: No Action albuterol sulfate 90 mcg/actuation HFA aerosol inhaler 2 inh inhalation Q6-8H PRN (Reason: shortness of breath or wheezing) 30 Days Qty: 8.5 2RF bupropion HCl 300 mg tablet extended release 24 hr 300 mg PO QAM omeprazole 40 mg capsule,delayed release(DR/EC) 40 mg PO DAILY Qty: 90 0RF tamsulosin [Flomax] 0.4 mg capsule 0.4 mg PO DAILY 90 Days Qty: 90 0RF tramadol 50 mg tablet 50 mg PO Q8H PRN (Reason: pain) 7 Days Qty: 15 0RF tadalafil 20 mg tablet 20 mg PO ONCE PRN (Reason: sexual activity) 30 Days Qty: 30 4RF Rx Instructions: Use 60 minutes prior to intended activity USE [employer] NOT INSURANCE tirzepatide 5 mg/0.5 mL pen injector 5 mg subcut QWEEK 28 Days Qty: 2 0RF Rx Instructions: for 4 weeks sulfamethoxazole-trimethoprim [Bactrim DS] 800-160 mg tablet 1 tab PO BID 14 Days Qty: 28 0RF naproxen [Naprosyn] 500 mg tablet 500 mg PO Q12H PRN (Reason: pain) 30 Days Qty: 60 0RF lamotrigine 200 mg tablet 200 mg PO DAILY lorazepam 1 mg tablet 1 mg PO BID sertraline [Zoloft] 50 mg tablet 50 mg PO DAILY loratadine 10 mg tablet 10 mg PO DAILY ipratropium-albuterol 0.5 mg-3 mg(2.5 mg base)/3 mL solution for nebulization 3 ml inhalation ONCE Qty: 3 0RF Referrals: Bandar Chavarria MD [Primary Care Provider, Internal Medicine] Clinical Impression: Acute retention of urine Print Language: Slovenian
[2025-04-17 23:17] VITALS: BP 142/78; PULSE 71; RESP 16; TEMP 36.6; O2SAT 99
[2025-04-17 23:23] LABS: MANUAL DIFF FLAG NO
[2025-04-17 23:25] LABS: Hematocrit 39.8 % (42.0-52.0); Hemoglobin 13.4 g/dl (14.0-18.0); Imm Gran Abs Auto 0.03 X10*3/uL (0.00-0.03); Imm Gran Pct Auto 0.3 % (0.0-0.4); Lymphocytes Absolute Auto 2.9 X10*3/uL (1.2-4.9); Mean Corpuscular HGB Conc 33.7 g/dl (31.0-36.0); Mean Corpuscular Hemoglobin 31.2 pg (27.0-33.0); Mean Corpuscular Volume 92.6 fL (80.0-98.0); NRBC Abs Auto 0.000 X10*3/uL (0.0-0.012); NRBC Pct Auto 0.0 /100WBC (0.0-0.2); Platelet Count 321 X10*3/uL (160-400); Red Blood Count 4.30 X10*6/uL (4.60-5.80); White Blood Count 9.1 X10*3/uL (4.8-10.8)
[2025-04-17 23:38] LABS: Anion Gap 13 (12-20)
[2025-04-17 23:49] LABS: Alanine Aminotransferase 22 U/L (0-40); Albumin Level 4.6 g/dL (3.5-5.0); Alkaline Phosphatase 98 U/L (39-117); Aspartate Amino Transferase 26 U/L (5-37); Blood Urea Nitrogen 14 mg/dL (9-16); Calcium 10.0 mg/dL (8.4-10.2); Carbon Dioxide 26 mmol/L (22-29); Chloride 104 mmol/L (96-108); Creatinine Clr Calc Pharmacy 74.3; Estimated Glomerular Filt Rate > 60; Potassium 3.9 mmol/L (3.3-5.1); Sodium 139 mmol/L (135-145); Total Protein 7.1 g/dL (6.5-8.0)
[2025-04-18] MEDS: Lidocaine HCl 2 % Urojet 10 ML JEL.PF.APP 20 ML TOPICAL (00:16)
[2025-04-18 00:18] VITALS: BP 134/80; PULSE 72; RESP 16; O2SAT 98
[2025-04-18 00:26] LABS: Appearance Urine Clear; Glucose Urine UA Negative (Negative); PH 7.5 (5.0-9.0); Specific Gravity - Urine <= 1.005 (1.005-1.025)
--- OUTSIDE RECORDS SUMMARY | 2025-04-18 00:28 | XMS_ITS | Clinical Summary ---
Author Organization [facility] Address [address] [place] [address] Phone Care Team Providers Care Hotel Engineer Name Role Phone Harpal Bob DO Primary Care Provider [phone] Allergies No known active allergies Social History [...] Medical Devices Not on file Care Teams Hotel Engineer Relationship Specialty Start Date End Date Harpal Bob DO [address] [place] [address] PCP - General 10/26/13 Additional Source Comments The information contained in this document represents components of the legal health record. It is not the complete legal health record.[facility]
--- OUTSIDE RECORDS SUMMARY | 2025-04-18 00:28 | XMS_ITS | Clinical Summary ---
Author Organization [facility] Address [address] [place] [address] Care Team Providers Care Marketing Editor Name Role Phone Unavailable Primary Care Provider [...] of 2) 2012 COVID-19 Vaccine ( - 2024-2 6 season) 2024 Influenza Vaccine (#1) 2024 RSV [...]
--- OUTSIDE RECORDS SUMMARY | 2025-04-18 00:28 | XMS_ITS | Continuity of Care Document ---
Author Organization [place] - [facility], [facility] Address [address] [place] [address] Care Team Providers Care Fuel Oil Clerk Name Role Phone [facility] Primary Care Provider Assessment Encounter Date Assessment Date Assessment LastModified by Organization Details LastModified Time 03/29/2025 03/29/2025 Assessment: - Chronic nasal congestion, right-sided crusting. - History of sinus surgeries in 2004 and 2014. Plan: The patient will be prescribed a course of antibiotics to address potential bacterial infection contributing to nasal congestion. The prescription will be sent to [facility] on [facility] in [place]. The patient is advised to continue using saline nasal sprays to maintain hydration and reduce crusting. Loratadine is recommended as an antihistamine to manage allergy symptoms, with instructions to use it seasonally or year-round based on symptom severity. Montelukast was previously prescribed but may be discontinued if the patient does not find it beneficial. The patient is counseled to monitor for stomach upset while taking antibiotics and to consume them with food if necessary. Education is provided regarding the safe use of loratadine and the importance of resuming it during allergy seasons if symptoms worsen. [email or web address] Not available 03/29/2025 09:43:34 Plan of Treatment Reminders Order Date Submit Date Provider Last Modified By Organization Details Last Modified Time Details Appointments None recorded. Lab None recorded. Referral None recorded. Procedures None recorded. Surgeries None recorded. Imaging None recorded. Medication Orders amoxicillin 875 mg-potassiu m clavulanate 125 mg tablet 2024 025 [id number], [address] [facility], [place], [address], 5 05:01:55 Patient TargetsNo targets recorded. Patient Instructions Encounter Date Encounter Id Patient Instructions Last Modified By Organization Details Last Modified Time 03/29/2025 [id number] - Take antibiotics as prescribed and monitor for stomach upset; consume with food if necessary. - Continue using saline nasal sprays to maintain hydration and reduce crusting. - Use loratadine seasonally or year-round based on symptom severity. - Resume loratadine during allergy seasons if symptoms worsen. [email or web address] Not available 03/29/2025 09:43:34 Please note: Parts of this encounter note have been generated by AI based on audio conversation. Patient consent was required prior to utilizing this technology. Content review was required prior to finalizing the note. [email or web address] Not available 03/29/2025 09:43:35 Reason for Referral None Reported. Problems Name Problem SNOMED Code Status Onset Date Resolution Date Notes Provider Name and Address Organization Details Recorded Time Seasonal allergic rhinitis 395845109 Active 2018 Other seasonal allergic rhinitis; Note: Date Diagnosed: 08/10/2018 11:28 AM (J30.2) Not Available [facility] 4 03:01:38 Wheezing 98478603 Active 2018 Wheezing; Note: Date Diagnosed: 08/10/2018 11:28 AM (R06.2) Not Available [facility] 4 03:01:39 Chronic rhinitis 66577443 Active 2018 Chronic rhinitis; Note: Date Diagnosed: 08/10/2018 11:28 AM (J31.0) Not Available [facility] 4 03:01:39 Deviated nasal septum 459982468 Active 2018 Deviated nasal septum; Note: Date Diagnosed: 08/10/2018 11:28 AM (J34.2) Not Available [facility] 4 03:01:41 Allergic rhinitis 37591800 Active 2018 Other allergic rhinitis; Note: Date Diagnosed: 08/10/2018 11:28 AM (J30.89) FROILAN FORREST MD [address] [place] [address], [facility] [place], [address] , [facility] - [facility] 5 11:35:15 Uncomplic ated moderate persisten t asthma 380644988 Active 2018 Moderate persistent asthma, uncomplica truman; Note: Date Diagnosed: 08/10/2018 11:28 AM (J45.40) Not Available [facility] 4 03:01:41 Nasal congestio n 25063905 Active 2018 Nasal congestion ; Note: Date Diagnosed: 08/10/2018 11:28 AM (R09.81) Not Available [facility] 4 03:01:41 Migraine 83080543 Active 2024 FROILAN FORREST MD [address] [facility],[place] [address], [place], [address] , [facility] - [facility] 5 11:35:03 Recurrent acute sinusitis 901110681 Active 2024 FROILAN FORREST MD [address] [place] [address],[place] [address], [place], [address] , [facility] 5 09:41:39 Problem Notes None recorded. Procedures Surgical History Date Name Laterality Status Provider Name and Address Organization Details Recorded Time 09/27/2024 NasalEndos copy_DP completed FROILAN FORREST MD [address] [facility],[place] [address], [place], [address], [facility] 09/27/2024 11:34:33 Imaging Results None recorded. Procedure Notes None recorded. Medical Equipment None Reported. Allergies Allergen ID Allergen Name Allergen Category Reaction Reaction Severity Criticality Documentation Date Start Date Code Code System Note Provider Name and Address Organization Details Recorded Time 015477 [employer] environme nt,medica tion Not available Not available Not available 03/29/2025 54653 6 RxNorm Not Available diane - External Data Service - prod 5 04:35:14 Medications Name Sig Start Date Stop Date Status Note LastModified by Organization Details LastModified Time prednison e 10 mg tablet TAKE 6 TABS X2 DAYS, THEN 5 TABS X1 DAY, 4 TABS X1 DAY, 3 TABS X1 DAY, 2 TABS X1 DAY, 1 TAB X2 DAYS 03/29 completed Not Available Not Available Not Available cetirizin e 10 mg tablet TAKE 1 TABLET BY MOUTH EVERY DAY active Not Available Not Available No t Available azithromy tyson 250 mg tablet TAKE 2 TABLETS BY MOUTH TODAY, THEN TAKE 1 TABLET DAILY FOR 4 DAYS DIRECTED 09/27 completed Not Available Not Available Not Available hydroquin one 4 % topical cream APPLY TOPICALL Y TO DARK SPOTS ON SCALP TWICE DAILY FOR 4 MONTHS, THEN STOP FOR 1 MONTH AND REPEAT active Not Available Not Available No t Available prednison e 20 mg tablet TAKE [...] TAKE 1 CAPSULE BY MOUTH EVERY DAY active Not Available Not Available No t Available tramadol 50 mg tablet TAKE 1 TABLET ORALLY EVERY 8 HOURS NEEDED FOR PAIN FOR 7 DAYS active Not Available Not Available No t Available lamotrigi ne 25 mg tablet TAKE 1 TABLET BY MOUTH ONCE A DAY IF YOU SEE RASH, STOP MEDICATI ON 03/29 completed Not Available Not Available Not Available lorazepam 0.5 mg tablet TAKE 1 TABLET BY MOUTH TWICE A DAY NEEDED active Not Available Not Available No t Available tamsulosi n 0.4 mg capsule TAKE 1 CAPSULE BY MOUTH EVERY DAY active Not Available Not Available No t Available butalbita l-aspirin -caffeine 50 mg-325 mg-40 mg capsule TAKE 1 CAPSULE BY MOUTH EVERY 12 HOURS NEEDED FOR PAIN active Not Available Not Available No t Available magnesium citrate oral solution PLEASE SEE ATTACHED FOR DETAILED DIRECTIO NS [...] mg tablet 09/27 completed Medicati on ID: [id number] D uration Value: 90 Brand Name: lamvanessag ine Send Method: E-Prescr ibed Sub s Allowed: [...] ORALLY EVERY 12 HOURS NEEDED FOR PAIN FOR 30 DAYS active Not Available Not Available No t Available amoxicill in 875 mg-potass ium clavulana te 125 mg tablet Take 1 tablet every 12 hours by oral route for 7 days. 04/12 completed Not Available Not Available Not Available Laxative (bisacody l) 5 mg tablet,de layed release TAKE 2 TABLET (ORAL) EVERY DAY AT BEDTIME FOR 3 DAYS active Not Available Not Available No t Available bupropion HCl XL 300 mg 24 hr tablet, extended release TAKE 1 TABLET BY MOUTH EVERY DAY active Not Available Not Available No t Available bupropion HCl XL 150 mg 24 hr tablet, extended release TAKE 1 TABLET BY MOUTH EVERY DAY active Not Available Not Available No t Available tadalafil 20 mg tablet TAKE 1 TABLET BY MOUTH ONCE DAILY, 60 MINUTES PRIOR TO SEXUAL ACTIVITY NEEDED active Not Available Not Available No t Available Allergy Relief D12 5 mg-120 mg tablet,ex tended release TAKE 1 TAB ORALLY EVERY 12 HOURS NEEDED FOR ALLERGY SYMPTOMS active Not Available Not Available No t Available duloxetin e 60 mg capsule,d elayed release 09/27 completed Medicati on ID: [id number] D uration Value: 90 Brand Name: duloxeti [...] inhalatio n 2018 active Medicati on ID: [id number] D uration Value: 30 Brand Name: Silvia Gonsalezta Send Method: E-Prescr ibed Sub s Allowed: subs OK Speci al Instruct ion: INHALE 1 PUFF INTO THE LUNGS DAILY FOR 30 DAYS. Me dication GenericN renan: Incruse Ellipta Not Available Not Available Not Available Opzelura 1.5 % topical cream APPLY TO ARMS, LEGS, TRUNK TWICE DAILY NEEDED FOR FLARES active Not Available Not Available No t Available Mounjaro 2.5 mg/0.5 mL subcutane ous pen injector INJECT 2.5 MG (0.5 ML) SUBCUTAN EOUSLY EVERY WEEK FOR 4 WEEKS active Not Available Not Available No t Available Vitals Date Recorded Body height Provider Name an d Address Organization Details Last Updated DateTime 03/29/2025 180.34 cm TERESITA NICHOLSON [place] - [facility] 03/29/2025 09:15:12 Social History None recorded. Functional Status Question [...] ICD10 Code Diagnosis IMO Codes Diagnosis Note [id number] FROILAN FORREST MD [facility] [address] [place] [address] 03/29/2025 08:59:34 03/29/2025 14:15:46 Recurrent acute sinusitis 885374301 J01.81 1927590 Deviated nasal septum 12 0373513 J34.2 Allergic rhinitis 112562 04 J30.9 3656987 Health Concerns Section Related Observation LastModified by Organization Detai ls LastModified Time None Recorded Concern Status LastModified by Organization Details LastModified Time None Recorded Payers Encounter Date Sequence Insurance Name Policy Number Policy Shetty Covered Member ID Shetty Member ID Guarantor Name 03/29/2025 1 [facility] - DOS ON OR AFTER 2022 - ONE CARE (MEDICARE REPLACEMENT/ADV ANTAGE - HMO) Froilan Bartlett [id number] Froilan Bartlett Notes Date Note Type Note Provider Name and Address Organization Details Recorded Time 03/29/2025 text/html ROS as noted in the HPI nasal congestion f/u PV 09/27/24 Oh right headaches c/w migraine. nasal congestion rx azelastine, loratadine, montelukast rFoilan Bartlett is a 64-year-old male who presents for nasal congestion. He reports no improvement in symptoms through the summer and fall despite using azelastine nasal spray and saline rinses. He discontinued loratadine and montelukast due to confusion about their efficacy. He has a history of sinus surgeries in 2004 [address] Fiore. He notes increased congestion recently, particularly on the right side, and mentions difficulty during the fall season due to exposure to leaves. He denies tenderness upon palpation of the sinuses and reports being able to smell certain foods, such as peppers and onions, but does not mention significant changes in his sense of smell. He has not used antibiotics for sinus infections in quite some time and denies any difficulty tolerating antibiotics in the past. FROILAN FORREST MD [address] [place] [address], [address], [facility] - [facility] 03/29/2025 09:44:22
--- OUTSIDE RECORDS SUMMARY | 2025-04-18 00:28 | XMS_ITS | Patient Health Record ---
Author Organization [facility] Address [address] [place] [address] Care Team Providers Care Line Inspector Name Role Phone KEEGAN BENDER Primary Care Provider Fermin Sandoval Unavailable [phone] Allergies Allergen (clinical drug ingredient) Drug/Non Drug Allergy documented on EMR Reaction Allergy Type Onset Date Status Dust Mites Unknown Allergy Active Pollen Pollen Unknown Allergy Active Ragweed Unknown Allergy Active Reason For Referral No Information Medications Medication SIG (Take, Route, Frequency, Duration) Notes Start Date End Date Status Wellbutrin Active lamoTRIgine 100 MG Tablet TAKE 1 TABLET EVERY DAY Oral; Duration: 30 Active LORazepam 0.5 MG Tablet (Schedule IV Tyler g) TAKE 1 TABLET BY MOUTH TWICE A DAY NEEDED FOR ANXIETY Oral as lneeded Rarely uses Active Immunizations Vaccine Route Administration Date Status Comme nts Flu vaccine no Preserv 3 and > Unknown 01/10/2015 Admin istered Influenza Unknown 03/20/2021 Refused Social History Tobacco Use: Social History Observation Description Date Details (start date - stop date) Former Smoker NA - NA Social History Tobacco Use: Social Info Question Answer Notes Tobacco Use/Smoking Patient is a former smoker How long has it been since you last smoked? 1-5 years Additional Details Category Social Info Options Details Miscellaneous: Marital status: Single Occupation: Unemployed--on d isability from depression Section Notes: Smoker; no sig alcohol Smoker; no sig alcohol Problems Problem Type SNOMED Code ICD Code Onset Dates Problem Status W/U Status Risk Notes Problem Screening for malignant neoplasm of colon (320303840) Encounter for screening for malignant neoplasm of colon (Z12.11) Active confirmed Problem Screening for malignant neoplasm of rectum (498750540) Encounter for screening for malignant neoplasm of rectum (Z12.12) Active confirmed Problem Preprocedural examination (900705117778895) Preprocedural examination (Z01.818) Active confirmed Problem History of polyp of colon (situation) (811448072) History of colon polyps (Z86.010) Active confirmed Problem Fatty liver (616201067) Fatty liver (K76.0) Active confirmed Problem Diverticulosis of colon (842561867) Diverticulosis of colon (K57.30) Active confirmed Plan Of Treatment Pending Test Test Name Order Date Pathology 04/16/2021 Future Test Test Name Order Date COLONOSCOPY 06/14/2015 COLONOSCOPY 03/20/2021 Insurance Providers Payer Name Payer Address Payer Phone Subscriber Number Group Number Insured Name Patient Relationship to Insured Coverage Start Date Coverage End Date [facility] [address] [place] [address] [id number] ALEXANDRO VALLEJO Self - patient is the insured Medical (General) History Medical History History ICD Code Denies [place],DM,CVA,Lung disease,renal dise ase GERD-rarely uses PPI Depression Fatty liver on [place] in 2014 but nor mal LFT's in 2013 Colonoscopies age 32(in [facility]) and approx 2008(in [place]) with removal of polyps; colonoscopy 08/2015 with only a hyperplastic polyp Asthma Surgical History Surgery Date(Month/Year) Sinus surgery x2 Varicocele x 2
--- OUTSIDE RECORDS SUMMARY | 2025-04-18 00:28 | XMS_ITS | Encounter Summary ---
Author Organization [employer] Address [address] [facility] [address] [place] [address] Care Team Providers Care Wastewater Supervisor Name Role Phone Unavailable Primary Care Provider Unavailabl e Encounter Details Date Type Department Care Team (Latest Contact Info) Description 02/23/2020 Abstract [facility] CONVERSIONS Dental, Provider, DDS Social [...]
--- OUTSIDE RECORDS SUMMARY | 2025-04-18 00:28 | XMS_ITS | Data Portability ---
Author Organization [place] - [facility], Allergy Address [address] [place] [address] Care Team Providers Care Ear Flap Binder Name Role Phone [facility] Primary Care Provider Assessment Encounter Date [...] check in [email or web address] Not available 09/27/2024 11:38:57 03/29/2025 03/29/2025 Assessment: - Chronic nasal congestion, right-sided crusting. - History of sinus surgeries in 2004 and 2014. Plan: The patient will be prescribed a course of antibiotics to address potential bacterial infection contributing to nasal congestion. The prescription will be sent to [facility] on [facility] in [place]. The patient is advised to continue using [...] m clavulanate 125 mg tablet 2024 025 [facility]/Pharmacy #[id number], [address] [place], [address], 5 05:01:55 azelastine 137 mcg (0.1 %) nasal spray 2024 025 [id number] [address] [place], [address], 5 11:37:11 Claritin 10 mg tablet 2024 025 [id number] [address] [place], [address], 5 11:37:11 Patient TargetsNo targets recorded. Patient Instructions Encounter Date Encounter Id Patient Instructions Last Modified By Organization Details Last Modified Time 03/29/2025 [id number] - Take antibiotics as prescribed and monitor [...] Organization Details Recorded Time Seasonal allergic rhinitis 946715079 Active 2018 Other seasonal allergic rhinitis; Note: Date Diagnosed: 08/10/2018 11:28 AM (J30.2) Not Available [facility] 4 03:01:38 Wheezing 70635359 Active 2018 Wheezing; Note: Date Diagnosed: 08/10/2018 11:28 AM (R06.2) Not Available [facility] 4 03:01:39 Chronic rhinitis 03399518 Active 2018 Chronic rhinitis; Note: Date Diagnosed: 08/10/2018 11:28 AM (J31.0) Not Available [facility] 4 03:01:39 Deviated nasal septum 920761684 Active 2018 Deviated nasal septum; Note: Date Diagnosed: 08/10/2018 11:28 AM (J34.2) Not Available [facility] 4 03:01:41 Allergic rhinitis 66457934 Active 2018 Other allergic rhinitis; Note: Date Diagnosed: 08/10/2018 11:28 AM (J30.89) FROILAN FORREST MD [address] [place] [address], [place], [address] , [facility] 5 11:35:15 Uncomplic ated moderate persisten t asthma 338181278 Active 2018 Moderate persistent asthma, uncomplica truman; Note: Date Diagnosed: 08/10/2018 11:28 AM (J45.40) Not Available [facility] 4 03:01:41 Nasal congestio n 83885107 Active 2018 Nasal congestion ; Note: Date Diagnosed: 08/10/2018 11:28 AM (R09.81) Not Available [facility] 4 03:01:41 Migraine 23092556 Active 2024 FROILAN FORREST MD [address] [place] [address], [place], [address] , [facility] - [facility] 5 11:35:03 Recurrent acute sinusitis 263949785 Active 2024 FROILAN FORREST MD [address] [place] [address], [place], [address] , [facility] 5 09:41:39 Problem Notes None recorded. Procedures Surgical History Date Name Laterality Status Provider Name and Address Organization Details Recorded Time 09/27/2024 NasalEndos copy_DP completed FROILAN FORREST MD [address] [place] [address], [place], [address], [facility] 09/27/2024 11:34:33 Imaging Results None recorded. Procedure Notes None recorded. Medical Equipment None Reported. Allergies Allergen ID Allergen Name Allergen Category Reaction Reaction Severity Criticality Documentation Date Start Date Code Code System Note Provider Name and Address Organization Details Recorded Time 889517 [employer] environme nt,medica tion Not available Not available Not available 03/29/2025 79338 6 RxNorm Not Available diane - External [...] mg tablet 09/27 completed Medicati on ID: [id number] D uration Value: 90 Brand Name: lamotrig ine Send Method: E-Prescr ibed Sub s [...] elayed release 09/27 completed Medicati on ID: [id number] D uration Value: 90 Brand Name: duloxeti [...] inhalatio n 2018 active Medicati on ID: [id number] D uration Value: 30 Brand Name: Incruse [...] Updated DateTime 09/27/2024 180.34 cm 26.5 kg/m2 35912.55 g TERESITA COMI [place] - [facility] 09/27/2024 11:12:47 Date Recorded Body height Provider Name an d Address Organization Details Last Updated DateTime 03/29/2025 180.34 cm [facility] [place] - [facility] 03/29/2025 09:15:12 Social History None recorded. [...] ICD10 Code Diagnosis IMO Codes Diagnosis Note [id number] FROILAN FORREST MD [facility] [address] [address] 09/27/2024 10:30:31 09/27/2024 11:39:00 Migraine 59009118 G43.909 82415 Allergic rhinitis 114414 04 J30.9 0138372 [id number] FROILAN FORREST MD [facility] of [address] [address] 03/29/2025 08:59:34 03/29/2025 14:15:46 Recurrent acute sinusitis 324450534 J01.81 4715825 Deviated nasal septum 12 0246645 J34.2 Allergic rhinitis 876319 04 J30.9 1148580 Health Concerns Section Related Observation LastModified by Organization Detai ls LastModified Time None Recorded Concern Status LastModified by Organization Details LastModified Time None Recorded Advance Directives Directive None Recorded Payers Insurance Date Sequence Insurance Name Policy Number Policy Shetty Covered Member ID Shetty Member ID Guarantor Name 07/26/2024 1 [facility] Froilan [place] Dhruv [id number] Froilan [place] Dhruv 03/29/2025 1 [facility] - DOS ON OR AFTER 2022 - ONE CARE (MEDICARE REPLACEMENT/ADV ANTAGE - HMO) Froilan [place] Dhruv [id number] Froilan [place] Dhruv 03/29/2025 2 [facility] - DOS ON OR AFTER 2022 - ONE CARE (MEDICARE REPLACEMENT/ADV ANTAGE - HMO) Froilan Penaloza Dhruv [id number] Froilan Penaloza Dhruv 03/28/2025 2 [facility] - DOS ON OR AFTER 2022 - ONE CARE (MEDICARE REPLACEMENT/ADV ANTAGE - HMO) Froilan Penalo[place] Dhruv [id number] Froilan [place]aloza Dhruv Notes Date Note Type Note Provider Name [...] 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 nasal congestion rx azelastine, loratadine, montelukast Froilan Bartlett is a 64-year-old male who presents [...] antibiotics in the past. FROILAN FORREST MD [address] [place] [address], [place], [address], [facility] - [facility] 03/29/2025 09:44:22
--- OUTSIDE RECORDS SUMMARY | 2025-04-18 00:28 | XMS_ITS | Encounter Summary ---
Author Organization [employer] Address [address] [facility] 7t [place] [address] Care Team Providers Care Accounts Specialist Name Role Phone Unavailable Primary Care Provider Unavailabl e Encounter Details Date Type Department Care Team (Latest Contact Info) Description 01/26/2019 Abstract [facility] CONVERSIONS Dental, Provider, DDS Social History [...]
[2025-04-18 01:34] VITALS: BP 123/79; PULSE 72; RESP 16; TEMP 36.6; O2SAT 98
== END 2025-04-18 01:35 | disposition home or self-care (01) ==
PROVIDERS: Emergency Provider Student in an Organized Health Care Education/Training Program; PCP Internal Medicine
DX: R33.9 Retention of urine, unspecified (principal); Z87.891 Personal history of nicotine dependence
CPT/HCPCS: 36415; 80053; 81003; 85025

== ENCOUNTER 2025-04-18 07:58 | Emergency (ER) | payer OTHER, SELFPAY ==
[2025-04-18] VITALS (8 sets, daily range): BP systolic 113–134; BP diastolic 69–94; PULSE 63–96; RESP 15–16; TEMP 36–36.4; O2SAT 96–99; BMI 26.4
--- NOTE | 2025-04-18 | ECG_ITS ---
Test Reason : near syncope Blood Pressure : */* mmHG Vent. Rate : 78 BPM Atrial Rate : 78 BPM P-R Int : 128 ms QRS Dur : 74 ms QT Int : 382 ms P-R-T Axes : 64 55 72 degrees QTcB Int : 435 ms Normal sinus rhythm Normal ECG When compared with ECG of 14-Jun-2022 09:41, No significant change was found Referred By: Generic ED Physician Electronically Signed By: KAR FAN MD
--- NOTE | ~2025-04-18 | XR_ITS ---
EXAMINATION: XR CHEST 1 VIEW HISTORY: pre syncope COMPARISON: Comparison is made with the prior examination dated 05/24/2024. FINDINGS: A single AP portable view of the chest performed at 9:01 AM is submitted. The lungs are expanded and clear. There is no pleural effusion, pneumothorax, or pulmonary vascular congestion. The heart is normal in size. There is degenerative disc disease of the spine. XR/XR chest 1V IMPRESSION: No acute cardiopulmonary abnormality. Electronically signed by: Fermin Dye MD 04/18/2025 09:11 AM [facility]
--- NOTE | ~2025-04-18 | CT_ITS ---
EXAMINATION: CT HEAD WITHOUT IV CONTRAST HISTORY: dizziness, N/V. TECHNIQUE: Unenhanced helical CT of the head was performed per standard departmental protocol. Coronal and sagittal reformats of the head were also evaluated. One or more of the following techniques was used for dose reduction: Automated exposure control, adjustment of the mA and/or kV according to patient size, use of iterative reconstruction technique. DLP: 765 mGy-cm COMPARISON: Comparison is made with the prior examination dated 05/18/2022. FINDINGS: BRAIN: The brain parenchyma is unremarkable. There is normal estrada/white differentiation. The ventricular system is normal in size and configuration. There is no mass effect or midline shift. No intra- or extra-axial fluid collections are identified. SINUSES: There is partial opacification of the bilateral ethmoid air cells. The mastoid air cells and middle ear cavities are well pneumatized. ORBITS: The visualized orbits are unremarkable. BONES/SOFT TISSUES: The extracranial soft tissues are unremarkable. The calvarium is intact. No suspicious lytic or sclerotic lesions. CT/CT head/brain wo IV con IMPRESSION: No acute intracranial abnormality. Electronically signed by: Fermin Dye MD 04/18/2025 08:56 AM EST
--- NOTE | 2025-04-18 08:26 | ED.DIZZY ---
HPI - Dizziness General Chief Complaint: Nausea/Vomiting/Diarrhea Stated Complaint: near syncope, vomiting, sweats Time Seen by Provider: 04/18/25 08:14 Source: patient, RN notes reviewed and old records reviewed Mode of arrival: ambulatory History of Present Illness ED Provider: Juliet Reyes PA-C HPI Narrative: 64-year-old male with a past medical history of GERD, anxiety, asthma, BPH, urinary retention with Coates catheter placement last night in our ED, presenting to the ED today complaining of dizziness described as room spinning, lightheadedness & presyncope and nausea with 1 episode of emesis this morning. reports symptomatic improvement at present. Denies other associated symptoms including chest pain, shortness of breath, headache, vision change or loss, weakness, numbness / tingling, abdominal pain Related Data Home Medications ?Medication ?Instructions ?Recorded ?Confirmed bupropion HCl 300 mg 24 hr tablet, 300 mg PO QAM 10/19/24 extended release lamotrigine 200 mg tablet 200 mg PO DAILY 01/06/25 loratadine 10 mg tablet 10 mg PO DAILY 01/06/25 lorazepam 1 mg tablet 1 mg PO BID 01/06/25 sertraline 50 mg tablet (Zoloft) 50 mg PO DAILY 01/06/25 Previous Rx's ?Medication ?Instructions ?Recorded albuterol sulfate 90 mcg/actuation 2 inh inhalation Q6-8H PRN 09/20/24 aerosol inhaler shortness of breath or wheezing 1 month #8.5 grams omeprazole 40 mg capsule,delayed 40 mg PO DAILY #90 caps 02/17/25 release tamsulosin 0.4 mg capsule (Flomax) 0.4 mg PO DAILY 90 days #90 caps 02/18/25 tramadol 50 mg tablet 50 mg PO Q8H PRN pain 7 days #15 02/18/25 tabs tadalafil 20 mg tablet 20 mg PO ONCE PRN sexual activity 03/09/25 30 days #30 tabs tirzepatide 5 mg/0.5 mL 5 mg (0.5 mL) subcut QWEEK 4 weeks 03/28/25 subcutaneous pen injector #2 mL naproxen 500 mg tablet (Naprosyn) 500 mg PO Q12H PRN pain 30 days 04/13/25 #60 tabs sulfamethoxazole 800 1 tab PO BID 14 days #28 tabs 04/13/25 mg-trimethoprim 160 mg tablet (Bactrim DS) Allergies Allergy/AdvReac Type Severity Reaction Status Date / Time levofloxacin Allergy Severe Difficulty Verified 04/18/25 08:10 Breathing Review of Systems Review of Systems: Yes all other systems are reviewed and are negative Constitutional: Constitutional: Reports as per HPI Neurologic: Denies Abnormal speech present [facility] Past Medical History Attestation statement: The following information was validated with the patient. Source: old records reviewed Medical History Chronic back pain Sinusitis GERD (gastroesophageal reflux disease) Anxiety Dyspnea Allergic rhinitis Nocturia Erectile dysfunction due to arterial insufficiency Chronic prostatitis Major depression Eczema craquele History of varicocele Asthma Varicocele present on ultrasound of scrotum Surgical History History of testicular surgery Hx of sinus surgery H/O colonoscopy (04/16/21) S/P scrotal varicocelectomy Family History Family History Mother No problems noted. Father No problems noted. 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[employer] Cognitive needs: No Hearing needs: No Vision needs: Yes Physical Exam Vital Signs: Vital Signs: Last Vital Signs Temp 97.6 F 04/18/25 14:15 Pulse 82 04/18/25 14:15 Resp 16 04/18/25 14:15 BP 134/70 04/18/25 14:15 Pulse Ox 97 04/18/25 14:15 O2 Del Method Room Air 04/18/25 14:15 BMI result Body Mass Index 26.4 Const: General: cooperative, healthy appearing and no acute distress Orientation/consciousness: patient oriented x3 Limitations: no limitations HEENT: Head: Yes normal to inspection and Yes atraumatic Ears: hearing grossly normal bilaterally General nose exam: Normal external nose present Face and sinus: Yes normal facial exam Mouth: Normal oral and palatal mucosa present Throat: Yes posterior oropharynx normal Eyes: General: appearance normal, both eyes and all related structures Pupils: Equal, round and reactive pupils present EOM: EOMs intact bilaterally Neck: Neck: Yes normal visual inspection and Yes no meningeal signs Resp: Effort & Inspection: normal respiratory effort and no respiratory distress Auscultation: clear to auscultation bilaterally Cardio: Rate: regular rate Heart sounds: S1 normal heart sound present and S2 normal heart sound present GI: Inspection: Yes normal to inspection Palpation (GI): Soft to palpation, nontender, no guarding and not rigid Skin: Rashes: no rashes Wounds: no wounds Neuro: General: patient oriented x3, gait normal, tone normal, moves all extremities, no meningeal signs, no focal motor deficits and CN's II-XI intact bilaterally Cranial nerves: Yes CN's II-XII intact bilaterally, Yes Equal, round and reactive pupils present and Yes Bilaterally intact EOM present Cognition (Neuro): normal cognition Speech: No Abnormal speech present Gait exam (Neuro): Normal gait present Motor exam (neuro): 5/5 motor strength present throughout, Pronator motor function not present and no tremor noted Coordination: [id number] test normal Romberg Test: Negative Extrem: General: Yes normal to inspection Course Course Course Narrative: 10:34 AM 04/18/2025 (Juliet Reyes PA-C): labs reassuring. Initial troponin negative. Viral testing negative. orthostatic vital signs negative - Head CT & CXR unremarkable > pending repeat troponin 12:27 PM 04/18/2025 (Juliet Reyes PA-C): repeat troponin unremarkable. Patient is safe for discharge home at this time Results discussed with patient including worrisome signs and symptoms and strict return precautions, and when to return to the emergency department. They verbalized understanding and feel safe for discharge at this time. Medications Administered Discontinued Medications Generic Name Dose Route Start Last Admin Trade Name Freq PRN Reason Stop Dose Admin Sodium Chloride 1,000 mls @ 999 mls/hr 04/18/25 08:30 04/18/25 10:49 Ns IV 04/18/25 09:30 Infused .Q1H1M ARTURO Infusion Sodium Chloride 500 mls @ 999 mls/hr 04/18/25 10:45 04/18/25 11:23 Ns IV 04/18/25 11:15 Infused .Q31M ARTURO Infusion Lorazepam 1 mg 04/18/25 09:03 04/18/25 09:10 Lorazepam 1 Mg Tablet PO 04/18/25 09:04 1 mg ONCE ONE Administration Ondansetron HCl 4 mg 04/18/25 08:26 04/18/25 09:00 Ondansetron Hcl 4 Mg/2 Ml Vial IVPUSH 04/18/25 08:27 4 mg ONCE ONE Administration Medical Decision Making Medical Decision Making [facility] Narrative: 64-year-old male with a past medical history of GERD, anxiety, asthma, BPH, urinary retention with Coates catheter placement last night in our ED, presenting to the ED today complaining of dizziness described as room spinning, lightheadedness & presyncope and nausea with 1 episode of emesis this morning. On exam vital signs stable, NAD, asymptomatic at present, no focal neuro deficits, abdomen is soft and nontender. Ambulating with steady gait no ataxia. Concern for metabolic abnormalities vs vasovagal / orthostasis vs atypical ACS. rule out infectious etiology. lower suspicion for acute dissection, ICH/SAH, CVA/TIA, intra-abdominal pathology Plan: EKG, labs, UA, CXR, head CT, IVF, orthostatics, re-evaluate Please refer to course for remaining clinical decision making, interpretation of labs/imaging results, and discussions with consultants and/or family members. Differential Diagnosis Differential Diagnoses: The differential diagnosis associated with the presentation includes As above Admission/Observation Consideration of admission/observation: Escalation of care including admission/observation considered Lab Data [facility] Lab Attestation statement: I reviewed the patient's lab results. 04/18/25 08:58 04/18/25 09:36 Labs: Lab Results 04/18/25 04/18/25 04/18/25 Range/Units 08:36 08:58 09:36 WBC 8.9 (4.8-10.8) X10*3/uL RBC 4.60 (4.60-5.80) X10*6/uL Hgb 14.5 (14.0-18.0) g/dl Hct 43.0 (42.0-52.0) % MCV 93.5 (80.0-98.0) fL MCH 31.5 (27.0-33.0) pg MCHC 33.7 (31.0-36.0) g/dl RDW 11.3 (11.0-16.0) % Plt Count 303 (160-400) X10*3/uL MPV 9.1 L (9.4-12.4) fL Immature Gran % (Auto) 0.3 (0.0-0.4) % Neut % (Auto) 72.9 (45-73) % Lymph % (Auto) 19.3 L (20-40) % [place] % (Auto) 5.6 (2-11) % Eos % (Auto) 1.5 (0-4) % Baso % (Auto) 0.4 (0-2) % Lymph # (Auto) 1.7 (1.2-4.9) X10*3/uL [place] # (Auto) 0.5 (0.1-1.2) X10*3/uL Eos # (Auto) 0.1 (0.0-0.4) X10*3/uL Baso # (Auto) 0.0 (0.0-0.2) X10*3/uL Abs Immat Gran (auto) 0.03 (0.00-0.03) X10*3/uL Absolute Neuts (auto) 6.5 (2.0-8.3) x10*3/uL Absolute Nucleated RBC 0.000 (0.0-0.012) X10*3/uL Nucleated RBC % (auto) 0.0 (0.0-0.2) /100WBC Sodium 139 (135-145) mmol/L Potassium 4.4 (3.3-5.1) mmol/L Chloride 106 (96-108) mmol/L Carbon Dioxide 27 (22-29) mmol/L Anion Gap 10 L (12-20) BUN 13 (9-16) mg/dL Creatinine 0.98 (0.5-1.4) mg/dL Estim Creat Clear Calc 78.1 Estimated GFR > 60 Random Glucose 95 (60-115) mg/dL Calcium 9.0 D (8.4-10.2) mg/dL Magnesium 1.8 (1.6-2.6) mg/dL Total Bilirubin 0.6 (0.0-1.0) mg/dL Direct Bilirubin 0.2 (0.0-0.5) mg/dL AST 21 (5-37) U/L ALT 17 (0-40) U/L Alkaline Phosphatase 80 (39-117) U/L Troponin I High Sens < 2.7 (<3.5-35.0) ng/L Total Protein 6.5 (6.5-8.0) g/dL Albumin 4.3 (3.5-5.0) g/dL Urine Color Urine Appearance Urine pH (5.0-9.0) Ur Specific Carbon (1.005-1.025) Urine Protein (Neg-Trace) mg/dL Urine Glucose (UA) (Negative) mg/dL Urine Ketones (Negative) mg/dL Urine Blood (Negative) Urine Nitrite (Negative) Ur Leukocyte Esterase (Negative) Urine RBC (0-2) /HPF Urine WBC (0-5) /HPF Ur Squamous Epith Cells (0-2) /HPF Urine Bacteria (None Seen) Hyaline Casts (0-2) /LPF Granular Casts Influenza Type A (PCR) NEGATIVE (Negative) Influenza Type B (PCR) NEGATIVE (Negative) RSV RNA Qual (PCR) NEGATIVE (Negative) SARS-CoV-2 RNA (RT-PCR) NEGATIVE (Negative) 04/18/25 04/18/25 Range/Units 10:29 11:49 WBC (4.8-10.8) X10*3/uL RBC (4.60-5.80) X10*6/uL Hgb (14.0-18.0) g/dl Hct (42.0-52.0) % MCV (80.0-98.0) fL MCH (27.0-33.0) pg MCHC (31.0-36.0) g/dl RDW (11.0-16.0) % Plt Count (160-400) X10*3/uL MPV (9.4-12.4) fL Immature Gran % (Auto) (0.0-0.4) % Neut % (Auto) (45-73) % Lymph % (Auto) (20-40) % [place] % (Auto) (2-11) % Eos % (Auto) (0-4) % Baso % (Auto) (0-2) % Lymph # (Auto) (1.2-4.9) X10*3/uL [place] # (Auto) (0.1-1.2) X10*3/uL Eos # (Auto) (0.0-0.4) X10*3/uL Baso # (Auto) (0.0-0.2) X10*3/uL Abs Immat Gran (auto) (0.00-0.03) X10*3/uL Absolute Neuts (auto) (2.0-8.3) x10*3/uL Absolute Nucleated RBC (0.0-0.012) X10*3/uL Nucleated RBC % (auto) (0.0-0.2) /100WBC Sodium (135-145) mmol/L Potassium (3.3-5.1) mmol/L Chloride (96-108) mmol/L Carbon Dioxide (22-29) mmol/L Anion Gap (12-20) BUN (9-16) mg/dL Creatinine (0.5-1.4) mg/dL Estim Creat Clear Calc Estimated GFR Random Glucose (60-115) mg/dL Calcium (8.4-10.2) mg/dL Magnesium (1.6-2.6) mg/dL Total Bilirubin (0.0-1.0) mg/dL Direct Bilirubin (0.0-0.5) mg/dL AST (5-37) U/L ALT (0-40) U/L Alkaline Phosphatase (39-117) U/L Troponin I High Sens < 2.7 (<3.5-35.0) ng/L Total Protein (6.5-8.0) g/dL Albumin (3.5-5.0) g/dL Urine Color Yellow Urine Appearance Clear Urine pH 7.5 (5.0-9.0) Ur Specific Carbon <= 1.005 (1.005-1.025) Urine Protein Negative (Neg-Trace) mg/dL Urine Glucose (UA) Negative (Negative) mg/dL Urine Ketones Negative (Negative) mg/dL Urine Blood Moderate (2+) H (Negative) Urine Nitrite Negative (Negative) Ur Leukocyte Esterase Moderate (2+) H (Negative) Urine RBC 3-5 H (0-2) /HPF Urine WBC 21-50 H (0-5) /HPF Ur Squamous Epith Cells 0-2 (0-2) /HPF Urine Bacteria None Seen (None Seen) Hyaline Casts 3-5 (0-2) /LPF Granular Casts Present Influenza Type A (PCR) (Negative) Influenza Type B (PCR) (Negative) RSV RNA Qual (PCR) (Negative) SARS-CoV-2 RNA (RT-PCR) (Negative) Independent Interpretation I performed an independent interpretation of an: EKG ( MY INTERPRETATION: EKG NORMAL SINUS RHYTHM RATE OF 78. [place] INTERVAL 128. NO SIGNIFICANT CHANGE WHEN COMPARED TO PRIOR. NO STEMI), Plain X-Ray and CT Scan Radiology Impression Discussion of test interpretation with radiology: I have reviewed the radiologist's reading. External Record Review External record reviewed: Inpatient record, Office record, Outpatient record, Prior outpatient labs, Prior outpatient radiology, Primary care record and Outside ED record Tests considered The following testing was considered but not selected: As above Prescription Management I considered prescription management with: Pain Medication and Antibiotic Chronic Conditions Patient?s care impacted by: Other (asthma) Social Determinants Patient?s care significantly limited by Social Determinants of Health including: Other Social Determinant of Health Discharge Plan Discharge Clinical Impression: Pre-syncope, Nausea & vomiting Patient Disposition: Home, Self-Care Instructions: Acute Nausea and Vomiting (DC), Near Syncope (ED) Additional Instructions: your blood work and imaging studies are reassuring Please have close follow-up with your primary care doctor as well as Urology for a trial to void/removal of her catheter If your symptoms recur, persist, you have chest pain/shortness of breath, headache, weakness return to the ED immediately Prescriptions: No Action albuterol sulfate 90 mcg/actuation HFA aerosol inhaler 2 inh inhalation Q6-8H PRN (Reason: shortness of breath or wheezing) 30 Days Qty: 8.5 2RF bupropion HCl 300 mg tablet extended release 24 hr 300 mg PO QAM omeprazole 40 mg capsule,delayed release(DR/EC) 40 mg PO DAILY Qty: 90 0RF tamsulosin [Flomax] 0.4 mg capsule 0.4 mg PO DAILY 90 Days Qty: 90 0RF tramadol 50 mg tablet 50 mg PO Q8H PRN (Reason: pain) 7 Days Qty: 15 0RF tadalafil 20 mg tablet 20 mg PO ONCE PRN (Reason: sexual activity) 30 Days Qty: 30 4RF Rx Instructions: Use 60 minutes prior to intended activity USE [employer] COU[employer] NOT INSURANCE tirzepatide 5 mg/0.5 mL pen injector 5 mg subcut QWEEK 28 Days Qty: 2 0RF Rx Instructions: for 4 weeks sulfamethoxazole-trimethoprim [Bactrim DS] 800-160 mg tablet 1 tab PO BID 14 Days Qty: 28 0RF naproxen [Naprosyn] 500 mg tablet 500 mg PO Q12H PRN (Reason: pain) 30 Days Qty: 60 0RF lamotrigine 200 mg tablet 200 mg PO DAILY lorazepam 1 mg tablet 1 mg PO BID sertraline [Zoloft] 50 mg tablet 50 mg PO DAILY loratadine 10 mg tablet 10 mg PO DAILY ipratropium-albuterol 0.5 mg-3 mg(2.5 mg base)/3 mL solution for nebulization 3 ml inhalation ONCE Qty: 3 0RF Referrals: Bandar Chavarria MD [Primary Care Provider, Internal Medicine] - 3 days Interventions: ED Discharge Assessment Last Done: 04/18/25 14:15 Discharge Date/Time: 04/18/25 14:15 Print Language: Macedonian
--- OUTSIDE RECORDS SUMMARY | 2025-04-18 08:38 | XMS_ITS | Clinical Summary ---
Author Organization [employer] Address [address] [place] [address] Care Team Providers Care Emergency Medical Dispatcher Name Role Phone Unavailable Primary Care Provider [...]
--- OUTSIDE RECORDS SUMMARY | 2025-04-18 08:38 | XMS_ITS | Encounter Summary ---
Author Organization [employer] Address [address] [place] [address] Care Team Providers Care Solderer Barrel Ribs Name Role Phone Unavailable Primary Care Provider Unavailabl e Encounter Details Date Type Department Care Team (Latest Contact Info) Description 01/26/[address] [facility] CONVERSIONS Dental, Provider, DDS Social History [...]
--- OUTSIDE RECORDS SUMMARY | 2025-04-18 08:38 | XMS_ITS | Patient Health Record ---
Author Organization [facility] Address [address] [place] [address] Care Team Providers Care Newspaper Journalist Name Role Phone KEEGAN BENDER Primary Care Provider Fermin Sandoval Unavailable [phone] Allergies Allergen (clinical drug ingredient) Drug/Non Drug [...] Problem Screening for malignant neoplasm of colon (926818104) Encounter for screening for malignant neoplasm of colon (Z12.11) Active confirmed Problem Screening for malignant neoplasm of rectum (800852111) Encounter for screening for malignant neoplasm of rectum (Z12.12) Active confirmed Problem Preprocedural examination (323174685531354) Preprocedural examination (Z01.818) Active confirmed Problem History of polyp of colon (situation) (531344943) History of colon polyps (Z86.010) Active confirmed Problem Fatty liver (890531557) Fatty liver (K76.0) Active confirmed Problem Diverticulosis of colon (087751251) Diverticulosis of colon (K57.30) Active confirmed Plan Of Treatment Pending Test Test Name Order Date Pathology 04/16/2021 Future Test Test Name Order Date COLONOSCOPY 06/14/2015 COLONOSCOPY 03/20/2021 Insurance Providers Payer Name Payer Address Payer Phone Subscriber Number Group Number Insured Name Patient Relationship to Insured Coverage Start Date Coverage End Date [facility] [address] [place] [phone] [id number] ALEXANDRO VALLEJO Self - patient is the insured Medical (General) History Medical History History ICD Code Denies MO,DM,CVA,Lung disease,renal dise ase GERD-rarely uses PPI Depression Fatty liver on the [place] in 2014 but nor mal LFT's in 2013 Colonoscopies age 32(in [facility]) and approx 2008(in [place]) with removal of polyps; colonoscopy 08/2015 with only a hyperplastic polyp Asthma Surgical History Surgery Date(Month/Year) Sinus surgery x2 Varicocele x 2
--- OUTSIDE RECORDS SUMMARY | 2025-04-18 08:38 | XMS_ITS | Encounter Summary ---
Author Organization [employer] Address [address] [facility] [address] [place] [address] Care Team Providers Care Safety Specialist Name Role Phone Unavailable Primary Care Provider Unavailabl e Encounter Details Date Type Department Care Team (Latest Contact Info) Description 02/23/2020 Abstract [facility] CONVERSIONS Dental, Provider, DDS Social [...]
--- OUTSIDE RECORDS SUMMARY | 2025-04-18 08:38 | XMS_ITS | Clinical Summary ---
Author Organization [facility] Address [address] [place] [address] Phone Care Team Providers Care Grain Combine Driver Name Role Phone Harpal Bob DO Primary Care Provider [phone] Allergies No known active allergies Social History [...] Medical Devices Not on file Care Teams Grain Combine Driver Relationship Specialty Start Date End Date Harpal Bob DO [address] [place] [address] PCP - General 10/26/13 Additional Source Comments The information contained in this document represents components of the legal health record. It is not the complete legal health record.[facility]
[2025-04-18 09:01] LABS: MANUAL DIFF FLAG NO
[2025-04-18 09:04] LABS: Hematocrit 43.0 % (42.0-52.0); Hemoglobin 14.5 g/dl (14.0-18.0); Imm Gran Abs Auto 0.03 X10*3/uL (0.00-0.03); Imm Gran Pct Auto 0.3 % (0.0-0.4); Lymphocytes Absolute Auto 1.7 X10*3/uL (1.2-4.9); Mean Corpuscular HGB Conc 33.7 g/dl (31.0-36.0); Mean Corpuscular Hemoglobin 31.5 pg (27.0-33.0); Mean Corpuscular Volume 93.5 fL (80.0-98.0); NRBC Abs Auto 0.000 X10*3/uL (0.0-0.012); NRBC Pct Auto 0.0 /100WBC (0.0-0.2); Platelet Count 303 X10*3/uL (160-400); Red Blood Count 4.60 X10*6/uL (4.60-5.80); White Blood Count 8.9 X10*3/uL (4.8-10.8)
[2025-04-18 09:17] LABS: Resp Syncy Virus RNA Qual PCR NEGATIVE (Negative); SARS COV2 PCR INHOUSE NEGATIVE (Negative)
[2025-04-18 10:09] LABS: Alanine Aminotransferase 17 U/L (0-40); Albumin Level 4.3 g/dL (3.5-5.0); Alkaline Phosphatase 80 U/L (39-117); Anion Gap 10 (12-20); Aspartate Amino Transferase 21 U/L (5-37); Blood Urea Nitrogen 13 mg/dL (9-16); Calcium 9.0 mg/dL (8.4-10.2); Carbon Dioxide 27 mmol/L (22-29); Chloride 106 mmol/L (96-108); Creatinine Clr Calc Pharmacy 78.1; Estimated Glomerular Filt Rate > 60; Magnesium 1.8 mg/dL (1.6-2.6); Potassium 4.4 mmol/L (3.3-5.1); Sodium 139 mmol/L (135-145); Total Protein 6.5 g/dL (6.5-8.0)
[2025-04-18 10:17] LABS: Troponin-I High Sensitivity < 2.7 ng/L (<3.5-35.0)
[2025-04-18 10:37] LABS: Appearance Urine Clear; Glucose Urine UA Negative (Negative); PH 7.5 (5.0-9.0); Specific Gravity - Urine <= 1.005 (1.005-1.025); UMIC TRIGGER UACC YES
[2025-04-18 10:45] LABS: UACC Culture Trigger YES
[2025-04-18 12:18] LABS: Troponin-I High Sensitivity < 2.7 ng/L (<3.5-35.0)
== END 2025-04-18 14:15 | disposition home or self-care (01) ==
PROVIDERS: Physician Assistant; Emergency Provider Emergency Medicine; PCP Internal Medicine
DX: R55 Syncope and collapse (principal); R42 Dizziness and giddiness; R11.0 Nausea; Z79.899 Other long term (current) drug therapy; Z87.891 Personal history of nicotine dependence; Z03.818 Encounter for observation for suspected exposure to other biological agents ruled out
CPT/HCPCS: 36415; 51702; 51798; 70450; 71045; 80048; 80053; 80076; 81001; 81003; 83735; 84484; 85025; 87086; 87637; 93005; 96361; 96374; 99284; 99285; J2405

== ENCOUNTER → 2025-04-18 08:04 | Outpatient (BNV) | payer OTHER, SELFPAY | PROVIDERS: Emergency Provider Emergency Medicine; PCP Internal Medicine; Visit Provider Internal Medicine Cardiovascular Disease | DX: R55 Syncope and collapse (principal) | CPT/HCPCS: 93010 ==

== ENCOUNTER → 2025-04-18 08:31 | Outpatient (BNV) | payer OTHER, SELFPAY | PROVIDERS: Emergency Provider Emergency Medicine; PCP Internal Medicine; Visit Provider Radiology Diagnostic Radiology | DX: R42 Dizziness and giddiness (principal); R11.2 Nausea with vomiting, unspecified; R55 Syncope and collapse | CPT/HCPCS: 70450; 71045 ==